=== PATIENT | female | born 1950 | race Caucasian/White ===

== ENCOUNTER 2022-11-02 04:33 | Inpatient (IN) | payer MEDICARE, OTHER, SELFPAY ==
[2022-11-02] VITALS (11 sets, daily range): BP systolic 150–223; BP diastolic 63–85; PULSE 70–85; RESP 16–24; TEMP 36.3–37; O2SAT 90–98; BMI 32.9
--- NOTE | 2022-11-02 | ECG_ITS ---
Test Reason : HYPERTENTION Blood Pressure : / mmHG Vent. Rate : 071 BPM Atrial Rate : 071 BPM P-R Int : 120 ms QRS Dur : 072 ms QT Int : 398 ms P-R-T Axes : 048 042 033 degrees QTc Int : 432 ms Normal sinus rhythm Normal ECG No previous ECGs available Referred By: Generic ED Physician Electronically Signed By:LAESIA LUCIANO MD
--- NOTE | ~2022-11-02 | US_ITS ---
EXAMINATION: US ABDOMEN LIMITED CLINICAL INFORMATION: Gallstone and pancreatitis. COMPARISON: CT abdomen 11/02/2022 TECHNIQUE: Real-time imaging of the right upper quadrant abdominal viscera. FINDINGS: PANCREAS: The pancreatic duct in the region of the head of the pancreas is dilated measuring 6 mm. There is an isoechoic focus in the pancreatic duct in the region of the head of the pancreas measuring 1 x 0.4 x 0.6 cm. No significant posterior acoustic shadowing is seen. This of indeterminate etiology. Differential consideration include mass lesion, neoplasm. Visualized pancreatic parenchymal echogenicity is within normal limits. The distal body and tail is obscured by bowel gas. LIVER: Was not evaluated. GALLBLADDER: Innumerable gallstones, with posterior acoustic shadowing. No gallbladder wall thickening, wall measuring 2 mm. No significant pericholecystic fluid. Chemistry Laboratory Technician reports no tenderness in the area of the gallbladder. . COMMON BILE DUCT: Proximal CBD measures 7 mm. The distal CBD is not visualized. US/US abdomen limited IMPRESSION: Limited study. Only the pancreas and gallbladder is evaluated. 1. Cholelithiasis. No sonographic findings to suggest acute cholecystitis at this stage. Short-term follow-up ultrasound for reassessment as clinically warranted. 2. Proximal CBD is borderline prominent measuring 7 mm. The distal CBD is not visualized. 3. Dilatation of the pancreatic duct in the region of the head of the pancreas measuring 6 mm. There is a isoechoic focus measuring 1 x 0.4 x 0.6 cm in the pancreatic duct, of indeterminate etiology. Differential consideration include mass lesion/neoplasm, intraluminal filling defect/stone. Recommend further evaluation with MRI without and with contrast, MRCP.
--- NOTE | ~2022-11-02 | US_ITS ---
EXAMINATION: US PELVIS CLINICAL INFORMATION: Adnexal mass COMPARISON: CT 11/02/2022 TECHNIQUE: Ultrasound of the pelvis is performed using both transabdominal and transvaginal transducers along with Doppler. Transvaginal imaging is performed due to inadequate visualization transabdominally. FINDINGS: Uterus: Uterus is retroverted and retroflexed. This limits evaluation. No gross lesion identified.. Endometrium is not visualized. Adnexa: There is a right adnexal mass with cystic and solid components. This overall measures 7.2 x 7.4 x 6.3 cm. There is vascular flow seen. This correlates with the finding seen on today's CT scan. The left ovary is not visualized. No significant free fluid. US/US pelvic complete IMPRESSION: As seen on the CT scan from today, there is a mixed cystic and solid masslike focus, with vascularity present, in the right adnexa measuring 7.2 x 7.4 x 6.3 cm. This may reflect a neoplasm. Gynecological consultation and further workup with pre and postcontrast pelvic MRI is recommended. Uterus is retroverted and retroflexed, suboptimally visualized and evaluated. Endometrium is not visualized.
--- NOTE | ~2022-11-02 | CT_ITS ---
EXAMINATION: CT ABDOMEN AND PELVIS WITH CONTRAST CLINICAL INFORMATION: Upper abdominal pain, question etiology COMPARISON: None available. TECHNIQUE: Multidetector volumetric images were obtained from the superior aspect of the liver through the pubic symphysis following administration 85 mL of Omnipaque 350 intravenous contrast. Sagittal and coronal reformatted images were obtained on the technologist's workstation. Oral contrast: No This CT examination was performed using dose optimization techniques as appropriate, variously including the following: *Automated exposure control *Adjustment of mA and/or kV according to patient size (this includes techniques or standardized protocols for targeted exams where dose is matched to indication/reason for exam; i.e. extremities or head) *Use of iterative reconstruction technique DLP: 1413 mGy-cm FINDINGS: LUNG BASES: The visualized lung bases are unremarkable. LIVER, GALLBLADDER, AND BILIARY TREE: The liver is normal in size, shape, and attenuation. No focal hepatic lesion or biliary ductal dilatation is present. Multiple gallstones are present. No appreciable gallbladder wall thickening or surrounding inflammation. PANCREAS: Homogeneously enhancing. There is subtle peripancreatic stranding. SPLEEN: Unremarkable. ADRENAL GLANDS: Unremarkable. KIDNEYS AND URETERS: Multiple renal sinus cysts noted; no follow-up recommended. Bilateral nephrograms are symmetric. Mildly prominent renal pelvises, without obstructing calculus. BLADDER: Unremarkable. GASTROINTESTINAL TRACT: There is some fluid and stranding adjacent to the proximal lesser curvature of the stomach, for which gastritis is a possibility. No evidence of bowel obstruction. Colonic diverticulosis is noted. No significant colonic wall thickening is seen. The appendix is unremarkable. No free fluid or free air is seen. ABDOMINAL WALL: No significant hernia is appreciated. LYMPH NODES: Normal. VASCULAR: Scattered atherosclerotic calcifications. PELVIC VISCERA: Multicystic appearance of the right adnexa, with largest component measuring approximately 4 cm in diameter, though soft tissue components are also present. Overall this has a mixed cystic/solid masslike appearance which measures up to approximately 7 cm in diameter (AP dimension). OSSEOUS STRUCTURES: Degenerative changes are noted in the spine. CT/CT abdomen pelvis w IV con IMPRESSION: 1. Fluid and stranding adjacent to the proximal lesser curvature of the stomach, for which gastritis is a possibility. 2. Subtle peripancreatic stranding. Correlation with laboratory values is recommended to assess for pancreatitis. Alternatively, this could reflect sequelae of inflammation from the adjacent stomach. 3. Cholelithiasis. If there is clinical concern for cholecystitis, this would be best further assessed with ultrasound. 4. Mixed cystic and solid masslike appearance of the right adnexa, measuring up to 7 cm in diameter; this may represent neoplasm. If not already performed, further workup with pre and postcontrast pelvic MRI is recommended.
--- NOTE | ~2022-11-02 | MR_ITS ---
EXAMINATION: MR ABDOMEN AND PELVIS WITHOUT AND WITH CONTRAST CLINICAL INFORMATION: Abnormal pancreatic and pelvic findings on recent CT scan. COMPARISON: CT scan and ultrasound of the abdomen and pelvis both dated 11/02/2022. TECHNIQUE: MRI of the abdomen and pelvis before and after the IV administration of 6 mL of Gadavist was obtained using routine sequences. MRCP was also performed with 3-D reconstructed images on a separate workstation. FINDINGS: Inferior chest: Unremarkable. Liver: Unremarkable. Biliary: Multiple small gallstones without surrounding abnormality. Pancreas: No focal mass. No pancreatic ductal dilatation. No peripancreatic abnormality. Spleen: Unremarkable. Adrenal glands: Unremarkable. Kidneys/proximal ureters: Multiple T2 hyperintense, nonenhancing cysts bilaterally, majority of which are peripelvic. No hydroureteronephrosis. Urinary bladder: Minimally distended without focal abnormality. Bowel: The stomach, small bowel and appendix are unremarkable. The colon shows mild to moderate diverticulosis, most pronounced in the sigmoid colon without surrounding abnormality. The rectum is unremarkable. Pelvic viscera: Anteverted/anteflexed uterus. Asymmetrically enlarged right ovary with multiple T2 hyperintense, nonenhancing cysts. One of the largest measures up to 2.8 cm (image 13, series 3). A left ovary is unremarkable. Mild free fluid in the cul-de-sac. Vascular: Unremarkable. Lymph Nodes: No lymphadenopathy. Musculoskeletal: Mild to severe multilevel degenerative disc disease most pronounced at L2-3, L4-5 and L5-S1. Probable small vertebral body hemangioma in T12. Soft tissues: Very small fat-containing umbilical hernia without associated abnormality. MR/MR abdomen wo/w con IMPRESSION: 1. Cholelithiasis without evidence for acute cholecystitis. 2. No significant pancreatic abnormality. No evidence for acute pancreatitis. 3. Asymmetrically enlarged right ovary with multiple cysts is nonspecific, but demonstrate overall benign features correlating with previous CT and ultrasound findings. Mild free fluid in the cul-de-sac is nonspecific as well. Given the patient's age, short-term follow-up contrast-enhanced pelvic MRI is recommended in 3-6 months to assess for change. 4. Multiple bilateral renal cysts demonstrate benign features. 5. Mild to moderate colonic diverticulosis without evidence for acute diverticulitis.
--- NOTE | 2022-11-02 04:59 | ED_ITS ---
HPI - General Adult General Chief complaint: General Medical Stated complaint: hypertension Time Seen by Provider: 11/02/22 04:59 Source: patient Mode of arrival: EMS Limitations: no limitations History of Present Illness HPI narrative: Patient with no significant past medical history no abdominal surgery in the p ast comes here for upper abdominal pain since afternoon today after she had lunch pain went away during daytime again patient woke up from her sleep around 03:30 to go to bathroom and felt same kind of pain radiating to the back, felt dizzy no diaphoresis patient was elevated to 179/94 patient never had history of high blood pressure no chest pain or palpitation. No urinary symptoms Related Data Allergies Allergy/AdvReac Type Severity Reaction Status Date / Time No Known Allergies Allergy Verified 11/02/22 05:11 Review of Systems Review of Systems: Yes all other systems are reviewed and are negative [facility] Social History Social History Alcohol intake: former Smoked in Last 30 Days: No Use of substances other than those prescribed or required for medical reasons: No Advance Directives: No Advance Directives Information Provided: Yes Physical Exam ED Vital Signs: Vital Signs - 24 hr 11/02/22 04:40 11/02/22 06:14 Temperature 98.4 F 97.9 F Pulse Rate 74 80 Respiratory Rate 20 20 Blood Pressure 223/75 H 203/83 H Pulse Oximetry 98 94 Oxygen Delivery Method Room Air Room Air BMI result Body Mass Index 32.9 Medications Administered Discontinued Medications Generic Name Dose Route Start Last Admin Trade Name Freq PRN Reason Stop Dose Admin Sodium Chloride 1,000 mls @ 999 mls/hr 11/02/22 05:08 11/02/22 06:26 Ns IV 11/02/22 06:08 Infused .Q1H1M ONE Infusion Iohexol 85 ml 11/02/22 06:10 11/02/22 06:10 Iohexol 350 Mg/Ml 100 Ml Infus..Btl IV 11/02/22 06:11 85 ml ONCE ONE Administration Labetalol HCl 20 mg 11/02/22 06:26 11/02/22 06:40 Labetalol Hcl 100 Mg/20 Ml Vial IVPUSH 11/02/22 06:27 20 mg ONCE ONE Administration Morphine Sulfate 4 mg 11/02/22 05:08 11/02/22 05:26 Morphine Sulfate 4 Mg/Ml Cartridge IVPUSH 11/02/22 05:09 4 mg ONCE ONE Administration Protocol Ondansetron HCl 4 mg 11/02/22 05:08 11/02/22 05:25 Ondansetron Hcl 4 Mg/2 Ml Vial IVPUSH 11/02/22 05:09 4 mg ONCE ONE Administration Medical Decision Making Medical Decision Making [facility] Narrative: Patient has acute pancreatitis etiology not clear possible gallstone passed admission to hospitalist will get ultrasound gallbladder GI consult also noticed to have right adnexal mass etiology not very clear possible malignancy Differential Diagnosis Acute cholecystitis/pancreatitis/peptic ulcer disease Consult Healthcare Provider Management of the patient was discussed with: Hospitalist Lab Data [facility] Lab Attestation statement: I reviewed the patient's lab results. 11/02/22 05:11 11/02/22 05:11 Labs: Lab Results 11/02/22 11/02/22 11/02/22 Range/Units 05:11 05:11 05:11 WBC 8.4 (4.8-10.8) X10*3/uL RBC 5.04 (4.20-5.50) X10*6/uL Hgb 14.6 (12.0-16.0) g/dl Hct 43.9 (37.0-47.0) % MCV 87.1 (80.0-98.0) fL MCH 29.0 (27.0-33.0) pg MCHC 33.3 (31.0-35.0) g/dl RDW 12.9 (11.0-16.0) % Plt Count 253 (160-400) X10*3/uL MPV 10.6 (9.4-12.3) fL Immature Gran % (Auto) 0.1 (0.0-0.4) % Neut % (Auto) 63.4 (45-73) % Lymph % (Auto) 27.1 (20-40) % [place] % (Auto) 5.8 (2-11) % Eos % (Auto) 2.5 (0-4) % Baso % (Auto) 1.1 (0-2) % Lymph # (Auto) 2.3 (1.2-4.9) X10*3/uL [place] # (Auto) 0.5 (0.1-1.2) X10*3/uL Eos # (Auto) 0.2 (0.0-0.4) X10*3/uL Baso # (Auto) 0.1 (0.0-0.2) X10*3/uL Abs Immat Gran (auto) 0.01 (0.00-0.03) X10*3/uL Absolute Neuts (auto) 5.3 (2.0-8.3) x10*3/uL Absolute Nucleated RBC 0.000 (0.0-0.012) X10*3/uL Nucleated RBC % (auto) 0.0 (0.0-0.2) /100WBC Sodium 143 (135-145) mmol/L Potassium 4.2 (3.3-5.1) mmol/L Chloride 112 H (96-108) mmol/L Carbon Dioxide 25 (22-29) mmol/L Anion Gap 10 L (12-20) BUN 18 H (9-16) mg/dL Creatinine 0.81 (0.5-1.4) mg/dL Estim Creat Clear Calc 61.2 Estimated GFR > 60 Random Glucose 106 (60-115) mg/dL Calcium 9.4 (8.4-10.2) mg/dL Total Bilirubin 1.4 H (0.0-1.0) mg/dL Direct Bilirubin 0.3 (0.0-0.5) mg/dL AST 167 H (5-31) U/L ALT 303 H (0-31) U/L Alkaline Phosphatase 130 H (39-117) U/L Troponin I High Sens 3.1 (<3.5-17.0) ng/L Total Protein 6.2 L (6.5-8.0) g/dL Albumin 4.1 (3.5-5.0) g/dL Lipase 886 H (8-78) U/L Urine Color Urine Appearance Urine pH (5.0-9.0) Ur Specific [place] (1.005-1.025) Urine Protein (Neg-Trace) mg/dL Urine Glucose (UA) (Negative) mg/dL Urine Ketones (Negative) mg/dL Urine Blood (Negative) Urine Nitrite (Negative) Ur Leukocyte Esterase (Negative) Urine RBC (0-2) /HPF Urine WBC (0-5) /HPF Ur Squamous Epith Cells (0-2) /HPF Urine Bacteria (None Seen) Hyaline Casts (0-2) /LPF 11/02/22 Range/Units 05:32 WBC (4.8-10.8) X10*3/uL RBC (4.20-5.50) X10*6/uL Hgb (12.0-16.0) g/dl Hct (37.0-47.0) % MCV (80.0-98.0) fL MCH (27.0-33.0) pg MCHC (31.0-35.0) g/dl RDW (11.0-16.0) % Plt Count (160-400) X10*3/uL MPV (9.4-12.3) fL Immature Gran % (Auto) (0.0-0.4) % Neut % (Auto) (45-73) % Lymph % (Auto) (20-40) % [place] % (Auto) (2-11) % Eos % (Auto) (0-4) % Baso % (Auto) (0-2) % Lymph # (Auto) (1.2-4.9) X10*3/uL [place] # (Auto) (0.1-1.2) X10*3/uL Eos # (Auto) (0.0-0.4) X10*3/uL Baso # (Auto) (0.0-0.2) X10*3/uL Abs Immat Gran (auto) (0.00-0.03) X10*3/uL Absolute Neuts (auto) (2.0-8.3) x10*3/uL Absolute Nucleated RBC (0.0-0.012) X10*3/uL Nucleated RBC % (auto) (0.0-0.2) /100WBC Sodium (135-145) mmol/L Potassium (3.3-5.1) mmol/L Chloride (96-108) mmol/L Carbon Dioxide (22-29) mmol/L Anion Gap (12-20) BUN (9-16) mg/dL Creatinine (0.5-1.4) mg/dL Estim Creat Clear Calc Estimated GFR Random Glucose (60-115) mg/dL Calcium (8.4-10.2) mg/dL Total Bilirubin (0.0-1.0) mg/dL Direct Bilirubin (0.0-0.5) mg/dL AST (5-31) U/L ALT (0-31) U/L Alkaline Phosphatase (39-117) U/L Troponin I High Sens (<3.5-17.0) ng/L Total Protein (6.5-8.0) g/dL Albumin (3.5-5.0) g/dL Lipase (8-78) U/L Urine Color Yellow Urine Appearance Clear Urine pH 7.5 (5.0-9.0) Ur Specific [place] 1.010 (1.005-1.025) Urine Protein Negative (Neg-Trace) mg/dL Urine Glucose (UA) Negative (Negative) mg/dL Urine Ketones Trace (Negative) mg/dL Urine Blood Negative (Negative) Urine Nitrite Negative (Negative) Ur Leukocyte Esterase Trace H (Negative) Urine RBC 0-2 (0-2) /HPF Urine WBC 0-5 (0-5) /HPF Ur Squamous Epith Cells 0-2 (0-2) /HPF Urine Bacteria None Seen (None Seen) Hyaline Casts 0-2 (0-2) /LPF Independent Interpretation I performed an independent interpretation of an: EKG Interpretation: Normal sinus rhythm heart rate 71 beats per minute normal interval normal axis no acute ST change and no acute ischemia Radiology Impression Discussion of test interpretation with radiology: I have reviewed the radiologist's reading. Radiologist Impression: RDER #: [id number] CT/CT abdomen pelvis w IV con IMPRESSION: 1.? Fluid and stranding adjacent to the proximal lesser curvature of the stomach, for which gastritis is a possibility. 2.? Subtle peripancreatic stranding. Correlation with laboratory values is recommended to assess for pancreatitis. Alternatively, this could reflect sequelae of inflammation from the adjacent stomach. 3.? Cholelithiasis. If there is clinical concern for cholecystitis, this would be best further assessed with ultrasound. 4.? Mixed cystic and solid masslike appearance of the right adnexa, measuring up to 7 cm in diameter; this may represent neoplasm. If not already performed, further workup with pre and postcontrast pelvic MRI is recommended. Discharge Plan Discharge Clinical Impression: Acute biliary pancreatitis Patient Disposition: Admitted As Inpatient
[2022-11-02 05:15] LABS: Basophils Absolute Auto 0.1 X10*3/uL (0.0-0.2); Basophils Percent Auto 1.1 % (0-2); Eosinophils Absolute Auto 0.2 X10*3/uL (0.0-0.4); Eosinophils Percent Auto 2.5 % (0-4); Hematocrit 43.9 % (37.0-47.0); Hemoglobin 14.6 g/dl (12.0-16.0); Imm Gran Abs Auto 0.01 X10*3/uL (0.00-0.03); Imm Gran Pct Auto 0.1 % (0.0-0.4); Lymphocytes Absolute Auto 2.3 X10*3/uL (1.2-4.9); Lymphocytes Percent Auto 27.1 % (20-40); MANUAL DIFF FLAG NO; Mean Corpuscular HGB Conc 33.3 g/dl (31.0-35.0); Mean Corpuscular Volume 87.1 fL (80.0-98.0); Mean Platelet Volume 10.6 fL (9.4-12.3); Monocytes Absolute Auto 0.5 X10*3/uL (0.1-1.2); Monocytes Percent Auto 5.8 % (2-11); Neutrophils Absolute Auto 5.3 x10*3/uL (2.0-8.3); Neutrophils Percent Auto 63.4 % (45-73); Platelet Count 253 X10*3/uL (160-400); Red Blood Count 5.04 X10*6/uL (4.20-5.50); Red Cell Distribution Width 12.9 % (11.0-16.0); White Blood Count 8.4 X10*3/uL (4.8-10.8)
[2022-11-02] MEDS: ondansetron HCL 4 MG/2 ML VIAL IVPUSH (05:25)
[2022-11-02] MEDS: 0.9 % Sodium Chloride 1,000 ML 999 ML IV (05:25)
[2022-11-02] MEDS: Morphine Sulfate 4 MG/ML CARTRIDGE IVPUSH (05:26)
[2022-11-02 05:35] LABS: Anion Gap 10 (12-20); Bilirubin Direct 0.3 mg/dL (0.0-0.5); Bilirubin Total 1.4 mg/dL (0.0-1.0); Blood Urea Nitrogen 18 mg/dL (9-16); Carbon Dioxide 25 mmol/L (22-29); Chloride 112 mmol/L (96-108); Glucose Random 106 mg/dL (60-115); Potassium 4.2 mmol/L (3.3-5.1); Sodium 143 mmol/L (135-145)
[2022-11-02 05:36] LABS: Alanine Aminotransferase 303 U/L (0-31); Albumin Level 4.1 g/dL (3.5-5.0); Alkaline Phosphatase 130 U/L (39-117); Aspartate Amino Transferase 167 U/L (5-31); Calcium 9.4 mg/dL (8.4-10.2); Creatinine Clr Calc Pharmacy 61.2; Estimated Glomerular Filt Rate > 60; Total Protein 6.2 g/dL (6.5-8.0)
[2022-11-02 05:37] LABS: Troponin-I High Sensitivity 3.1 ng/L (<3.5-17.0)
[2022-11-02 05:38] LABS: Appearance Urine Clear; Color Urine Yellow; Glucose Urine UA Negative (Negative); Leukocyte Esterase Urine Trace (Negative); Nitrite Urine Negative (Negative); PH 7.5 (5.0-9.0); UMIC TRIGGER UACC YES; Urine Blood Negative (Negative); Urine Ketones Trace mg/dL (Negative); Urine Protein Negative (Neg-Trace)
[2022-11-02 05:43] LABS: Bacteria Urine None Seen (None Seen); Hyaline Casts Urine 0-2 /LPF (0-2); RBC Urine 0-2 /HPF (0-2); Squamous Epithelial Cell Urine 0-2 /HPF (0-2); WBC Urine 0-5 /HPF (0-5)
[2022-11-02 05:43] LABS: Lipase 886 U/L (8-78)
[2022-11-02] MEDS: iohexoL 350 MG/ML 100 ML INFUS..BTL 85 ML IV (06:10)
[2022-11-02] MEDS: Labetalol HCL 100 MG/20 ML VIAL 20 MG IVPUSH (06:40)
[2022-11-02 08:23] LABS: Triglycerides 95 mg/dL
--- NOTE | 2022-11-02 09:55 | PC.NURSE ---
alert and oreinted.. positive bowel sounds x 4, no complaints of abdominal pain
--- NOTE | 2022-11-02 11:15 | P.HPHOSP_ITS ---
History of Present Illness Date of Service: 11/02/22 Attending physician on admission: Hailey Jasmine Chief Complaint: Abdominal Pain Pt is a 72-year-old female with no significant past medical or surgery history who presents to the ED with?severe abdominal pain and difficulty breathing. Pt states she has been experiencing intermittent heartburn the past 3-4 months. Pain would begin in her lower abdomen then migrate to the pigastric region and sometimes radiate to her back and up to her throat. Pain is described as a burning, gnawing, and sometimes crampy, and typically would last 15-20 minutes. Is usually postprandial but not associated with any specific kinds of food. Yesterday evening pt began experiencing the abdominal pain but it lasted longer than normal. Pt went to bed still feeling off and awoke at 3am with severe pain that would not diminish. Pt also was experiencing nausea and difficulty breathing, which prompted her trip to the ED for further evaluation. Patient denies fever, chills, vomiting, diarrhea. No chest pain/pressure, palpitations. Patient denies recent unexpected weight loss, night sweats, anorexia. No hematochezia, melena, pelvic pain, or abnormal uterine bleeding. In the ED patient was found to be afebrile but tachypneic up to 21 and hypertensive up to 223/75. Labs were significant for hyperbilirubinemia 1.4, AST 167, ALT 303, alk-phos 130, lipase 86. Stable H&H, no leukocytosis. Renal function normal. UA negative for UTI. CT?of abdomen and pelvis the showed fluid and stranding adjacent to lesser curvature of stomach and peripancreatic s tranding, cholelithiasis, and a mixed cystic and solid masslike appearance of the right adnexa measuring 7 cm concerning for neoplasm. Abdominal ultrasound found cholelithiasis without suggestion for acute cholecystitis, dilation of the pancreatic duct in the region of the head of the pancreas measuring 6 mm, and an isoechoic focus measuring 1 x 0.4 x 0.6 cm the pancreatic duct concerning for mass/lesion/neoplasmor intraluminal filling defect/stone. Pelvic ultrasound found a mixed cystic and solid masslike focus with vascularity in the right adnexa measuring 7.2 x 7.4 x 6.3 cm concerning for neoplasm. EKG demonstrated normal sinus rhythm without evidence of ST elevations or depressions. Pt was treated with IVF, ondansetron, morphine, labetalol. Pt will be admitted to the hospital for treatment of acute pancreatitis and further workup of adnexal mass. Review of Systems Review of Systems: Postprandial epigastric abdominal pain occasionally radiating to back and throat Nausea Difficulty breathing Denies fever, chills, vomiting, diarrhea No chest pain/pressure, palpitations Denies recent unexpected weight loss, night sweats, anorexia No hematochezia, melena, pelvic pain, or abnormal uterine bleeding Yes all other systems are reviewed and are negative PMFSH Social History Alcohol intake: former Smoked in Last 30 Days: No Use of substances other than those prescribed or required for medical reasons: No Advance Directives: No Advance Directives Information Provided: Yes Meds Allergies Allergy/AdvReac Type Severity Reaction Status Date / Time No Known Allergies Allergy Verified 11/02/22 05:11 Home Medications Medication Instructions Recorded Confirmed Last Taken Type No Known Home Meds 11/02/22 11/02/22 Unknown History Physical Exam Vital Signs and Narrative: Vital Signs: Last Vital Signs Temp 98.1 F 11/02/22 10:03 Pulse 72 11/02/22 10:19 Resp 21 H 11/02/22 10:19 BP 175/64 H 11/02/22 10:19 Pulse Ox 90 L 11/02/22 10:19 O2 Del Method Nasal Cannula 11/02/22 10:19 O2 Flow Rate 2 11/02/22 10:19 BMI result Body Mass Index 32.9 Constitutional: Alert, in no acute distress. Mental Status: Oriented to person, place and time. Eyes: Pupils are equal, round, and reactive to light. Ear, Nose, and Throat: Oropharynx clear, mucous membranes moist. Ears and nose without deformities. Trachea midline. Respiratory: Clear to auscultation bilaterally. No wheezing, rales, or rhonchi. Cardiovascular: S1, S2 regular. No murmurs, rubs, or gallops. Gastrointestinal: Abdomen soft, non-tender, non-distended. Normal bowel sounds. Neurologic: Cranial nerves II-XII are grossly intact bilaterally. No focal neurological deficits. Moves all extremities spontaneously. Skin: No rashes or lesions noted. Musculoskeletal: No cyanosis or clubbing. No CVA or back tenderness. Extremities: No edema. Psychiatric: Normal mood and affect. Results Labs 11/02/22 05:11 11/02/22 05:11 Labs: Laboratory Results - last 24 hr 11/02/22 11/02/22 11/02/22 05:11 05:11 05:11 MCV 87.1 MCH 29.0 MCHC 33.3 RDW 12.9 Plt Count 253 MPV 10.6 Immature Gran % (Auto) 0.1 Neut % (Auto) 63.4 Lymph % (Auto) 27.1 [place] % (Auto) 5.8 Eos % (Auto) 2.5 Baso % (Auto) 1.1 Lymph # (Auto) 2.3 [place] # (Auto) 0.5 Eos # (Auto) 0.2 Baso # (Auto) 0.1 Abs Immat Gran (auto) 0.01 Absolute Neuts (auto) 5.3 Absolute Nucleated RBC 0.000 Nucleated RBC % (auto) 0.0 Anion Gap 10 L Estim Creat Clear Calc 61.2 Estimated GFR > 60 Random Glucose 106 Calcium 9.4 Total Bilirubin 1.4 H Direct Bilirubin 0.3 AST 167 H ALT 303 H Alkaline Phosphatase 130 H Troponin I High Sens 3.1 Total Protein 6.2 L Albumin 4.1 Triglycerides 95 Lipase 886 H Urine Color Urine Appearance Urine pH Ur Specific [place] Urine Protein Urine Glucose (UA) Urine Ketones Urine Blood Urine Nitrite Ur Leukocyte Esterase Urine RBC Urine WBC Ur Squamous Epith Cells Urine Bacteria Hyaline Casts 11/02/22 05:32 MCV MCH MCHC RDW Plt Count MPV Immature Gran % (Auto) Neut % (Auto) Lymph % (Auto) [place] % (Auto) Eos % (Auto) Baso % (Auto) Lymph # (Auto) [place] # (Auto) Eos # (Auto) Baso # (Auto) Abs Immat Gran (auto) Absolute Neuts (auto) Absolute Nucleated RBC Nucleated RBC % (auto) Anion Gap Estim Creat Clear Calc Estimated GFR Random Glucose Calcium Total Bilirubin Direct Bilirubin AST ALT Alkaline Phosphatase Troponin I High Sens Total Protein Albumin Triglycerides Lipase Urine Color Yellow Urine Appearance Clear Urine pH 7.5 Ur Specific [place] 1.010 Urine Protein Negative Urine Glucose (UA) Negative Urine Ketones Trace Urine Blood Negative Urine Nitrite Negative Ur Leukocyte Esterase Trace H Urine RBC 0-2 Urine WBC 0-5 Ur Squamous Epith Cells 0-2 Urine Bacteria None Seen Hyaline Casts 0-2 Imaging Radiologist's Impressions: Impressions Abdomen/Pelvis CT 11/02/22 06:20 IMPRESSION: 1. Fluid and stranding adjacent to the proximal lesser curvature of the stomach, for which gastritis is a possibility. 2. Subtle peripancreatic stranding. Correlation with laboratory values is recommended to assess for pancreatitis. Alternatively, this could reflect sequelae of inflammation from the adjacent stomach. 3. Cholelithiasis. If there is clinical concern for cholecystitis, this would be best further assessed with ultrasound. 4. Mixed cystic and solid masslike appearance of the right adnexa, measuring up to 7 cm in diameter; this may represent neoplasm. If not already performed, further workup with pre and postcontrast pelvic MRI is recommended. Abdomen Ultrasound 11/02/22 07:30 IMPRESSION: Limited study. Only the pancreas and gallbladder is evaluated. 1. Cholelithiasis. No sonographic findings to suggest acute cholecystitis at this stage. Short-term follow-up ultrasound for reassessment as clinically warranted. 2. Proximal CBD is borderline prominent measuring 7 mm. The distal CBD is not visualized. 3. Dilatation of the pancreatic duct in the region of the head of the pancreas measuring 6 mm. There is a isoechoic focus measuring 1 x 0.4 x 0.6 cm in the pancreatic duct, of indeterminate etiology. Differential consideration include mass lesion/neoplasm, intraluminal filling defect/stone. Recommend further evaluation with MRI without and with contrast, MRCP. Pelvis Ultrasound 11/02/22 07:38 IMPRESSION: As seen on the CT scan from today, there is a mixed cystic and solid masslike focus, with vascularity present, in the right adnexa measuring 7.2 x 7.4 x 6.3 cm. This may reflect a neoplasm. Gynecological consultation and further workup with pre and postcontrast pelvic MRI is recommended. Uterus is retroverted and retroflexed, suboptimally visualized and evaluated. Endometrium is not visualized. Assessment and Plan (1) Adnexal mass: Status: Acute (2) Acute biliary pancreatitis: Status: Acute Plan Pt is a 72-year-old female with no significant past medical or surgery history who presents to the ED with?severe abdominal pain and difficulty breathing. Pt will be admitted to the hospital for treatment of acute pancreatitis and further workup of adnexal mass. Acute pancreatitis Patient with postprandial epigastric pain radiating to her back, elevated lipase, elevated LFTs CT found peripancreatic stranding suggestive of pancreatitis, U/S found isoechoic focus measuring 1 x 0.4 x 0.6 cm the pancreatic duct concerning for mass/lesion/neoplasmor intraluminal filling defect/stone Etiology unclear: Patient does not and has not consumed alcohol, no obstructing stone found; possible pancreatic mass vs passed stone Patient will be NPO for now, advance diet as tolerated Morphine p.r.n. for pain management IVF: Lactated Ringer's Will get MRI of abdomen w/wo contrast GI consult Right adnexal pelvic mass Pelvic ultrasound found a mixed cystic and solid mass-like focus with vascularity in the right adnexa measuring 7.2 x 7.4 x 6.3 cm concerning for neoplasm Patient asymptomatic: No abnormal uterine bleeding, no pelvic pain, no unexpected weight loss, no noticeable fatigue Will get MRI of pelvis w/wo contrast [employer] consult HTN Patient has been hypertensive since presentation with a BP up to 223/75 Patient without history of hypertension, not on home meds Patient received labetalol 20 mg IV push in ED Start patient on amlodipine 5 mg at bedtime Full Code Attending:?Dr. Jasmine DVT Prophylaxis: Lovenox Pt will require a hospitalization of at least two nights for treatment of?acute pancreatitis with bowel rest and IVF, and further evaluation of possible pancreatic and a solid masses concerning for neoplasm with specialist consults. Time Spent With Patient Time: Total time managing care of this patient today ____ minutes. Quality Stroke Does the patient have a stroke diagnosis?: No VTE Prior VTE?: No VTE Risk Level:: Medical - moderate - high VTE Device Contraindication: Treatment Not Indicated VTE Drug Contraindication: N/A - Med Ordered
--- NOTE | 2022-11-02 13:30 | P.CONOB_ITS ---
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 Patient gives a history of early satiety over the last few months with mild abdominal pain, no other additional symptoms. The patient was evaluated in the ED with tachycardia and hypertension. CT?of abdomen and pelvis the showed fluid and stranding adjacent to lesser curvature of stomach and peripancreatic stranding, cholelithiasis, and a mixed cystic and solid masslike appearance of the right adnexa measuring 7 cm concerning for neoplasm.? Abdominal ultrasound found cholelithiasis without suggestion for acute cholecystitis, dilation of the pancreatic duct in the region of the head of the pancreas measuring 6 mm, and an isoechoic focus measuring 1 x 0.4 x 0.6 cm the pancreatic duct concerning for mass/lesion/neoplasmor intraluminal filling defect/stone.? Pelvic ultrasound found a mixed cystic and solid masslike focus with vascularity in the right adnexa measuring 7.2 x 7.4 x 6.3 cm concerning for neoplasm. The patient received IVF, ondansetron, morphine and labetalol. She is admitted to the hospital service. cc:: CC: SURESH Garcia [facility] Social History Social History Alcohol intake: former Smoked in Last 30 Days: No Use of substances other than those prescribed or required for medical reasons: No Advance Directives: No Advance Directives Information Provided: Yes Meds Allergies Allergy/AdvReac Type Severity Reaction Status Date / Time No Known Allergies Allergy Verified 11/02/22 05:11 Active Medications: Current Medications Acetaminophen (Acetaminophen 325 Mg Tablet) 650 mg PO Q6H PRN PRN Reason: Pain, Mild (Pain Scale 1-3) Amlodipine Besylate (Amlodipine Besylate 5 Mg Tablet) 5 mg PO BEDTIME ALMITA; Protocol Docusate Sodium (Docusate Sodium 100 Mg Capsule) 100 mg PO DAILY PRN PRN Reason: Constipation Enoxaparin Sodium (Enoxaparin Sodium 40 Mg/0.4 Ml Syringe) 40 mg SUBCUT Q24H S [place] Lactated Ringer's (Lr) 1,000 mls @ 100 mls/hr IVCONT .Q10H [facility] Morphine Sulfate (Morphine Sulfate 4 Mg/Ml Cartridge) 4 mg IM Q6H PRN; Protocol PRN Reason: Pain, Severe (Pain Scale 8-10) Ondansetron HCl (Ondansetron Hcl 4 Mg/2 Ml Vial) 4 mg IVPUSH Q8H PRN PRN Reason: Nausea and Vomiting Sodium Chloride (0.9 % Sodium Chloride Flush 3 Ml Syringe) 3 ml IVFLUSH QSHIFT [facility] Home Medications Medication Instructions Recorded Confirmed Last Taken Type No Known Home Meds 11/02/22 11/02/22 Unknown History 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 Exam Vitals Vital signs: Temp Pulse Resp BP Pulse Ox O2 Del Method O2 Flow Rate 98.1 F 74 24 H 197/80 H 97 Room Air 2 11/02/22 10:03 11/02/22 12:01 11/02/22 12:01 11/02/22 12:01 11/02/22 12:01 11/02/22 12:01 11/02/22 10:19 BMI result Body Mass Index 32.9 Abdomen Auscultation/Inspection/Palpation: Normal bowel sounds, Soft and Non-distended Female Genitalia (Pelvic) Bladder/Urethra: Normal meatus Vulva: No lesions Vagina: Nontender Cervix: Grossly normal Uterus: Normal size Adnexa/Parametria: Adnexal Tenderness: None and Adnexal Mass: Left (Enlarged 8 c m mass) 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 - Results Labs 11/02/22 05:11 11/02/22 05:11 Labs: Short CBC 11/02/22 Range/Units 05:11 WBC 8.4 (4.8-10.8) X10*3/uL Hgb 14.6 (12.0-16.0) g/dl Hct 43.9 (37.0-47.0) % Plt Count 253 (160-400) X10*3/uL BMP 11/02/22 05:11 Sodium 143 Potassium 4.2 Chloride 112 H Carbon Dioxide 25 BUN 18 H Creatinine 0.81 Calcium 9.4 Liver Function 11/02/22 Range/Units 05:11 Total Bilirubin 1.4 H (0.0-1.0) mg/dL Direct Bilirubin 0.3 (0.0-0.5) mg/dL AST 167 H (5-31) U/L ALT 303 H (0-31) U/L Alkaline Phosphatase 130 H (39-117) U/L Albumin 4.1 (3.5-5.0) g/dL Urine 11/02/22 Range/Units 05:32 Urine Color Yellow Urine Appearance Clear Urine pH 7.5 (5.0-9.0) Ur Specific [place] 1.010 (1.005-1.025) Urine Protein Negative (Neg-Trace) mg/dL Urine Glucose (UA) Negative (Negative) mg/dL Imaging US - abdomen: Radiologist's impression: ITS Impressions Abdomen/Pelvis CT 11/02/22 06:20 IMPRESSION: 1. Fluid and stranding adjacent to the proximal lesser curvature of the stomach, for which gastritis is a possibility. 2. Subtle peripancreatic stranding. Correlation with laboratory values is recommended to assess for pancreatitis. Alternatively, this could reflect sequelae of inflammation from the adjacent stomach. 3. Cholelithiasis. If there is clinical concern for cholecystitis, this would be best further assessed with ultrasound. 4. Mixed cystic and solid masslike appearance of the right adnexa, measuring up to 7 cm in diameter; this may represent neoplasm. If not already performed, further workup with pre and postcontrast pelvic MRI is recommended. Abdomen Ultrasound 11/02/22 07:30 IMPRESSION: Limited study. Only the pancreas and gallbladder is evaluated. 1. Cholelithiasis. No sonographic findings to suggest acute cholecystitis at this stage. Short-term follow-up ultrasound for reassessment as clinically warranted. 2. Proximal CBD is borderline prominent measuring 7 mm. The distal CBD is not visualized. 3. Dilatation of the pancreatic duct in the region of the head of the pancreas measuring 6 mm. There is a isoechoic focus measuring 1 x 0.4 x 0.6 cm in the pancreatic duct, of indeterminate etiology. Differential consideration include mass lesion/neoplasm, intraluminal filling defect/stone. Recommend further evaluation with MRI without and with contrast, MRCP. Pelvis Ultrasound 11/02/22 07:38 IMPRESSION: As seen on the CT scan from today, there is a mixed cystic and solid masslike focus, with vascularity present, in the right adnexa measuring 7.2 x 7.4 x 6.3 cm. This may reflect a neoplasm. Gynecological consultation and further workup with pre and postcontrast pelvic MRI is recommended. Uterus is retroverted and retroflexed, suboptimally visualized and evaluated. Endometrium is not visualized. Assessment and Plan (1) Adnexal mass: Status: Acute Discussed with the patient the findings on CT scan and ultrasound concerning for ovarian neoplasm. Recommend CA 125, CEA and CA 19-9, will refer to roadside mechanic Oncology at [facility] for further management. All questions answered, the patient verbalized understanding Time Spent With Patient Time: Total time managing care of this patient today ____ minutes.
--- NOTE | 2022-11-02 13:39 | PM.GICN ---
History of Present Illness Data of Consult Service Date: 11/02/22 Requesting physician: Hailey Jasmine Primary Care Provider: None Physician HPI Reason for consult: abdominal pain 72-year-old female with no significant past medical or surgery history who I am seeing for abdominal pain Patient has noted gnawing and crampy pain in her lower abdomen with radiation to the epigastric area and back and throat for 3-4 months. Attacks last 15-20 mins and usu occur after eating food. Yesterday the pain was much worse than normal and assoc with nausea, and difficulty breathing with pain being 10/10 in severity wthoiut relieivng factors. Not noted any pale stools or dark urine. Fh of CRC in mother and she is overdue on her colonoscopy. Patient denies fever, chills, vomiting, diarrhea.? No chest pain/pressure, palpitations.? Patient denies recent unexpected weight loss, night sweats, anorexia.? No hematochezia, melena, pelvic pain, or abnormal uterine bleeding. Labs: Bili 1.4, AST 167, ALT 303, alk-phos 130, lipase 886. Stable H&H, no leukocytosis.? Renal function normal.? UA negative for UTI Imaging: CT?of abdomen and pelvis: fluid and stranding adjacent to lesser curvature of stomach and peripancreatic stranding, cholelithiasis, and a mixed cystic and solid masslike appearance of the right adnexa measuring 7 cm concerning for neoplasm.? Abdominal ultrasound: cholelithiasis without suggestion for acute cholecystitis, dilation of the pancreatic duct in the region of the head of the pancreas measuring 6 mm, and an isoechoic focus measuring 1 x 0.4 x 0.6 cm the pancreatic duct concerning for mass/lesion/neoplasmor intraluminal filling defect/stone.? Pelvic ultrasound: a mixed cystic and solid masslike focus with vascularity in the right adnexa measuring 7.2 x 7.4 x 6.3 cm concerning for neoplasm. Review of Systems Review of Systems: Constitutional : No Weight loss, +weight gain, No Fever, No Chills ENT/Mouth : No sore throat, No Rhinorrhea Eyes: No Swelling, No Redness Cardiovascular : , No Edema Respiratory : No Cough, No Sputum, No Wheezing Gastrointestinal : see HPI Genitourinary : NO Dysuria, No Urinary Frequency, No Hematuria, No Urgency Musculoskeletal : No joint pain, No Myalgias, No Joint Swelling Skin : No Skin Lesions, No rash Neuro : No Weakness, No Numbness, No Dizziness, No Headache Psych : No Anxiety/Panic, No Depression Heme/Lymph: No Bruising, No Lymphadenopathy Endocrine : No Polyuria, No Polydipsia All other systems reviewed and are negative. [facility] Family History Pertinent family history: mother with colon cancer Social History Social History Alcohol intake: former Smoked in Last 30 Days: No Use of substances other than those prescribed or required for medical reasons: No Advance Directives: No Advance Directives Information Provided: Yes Meds Allergies Allergy/AdvReac Type Severity Reaction Status Date / Time No Known Allergies Allergy Verified 11/02/22 05:11 Active Medications: Current Medications Acetaminophen (Acetaminophen 325 Mg Tablet) 650 mg PO Q6H PRN PRN Reason: Pain, Mild (Pain Scale 1-3) Amlodipine Besylate (Amlodipine Besylate 5 Mg Tablet) 5 mg PO BEDTIME ALMITA; Protocol Docusate Sodium (Docusate Sodium 100 Mg Capsule) 100 mg PO DAILY PRN PRN Reason: Constipation Enoxaparin Sodium (Enoxaparin Sodium 40 Mg/0.4 Ml Syringe) 40 mg SUBCUT Q24H [facility] Lactated Ringer's (Lr) 1,000 mls @ 100 mls/hr IVCONT .Q10H [facility] Morphine Sulfate (Morphine Sulfate 4 Mg/Ml Cartridge) 4 mg IM Q6H PRN; Protocol PRN Reason: Pain, Severe (Pain Scale 8-10) Ondansetron HCl (Ondansetron Hcl 4 Mg/2 Ml Vial) 4 mg IVPUSH Q8H PRN PRN Reason: Nausea and Vomiting Sodium Chloride (0.9 % Sodium Chloride Flush 3 Ml Syringe) 3 ml IVFLUSH QSHIFT COUNTS INCLUDE 234 BEDS AT THE [facility] Home Medications Medication Instructions Recorded Confirmed Last Taken Type No Known Home Meds 11/02/22 11/02/22 Unknown History Physical Exam Vital Signs: Vital Signs: Last Vital Signs Temp 98.1 F 11/02/22 10:03 Pulse 74 11/02/22 12:01 Resp 24 H 11/02/22 12:01 BP 197/80 H 11/02/22 12:01 Pulse Ox 97 11/02/22 12:01 O2 Del Method Room Air 11/02/22 12:01 O2 Flow Rate 2 11/02/22 10:19 BMI result Body Mass Index 32.9 EXAM: GENERAL: The patient is well developed and nontoxic. VITAL SIGNS:see workflow HEENT: Nonicteric sclerae, PERRLA, EOMI. Oropharynx clear. Moist mucous membranes. Conjunctivae appear well perfused. No thyroid mass. CHEST: Chest wall is nontender. HEART: Regular rate and rhythm without murmurs. LUNGS: Clear to auscultation bilaterally. ABDOMEN: Soft, positive bowel sounds, nontender, no organomegaly.no flank tenderness SKIN: No rash, no excessive bruising, petechiae, or purpura. NEUROLOGIC: Cranial nerves II-XII intact without motor/sensory deficit. psych: nml Results Labs 11/02/22 05:11 11/02/22 05:11 Labs: Short CBC 11/02/22 Range/Units 05:11 WBC 8.4 (4.8-10.8) X10*3/uL Hgb 14.6 (12.0-16.0) g/dl Hct 43.9 (37.0-47.0) % Plt Count 253 (160-400) X10*3/uL BMP 11/02/22 05:11 Sodium 143 Potassium 4.2 Chloride 112 H Carbon Dioxide 25 BUN 18 H Creatinine 0.81 Calcium 9.4 Liver Function 11/02/22 Range/Units 05:11 Total Bilirubin 1.4 H (0.0-1.0) mg/dL Direct Bilirubin 0.3 (0.0-0.5) mg/dL AST 167 H (5-31) U/L ALT 303 H (0-31) U/L Alkaline Phosphatase 130 H (39-117) U/L Albumin 4.1 (3.5-5.0) g/dL Urine 11/02/22 Range/Units 05:32 Urine Color Yellow Urine Appearance Clear Urine pH 7.5 (5.0-9.0) Ur Specific [place] 1.010 (1.005-1.025) Urine Protein Negative (Neg-Trace) mg/dL Urine Glucose (UA) Negative (Negative) mg/dL Imaging CT scan - abdomen: Attestation: I personally reviewed and interpreted this imaging study as follows: (dilated cbd and PD, sludge and stones in GB, adnexal mass lesion) Assessment and Plan (1) Adnexal mass: Status: Acute (2) Acute biliary pancreatitis: Status: Acute (3) Mass of ovary: Status: Acute Plan 1/ Episodic pain with abn imaging with gallstones, sludge and dilated ducts, may have had pancreatiits from gallstones, incidental note of adnexal lesion, may have neoplasia incl Krukenberg tumour ddx; IPMN,cholangio, pancreas ca PLAN; 1/ MRI panc is pending will await 2/ depending on this might need ERCP vs Gb removal or referral for EUS or combination of these 3/ she is seeing hotel or motel receptionist for w/u for the adnexal lesion Time Spent With Patient Time: Total time managing care of this patient today ____ minutes. Procedures Date of Service Date of Service: 11/02/22
[2022-11-02] MEDS: Lactated Ringers 1,000 ML 100 ML IVCONT (13:51)
[2022-11-02] MEDS: Enoxaparin Sodium 40 MG/0.4 ML SYRINGE SUBCUT (13:56)
--- NOTE | 2022-11-02 14:12 | PC.NURSE ---
Bp 190/69 PA aware with new orders for hydralazine 5mg.
--- NOTE | 2022-11-02 14:36 | PM.EVENT ---
Event Note Date of Service: 11/02/22 Event Note: Addendum to history and physical by the advanced practice provider, SURESH Sutton I interviewed and examined the patient. I discussed their presentation and management with the DESIREE. I reviewed the history and physical and agree with the documentation, with the following additions and corrections: 72yo F with no chronic medication conditions presenting with several months of early satiety and mild abdominal discomfort. Pain worsened last night and was associated with nausea and dyspnea. In ED found to have hypertension and tachycardia. CT A/P showed fluid + stranding adjacent to lesser curvature of stomach and peripancreatic stranding, along with mixed cystic/solid vascular R adnexal mass, 7 cm, concerning for neoplasm. US with cholelithiasis, pancreatic duct dilation in the pancreatic head, possible isoechoic focus in the pancreatic duct Plan admit to M/S. NPO, IV fluids, GI consultation. MRI abd/pelvis +/-contrast. [employer] ARCHITECT consultation though will likely require Test Administrator-Onc consultation as outpt at [facility]. Time Spent With Patient Time: Total time managing care of this patient today ____ minutes.
[2022-11-02] MEDS: amLODIPine Besylate 5 MG TABLET PO (14:39)
--- NOTE | 2022-11-02 19:50 | PC.NURSE ---
RN took assignment over at 1900. Pt does not have SOB, or chest pain, no signs of distress. Will attempt to call report. Will continue to monitor.
--- NOTE | 2022-11-02 20:03 | PC.NURSE ---
report given to SHERRELL Webber, pt ready to transferred to Room
--- NOTE | 2022-11-02 20:10 | PC.NURSE ---
4L CPAP. Resp in to assess pt. Changed to 4L nc from oxy mask. Pt requesting to eat, dinner warmed up and will be fed. Michaelle care completed and complete bed change. Will continue to monitor.
[2022-11-03 02:50] VITALS: BP 149/71; PULSE 77; RESP 16; TEMP 36.6; O2SAT 96
[2022-11-03] MEDS: Lactated Ringers 1,000 ML 100 ML IVCONT ×2 (05:20→14:19)
[2022-11-03 07:42] VITALS: BP 180/90; PULSE 88; RESP 16; TEMP 37.2; O2SAT 96
[2022-11-03 07:59] LABS: Alanine Aminotransferase 176 U/L (0-31); Albumin Level 3.7 g/dL (3.5-5.0); Alkaline Phosphatase 106 U/L (39-117); Anion Gap 15 (12-20); Aspartate Amino Transferase 59 U/L (5-31); Bilirubin Total 1.1 mg/dL (0.0-1.0); Blood Urea Nitrogen 12 mg/dL (9-16); Carbon Dioxide 22 mmol/L (22-29); Chloride 109 mmol/L (96-108); Creatinine Clr Calc Pharmacy 65.2; Estimated Glomerular Filt Rate > 60; Glucose Random 99 mg/dL (60-115); Sodium 142 mmol/L (135-145); Total Protein 5.7 g/dL (6.5-8.0)
[2022-11-03 08:06] LABS: Lactate Dehydrogenase 214 U/L (122-220)
[2022-11-03] MEDS: amLODIPine Besylate 10 MG TABLET PO (08:45)
--- NOTE | 2022-11-03 10:51 | MHC.CM.PN ---
pt lives with has nompcp is covid vax does not anticipate needing servceis when dcd
--- NOTE | 2022-11-03 11:09 | HO.PM.IMPN ---
Subjective Subjective Date of Service: 11/03/22 Interval History: no abd pain or discomfort to MRI later today BP high Review of Systems Review of Systems: Yes all other systems are reviewed and are negative Physical Exam Vital Signs: Vital Signs: Last Vital Signs Temp 98.9 F 11/03/22 07:42 Pulse 88 11/03/22 07:42 Resp 16 11/03/22 07:42 BP 180/90 H 11/03/22 07:42 Pulse Ox 96 11/03/22 07:42 O2 Del Method Room Air 11/03/22 07:42 O2 Flow Rate 2 11/02/22 10:19 BMI result Body Mass Index 32.9 Gen: in no acute distress HEENT: sclera anicteric, moist mucus membranes Neck: supple Lungs: clear to auscultation bilaterally Heart: regular rate and rhythm, no murmurs Abd: soft, non-tender, non-distended Ext: no edema Skin: warm/well-perfused Neuro: alert and oriented x3, no focal findings Psych: appropriate affect Objective Data Active Medications Acetaminophen (Acetaminophen 325 Mg Tablet) 650 mg PO Q6H PRN PRN Reason: Pain, Mild (Pain Scale 1-3) Amlodipine Besylate (Amlodipine Besylate 10 Mg Tablet) 10 mg PO DAILY ON LICENSE OF [facility]; Protocol Last Admin: 11/03/22 08:45 Dose: 10 mg Documented By: PATRICIA Docusate Sodium (Docusate Sodium 100 Mg Capsule) 100 mg PO DAILY PRN PRN Reason: Constipation Enoxaparin Sodium (Enoxaparin Sodium 40 Mg/0.4 Ml Syringe) 40 mg SUBCUT Q24H ON LICENSE OF [facility] Last Admin: 11/02/22 13:56 Dose: 40 mg Documented By: MICKEY Lactated Ringer's (Lr) 1,000 mls @ 100 mls/hr IVCONT .Q10H ON LICENSE OF [facility] Last Admin: 11/03/22 10:20 Dose: Not Given Documented By: PATRICIA Non-Admin Reason: IV Running Morphine Sulfate (Morphine Sulfate 4 Mg/Ml Cartridge) 4 mg IM Q6H PRN; Protocol PRN Reason: Pain, Severe (Pain Scale 8-10) Ondansetron HCl (Ondansetron Hcl 4 Mg/2 Ml Vial) 4 mg IVPUSH Q8H PRN PRN Reason: Nausea and Vomiting Sodium Chloride (0.9 % Sodium Chloride Flush 3 Ml Syringe) 3 ml IVFLUSH QSHIFT ALMITA Last Admin: 11/03/22 09:05 Dose: Not Given Documented By: PATRICIA Non-Admin Reason: IV Running Labs 11/02/22 05:11 11/03/22 05:38 Labs: Laboratory Results - last 24 hr 11/02/22 11/03/22 14:37 05:38 Anion Gap 15 Estim Creat Clear Calc 65.2 Estimated GFR > 60 Random Glucose 99 Calcium 9.0 Total Bilirubin 1.1 H AST 59 H ALT 176 H Alkaline Phosphatase 106 Lactate Dehydrogenase 214 Total Protein 5.7 L Albumin 3.7 Carcinoembryonic Ag 2.30 Assessment and Plan (1) Adnexal mass: Status: Acute (2) Acute biliary pancreatitis: Status: Acute Plan 72yo F with no chronic medication conditions presenting with several months of early satiety and mild abdominal discomfort, worse x1d with nausea + dyspnea. Presented with hypertension + tachycardia. CT A/P showed fluid + stranding adjacent to lesser curvature of stomach and peripancreatic stranding, along with mixed cystic/solid vascular R adnexal mass, 7 cm, concerning for neoplasm.? US with cholelithiasis, pancreatic duct dilation in the pancreatic head, possible isoechoic focus in the pancreatic duct # pancreatitis - NPO, IV fluids, prn morphine, MRI/MRCP, GI consulted # adnexal mass - [facility] consulted, pelvic MRI, will need outpt [facility]-Onc consultation # HTN - amlodipine # VTE ppx: LMWH # dispo: anticipate home when taking POs Time Spent With Patient Time: Total time managing care of this patient today _35___ minutes. Quality Stroke Does the patient have a stroke diagnosis?: No VTE Prior VTE?: No VTE Risk Level:: Medical - moderate - high VTE Device Contraindication: Treatment Not Indicated VTE Drug Contraindication: N/A - Med Ordered
[2022-11-03] MEDS: LORazepam 2 MG/ML VIAL 0.5 MG IVPUSH (11:38)
[2022-11-03] MEDS: Enoxaparin Sodium 40 MG/0.4 ML SYRINGE SUBCUT (14:17)
[2022-11-03] MEDS: 0.9 % Sodium Chloride Flush 3 ML SYRINGE IVFLUSH (15:31)
[2022-11-03 19:45] VITALS: BP 145/70; PULSE 78; RESP 17; TEMP 36.7; O2SAT 95
[2022-11-04] MEDS: traZODone HCL 50 MG TABLET PO (00:55)
[2022-11-04] MEDS: 0.9 % Sodium Chloride Flush 3 ML SYRINGE IVFLUSH (00:55)
[2022-11-04 03:23] VITALS: BP 144/65; PULSE 84; RESP 18; TEMP 36.2; O2SAT 95
[2022-11-04] MEDS: Lactated Ringers 1,000 ML 100 ML IVCONT (04:18)
[2022-11-04 06:03] LABS: Hematocrit 39.9 % (37.0-47.0); Hemoglobin 13.2 g/dl (12.0-16.0); Mean Corpuscular HGB Conc 33.1 g/dl (31.0-35.0); Mean Corpuscular Hemoglobin 28.9 pg (27.0-33.0); Mean Corpuscular Volume 87.3 fL (80.0-98.0); Mean Platelet Volume 10.7 fL (9.4-12.3); Platelet Count 249 X10*3/uL (160-400); Red Blood Count 4.57 X10*6/uL (4.20-5.50); White Blood Count 8.5 X10*3/uL (4.8-10.8)
[2022-11-04 06:22] LABS: Alanine Aminotransferase 112 U/L (0-31); Albumin Level 3.6 g/dL (3.5-5.0); Alkaline Phosphatase 90 U/L (39-117); Anion Gap 12 (12-20); Aspartate Amino Transferase 34 U/L (5-31); Blood Urea Nitrogen 10 mg/dL (9-16); Calcium 9.2 mg/dL (8.4-10.2); Carbon Dioxide 25 mmol/L (22-29); Chloride 110 mmol/L (96-108); Estimated Glomerular Filt Rate > 60; Glucose Random 114 mg/dL (60-115); Potassium 3.8 mmol/L (3.3-5.1); Sodium 143 mmol/L (135-145); Total Protein 5.5 g/dL (6.5-8.0)
[2022-11-04] MEDS: amLODIPine Besylate 10 MG TABLET PO (07:52)
[2022-11-04 08:00] VITALS: BP 148/80; PULSE 87; RESP 18; TEMP 36.6; O2SAT 96
[2022-11-04 09:02] LABS: Carbohydrate Antigen 19-9 23 U/mL (<34)
--- NOTE | 2022-11-04 13:47 | P.DS_ITS ---
DS: Providers Provider Date of Service: 11/04/22 Date of admission: 11/02/22 13:01 Date of discharge: 11/04/22 Primary care physician: None Physician Consults: 11/02/22 13:06 Consult to Gastroenterology Routine Consulting Provider: Yasmin Feliciano Reason for consultation: Acute pancreatitis 11/02/22 13:07 Consult to Obstetrics / Gynecology Routine Consulting Provider: Louie Garvey Reason for consultation: Right adnexal mass on CT ?neoplasm DS: Diagnosis Discharge Diagnosis (1) Adnexal mass: Status: Acute (2) Acute biliary pancreatitis: Status: Acute (3) Cholelithiasis: Status: Acute (4) Hypertension: Status: Acute DS: Summary Hospital Course Hospital Course: from admission H+P by hospitalist SURESH Sutton, 11/02/22: Pt is a 72-year-old female with no significant past medical or surgery history who presents to the ED with?severe abdominal pain and difficulty breathing. Pt states she has been experiencing intermittent heartburn the past 3-4 months. Pain would begin in her lower abdomen then migrate to the pigastric region and sometimes radiate to her back and up to her throat. Pain is described as a burning, gnawing, and sometimes crampy, and typically would last 15-20 minutes. Is usually postprandial but not associated with any specific kinds of food. Yesterday evening pt began experiencing the abdominal pain but it lasted longer than normal. Pt went to bed still feeling off and awoke at 3am with severe pain that would not diminish. Pt also was experiencing nausea and difficulty breathing, which prompted her trip to the ED for further evaluation.? Patient denies fever, chills, vomiting, diarrhea.? No chest pain/pressure, palpitations.? Patient denies recent unexpected weight loss, night sweats, anorexia.? No hematochezia, melena, pelvic pain, or abnormal uterine bleeding. In the ED patient was found to be afebrile but tachypneic up to 21 and hypertensive up to 223/75. Labs were significant for hyperbilirubinemia 1.4, AST 167, ALT 303, alk-phos 130, lipase 86. Stable H&H, no leukocytosis.? Renal function normal.? UA negative for UTI. CT?of abdomen and pelvis the showed fluid and stranding adjacent to lesser curvature of stomach and peripancreatic stranding, cholelithiasis, and a mixed cystic and solid masslike appearance of the right adnexa measuring 7 cm concerning for neoplasm.? Abdominal ultrasound found cholelithiasis without suggestion for acute cholecystitis, dilation of the pancreatic duct in the region of the head of the pancreas measuring 6 mm, and an isoechoic focus measuring 1 x 0.4 x 0.6 cm the pancreatic duct concerning for mass/lesion/neoplasmor intraluminal filling defect/stone.? Pelvic ultrasound found a mixed cystic and solid masslike focus with vascularity in the right adnexa measuring 7.2 x 7.4 x 6.3 cm concerning for neoplasm. EKG demonstrated normal sinus rhythm without evidence of ST elevations or depressions. Pt was treated with IVF, ondansetron, morphine, labetalol. Pt will be admitted to the hospital for treatment of acute pancreatitis and further workup of adnexal mass. And from my addendum to the H+P: 72yo F with no chronic medication conditions presenting with several months of early satiety and mild abdominal discomfort.? Pain worsened last night and was associated with nausea and dyspnea. ? In ED found to have hypertension and tachycardia.? CT A/P showed fluid + stranding adjacent to lesser curvature of stomach and peripancreatic stranding, along with mixed cystic/solid vascular R adnexal mass, 7 cm, concerning for neoplasm.? US with cholelithiasis, pancreatic duct dilation in the pancreatic head, possible isoechoic focus in the pancreatic duct We admitted Ms Hutton the medical-surgical floor and placed her on bowel rest/NPO with IV fluid resuscitation and prn morphine. We consulted Gynecology and Gastroenterology and performed a pelvic MRI. Her symptoms resolved and the liver enzymes improved. We advanced her diet. Pelvic MRI showed cholelithiasis without acute cholecystitis. Pancreas was normal. The right ovary was asymeetrically enlarged with multiple non-specific cysts. We arranged follow-up with [facility] Gynecologic Oncology. She also needs General Surgery follow-up for elective cholecystectomy. We discharged her on low-fat diet. Time Spent with Patient Time attestation: Total time managing care of this patient today _40___ minutes. Discharge coordination time: Greater than 30 minutes Quality: Safe Use of Opioids Does Pt have an Active Cancer Diagnosis on the Problem List?: No Quality: Stroke Does the patient have a stroke diagnosis?: No Physical Exam Vital Signs: Vital Signs: Last Vital Signs Temp 97.8 F 11/04/22 08:00 Pulse 87 11/04/22 08:00 Resp 18 11/04/22 08:00 BP 148/80 H 11/04/22 08:00 Pulse Ox 96 11/04/22 08:00 O2 Del Method Room Air 11/04/22 08:00 O2 Flow Rate 2 11/02/22 10:19 BMI result Body Mass Index 32.9 Gen: in no acute distress HEENT: sclera anicteric, moist mucus membranes Neck: supple Lungs: clear to auscultation bilaterally Heart: regular rate and rhythm, no murmurs Abd: soft, non-tender, non-distended Ext: no edema Skin: warm/well-perfused Neuro: alert and oriented x3, no focal findings Psych: appropriate affect DS: Data Data Completed and Pending Completed studies during hospitalization [Text1]: ITS Impressions Abdomen/Pelvis CT 11/02/22 06:20 IMPRESSION: 1. Fluid and stranding adjacent to the proximal lesser curvature of the stomach, for which gastritis is a possibility. 2. Subtle peripancreatic stranding. Correlation with laboratory values is recommended to assess for pancreatitis. Alternatively, this could reflect sequelae of inflammation from the adjacent stomach. 3. Cholelithiasis. If there is clinical concern for cholecystitis, this would be best further assessed with ultrasound. 4. Mixed cystic and solid masslike appearance of the right adnexa, measuring up to 7 cm in diameter; this may represent neoplasm. If not already performed, further workup with pre and postcontrast pelvic MRI is recommended. Abdomen Ultrasound 11/02/22 07:30 IMPRESSION: Limited study. Only the pancreas and gallbladder is evaluated. 1. Cholelithiasis. No sonographic findings to suggest acute cholecystitis at this stage. Short-term follow-up ultrasound for reassessment as clinically warranted. 2. Proximal CBD is borderline prominent measuring 7 mm. The distal CBD is not visualized. 3. Dilatation of the pancreatic duct in the region of the head of the pancreas measuring 6 mm. There is a isoechoic focus measuring 1 x 0.4 x 0.6 cm in the pancreatic duct, of indeterminate etiology. Differential consideration include mass lesion/neoplasm, intraluminal filling defect/stone. Recommend further evaluation with MRI without and with contrast, MRCP. Pelvis Ultrasound 11/02/22 07:38 IMPRESSION: As seen on the CT scan from today, there is a mixed cystic and solid masslike focus, with vascularity present, in the right adnexa measuring 7.2 x 7.4 x 6.3 cm. This may reflect a neoplasm. Gynecological consultation and further workup with pre and postcontrast pelvic MRI is recommended. Uterus is retroverted and retroflexed, suboptimally visualized and evaluated. Endometrium is not visualized. Abdomen MRI 11/03/22 13:30 IMPRESSION: 1. Cholelithiasis without evidence for acute cholecystitis. 2. No significant pancreatic abnormality. No evidence for acute pancreatitis. 3. Asymmetrically enlarged right ovary with multiple cysts is nonspecific, but demonstrate overall benign features correlating with previous CT and ultrasound findings. Mild free fluid in the cul-de-sac is nonspecific as well. Given the patient's age, short-term follow-up contrast-enhanced pelvic MRI is recommended in 3-6 months to assess for change. 4. Multiple bilateral renal cysts demonstrate benign features. 5. Mild to moderate colonic diverticulosis without evidence for acute diverticulitis. Pelvis MRI 11/03/22 13:30 IMPRESSION: 1. Cholelithiasis without evidence for acute cholecystitis. 2. No significant pancreatic abnormality. No evidence for acute pancreatitis. 3. Asymmetrically enlarged right ovary with multiple cysts is nonspecific, but demonstrate overall benign features correlating with previous CT and ultrasound findings. Mild free fluid in the cul-de-sac is nonspecific as well. Given the patient's age, short-term follow-up contrast-enhanced pelvic MRI is recommended in 3-6 months to assess for change. 4. Multiple bilateral renal cysts demonstrate benign features. 5. Mild to moderate colonic diverticulosis without evidence for acute diverticulitis. Laboratory Tests 11/02/22 11/02/22 11/02/22 05:11 05:11 05:11 WBC 8.4 RBC 5.04 Hgb 14.6 Hct 43.9 MCV 87.1 MCH 29.0 MCHC 33.3 RDW 12.9 Plt Count 253 MPV 10.6 Immature Gran % (Auto) 0.1 Neut % (Auto) 63.4 Lymph % (Auto) 27.1 [place] % (Auto) 5.8 Eos % (Auto) 2.5 Baso % (Auto) 1.1 Lymph # (Auto) 2.3 [place] # (Auto) 0.5 Eos # (Auto) 0.2 Baso # (Auto) 0.1 Abs Immat Gran (auto) 0.01 Absolute Neuts (auto) 5.3 Absolute Nucleated RBC 0.000 Nucleated RBC % (auto) 0.0 Sodium 143 Potassium 4.2 Chloride 112 H Carbon Dioxide 25 Anion Gap 10 L BUN 18 H Creatinine 0.81 Estim Creat Clear Calc 61.2 Estimated GFR > 60 Random Glucose 106 Calcium 9.4 Total Bilirubin 1.4 H Direct Bilirubin 0.3 AST 167 H ALT 303 H Alkaline Phosphatase 130 H Lactate Dehydrogenase Troponin I High Sens 3.1 Total Protein 6.2 L Albumin 4.1 Triglycerides 95 Lipase 886 H Carcinoembryonic Ag CA 19-9 Antigen Urine Color Urine Appearance Urine pH Ur Specific [place] Urine Protein Urine Glucose (UA) Urine Ketones Urine Blood Urine Nitrite Ur Leukocyte Esterase Urine RBC Urine WBC Ur Squamous Epith Cells Urine Bacteria Hyaline Casts 11/02/22 11/02/22 11/02/22 05:32 14:37 14:37 WBC RBC Hgb Hct MCV MCH MCHC RDW Plt Count MPV Immature Gran % (Auto) Neut % (Auto) Lymph % (Auto) [place] % (Auto) Eos % (Auto) Baso % (Auto) Lymph # (Auto) [place] # (Auto) Eos # (Auto) Baso # (Auto) Abs Immat Gran (auto) Absolute Neuts (auto) Absolute Nucleated RBC Nucleated RBC % (auto) Sodium Potassium Chloride Carbon Dioxide Anion Gap BUN Creatinine Estim Creat Clear Calc Estimated GFR Random Glucose Calcium Total Bilirubin Direct Bilirubin AST ALT Alkaline Phosphatase Lactate Dehydrogenase Troponin I High Sens Total Protein Albumin Triglycerides Lipase Carcinoembryonic Ag 2.30 CA 19-9 Antigen 23 Urine Color Yellow Urine Appearance Clear Urine pH 7.5 Ur Specific [place] 1.010 Urine Protein Negative Urine Glucose (UA) Negative Urine Ketones Trace Urine Blood Negative Urine Nitrite Negative Ur Leukocyte Esterase Trace H Urine RBC 0-2 Urine WBC 0-5 Ur Squamous Epith Cells 0-2 Urine Bacteria None Seen Hyaline Casts 0-2 11/03/22 11/04/22 11/04/22 05:38 05:42 05:42 WBC 8.5 RBC 4.57 Hgb 13.2 Hct 39.9 MCV 87.3 MCH 28.9 MCHC 33.1 RDW 13.0 Plt Count 249 MPV 10.7 Immature Gran % (Auto) Neut % (Auto) Lymph % (Auto) [place] % (Auto) Eos % (Auto) Baso % (Auto) Lymph # (Auto) [place] # (Auto) Eos # (Auto) Baso # (Auto) Abs Immat Gran (auto) Absolute Neuts (auto) Absolute Nucleated RBC 0.000 Nucleated RBC % (auto) 0.0 Sodium 142 143 Potassium 4.0 3.8 Chloride 109 H 110 H Carbon Dioxide 22 25 Anion Gap 15 12 BUN 12 10 Creatinine 0.76 0.80 Estim Creat Clear Calc 65.2 62.0 Estimated GFR > 60 > 60 Random Glucose 99 114 Calcium 9.0 9.2 Total Bilirubin 1.1 H 1.0 Direct Bilirubin AST 59 H 34 H ALT 176 H 112 H Alkaline Phosphatase 106 90 Lactate Dehydrogenase 214 Troponin I High Sens Total Protein 5.7 L 5.5 L Albumin 3.7 3.6 Triglycerides Lipase Carcinoembryonic Ag CA 19-9 Antigen Urine Color Urine Appearance Urine pH Ur Specific [place] Urine Protein Urine Glucose (UA) Urine Ketones Urine Blood Urine Nitrite Ur Leukocyte Esterase Urine RBC Urine WBC Ur Squamous Epith Cells Urine Bacteria Hyaline Casts Pending studies at discharge: Pending from 11/02/22: CA-125 level Discharge Plan Discharge Anticipated Discharge Date/Time: 11/04/22 13:39 Patient Disposition: Home, Self-Care Discharge Diagnosis: Acute pancreatitis Cholielithiasis Adnexal/ovarian mass Hypertension Referrals: [facility] General Surgery [Provider Group] - 1 Month Bo Arizmendi MD [Physician] - 1 Week Physician,None [Primary Care Provider] - 1 Week Discharge Medications: New amlodipine 10 mg Tablet 10 mg PO DAILY Qty: 30 0RF Protocol: Hold for SBP< HOLD for SBP < : 90 Discharge Orders: Discharge Order (Routine); Ordered 11/04/22 Ordered By: Hailey Jasmine Diet: Low fat, low cholesterol Activity on Discharge: As tolerated Stand Alone Forms: Patient Portal Discharge page Care Plan Goals: Diagnosis of ovarian mass Health Concerns: Acute pancreatitis Cholielithiasis Adnexal/ovarian mass Hypertension Plan of Treatment: Probably passed gallstone. Follow low-fat diet. Follow up with Gynecologic Oncology at [facility] to review plan for ovarian mass: [facility] Gynecologic Oncology [facility], [address], [address] [place],?[place]?[address] Establish primary care as soon as possible. General surgery referral for eventual gallbladder removal. Mediterranean diet. Sodium restriction, maximum 2000 mg/d. Amlodipine 10 mg/d. Assessment: See Discharge Summary.
--- NOTE | 2022-11-04 14:11 | MHC.CM.PN ---
IMM 11/03/22 Female DX Acute Pancreatitis Patient is discharged to home self care. She has arranged for transportation home.
[2022-11-05 12:24] LABS: CA-125 16 U/mL (<35)
== END 2022-11-04 14:38 | disposition home or self-care (01) | DRG 754 ==
LOC: HO.ED 07:29 → HO.EDOVER 13:09 → HO.S3 18:01
PROVIDERS: Obstetrics & Gynecology; Admitting Provider Student in an Organized Health Care Education/Training Program; Emergency Provider Internal Medicine; Visit Provider Family Medicine
DX: C57.4 Malignant neoplasm of uterine adnexa, unspecified (principal); K85.10 Biliary acute pancreatitis without necrosis or infection; K80.20 Calculus of gallbladder without cholecystitis without obstruction; I10 Essential (primary) hypertension; Z79.899 Other long term (current) drug therapy
CPT/HCPCS: 36415; 72197; 74177; 74183; 76705; 76856; 80048; 80053; 80076; 81001; 82378; 83615; 83690; 84478; 84484; 85025; 85027; 86301; 86304; 93005; 99285; A9585; J1650; J2060; J2270; J2405; Q9967

== ENCOUNTER 2023-07-18 07:46 | Outpatient (AMB) | payer MEDICARE, OTHER, SELFPAY ==
--- NOTE | 2023-07-18 08:01 | A.OFFPC_ITS ---
Vital Signs 07/18/23 08:02 Height 5 ft 2 in Weight 181 lb BMI 33.1 BP 160/98 H Blood Pressure Location Lt brachial Position Sitting Pulse 89 Pulse Source Pulse Oximeter Pulse Oximetry (%) 98 Oxygen Delivery Method Room Air Intake Visit Reasons: NPV/medical issues Allergies No Known Allergies Allergy (Verified 07/18/23 08:02) Tobacco use date assessed: 07/18/23 Fall risk assessment: No Falls in past year Last assessed Fall Risk: 07/18/23 Dental Screening Dental Screen Date: 07/18/23 Did you have a dental visit in the last 12 months?: No Did you have a dental problem in the last 6 months where you did not have access to dental care?: No Was dental information given to patient?: Patient has dentist HPI NPV/medical issues HPI Details 73-year-old female [facility] her care. She has not had a primary care provider since 2013. Patient was seen in [facility] in November 2022 for abdominal pain. She was admitted with a diagnosis of cholecystitis. Patient was found to have gallstones and hypertension. She was discharged on amlodipine. Patient has long since discontinued the amlodipine. She has been checking her blood pressures at home and they have been stable. An ultrasound done during the hospitalization showed large cysts in the ovary. After discharge patient has had an oophorectomy done in [facility]. Patient used to live in [place] in the last few months and has now returned to the area. [facility] Medical History (Updated 07/18/23 @ 08:47 by Prince Esposito MD) Hypertension Cholelithiasis Surgical History (Updated 07/18/23 @ 08:48 by Prince Esposito MD) S/P bilateral oophorectomy Family History Mother Lung cancer Father Stroke Sister Breast cancer Social History Household Members: Spouse Housing: House Do you presently have visiting nurse or other home services: No Alcohol intake: former Patient Tobacco Use Status: Never used Tobacco e-Cigarette/Vaping Use: Never Used Second Hand Smoke Exposure: No service: No Current occupational status: retired Cognitive needs: No Hearing needs: No Vision needs: Yes Questionnaire PHQ-9 Over the last 2 weeks, how often have you been bothered by any of the following problems? 1. Little interest or pleasure in doing things: several days 2. Feeling down, depressed, or hopeless: several days 3. Trouble falling or staying asleep, or sleeping too much: not at all 4. Feeling tired or having little energy: not at all 5. Poor appetite or overeating: not at all 6. Feeling bad about yourself - or that you are a failure or have let yourself or your family down: not at all 7. Trouble concentrating on things, such as reading the newspaper or watching television: not at all 8. Moving or speaking so slowly that other people could have noticed. Or the opposite - being so fidgety or restless that you have been moving around a lot more than usual: not at all 9. Thoughts that you would be better off or of hurting yourself in some way: not at all Total score: 2 Depression Screening Interpretation: Negative Depression Screening Done: Yes Source: Developed by Drs. Yohannes Guevara, Pam Villaseñor, Chriss Ring and colleagues, with an educational marvin from [employer]. Thrive Questionnaire Date Thrive assessed: 07/18/23 I am a: Patient What is your living situation today?: I have a steady place to live Within the past 12 months, did the food you bought not last and you didn't have the money to get more?: Never true Within the past 12 months, did you worry whether your food would run out before you got money to buy more?: Never true Do you have trouble paying for medicines?: No Do you have trouble getting transportation to medical appointments?: No Do you have trouble paying your heating and electricity bill?: No Do you have trouble taking care of your child, family member or friend?: No Do you have trouble with day-to-day activities such as bathing, preparing meals, shopping, managing finances, etc.?: No Are you currently unemployed and looking for a job?: No Are you interested in more education?: No Currently or been in a relationship where the following occur: no concerns reported AUDIT C Alcohol Use Questionnaire (AUDIT-C) 1. How often do you have a drink containing alcohol?: Monthly or less 2. How many drinks containing alcohol do you have on a typical day when you are drinking?: 1 or 2 3. How often do you have six or more drinks on one occasion?: Never Total Score: 1 GEOVANI-7 AMB Questionnaire GEOVANI-7 Date GEOVANI - 7 assessed: 07/18/23 Feeling nervous, anxious, or on edge: 1 = Several days Not being able to stop or control worryin = Several days Worrying too much about different things: 1 = Several days Trouble relaxin = Not at all Being so restless that it is hard to sit still: 0 = Not at all Becoming easily annoyed or irritable: 0 = Not at all Feeling afraid as if something awful might happen: 0 = Not at all Total GEOVANI-7 score (0-4 normal; 5-9 mild; 10-14 moderate; 15-21 severe): 3 Source: Developed by Drs. Yohannes Guevara, Pam Villaseñor, Chriss Ring and colleagues, with an educational marvin from [employer]. Physical exam (Primary Care) Vital Signs: Last Vital Signs Pulse 89 07/18/23 08:02 BP 160/98 H 07/18/23 08:02 Pulse Ox 98 07/18/23 08:02 Oxygen Delivery Method Room Air 07/18/23 08:02 Care Plan Goal for BP management: Blood pressure medications have been restarted. BMI result Body Mass Index 33.1 BMI Assessment/Plan discussion: High (1 lb per week weight loss suggested.) BMI High, discussed plan: lifestyle, weight reduction and dietary Tobacco/Smoking Status: Tobacco use Status Tobacco use date assessed 07/18/23 07/18/23 08:04 Patient Tobacco Use Status Never used Tobacco 07/18/23 08:04 e-Cigarette/Vaping Use Never Used 07/18/23 08:04 PHQ-9: PHQ-9 Score PHQ-9: Total score 2 07/18/23 08:13 Depression Screening Interpretation: Negative Thrive Assessment: Date of Thrive Assessment Date Thrive assessed 07/18/23 07/18/23 08:13 Currently or been in a relationship where the following occur: no concerns reported Advance Care Planning discussion: Exists, not on file Date of discussion: 07/18/23 Who was present: Patient and Forms completed: Health Care Proxy Time spent: 1-15 minutes, not on file Actual minutes spent: 5 Const General: cooperative and healthy appearing Nutritional Appearance: well nourished Orientation/consciousness: patient oriented x3 Limitations: no limitations HENMT Head: Yes normal to inspection Eyes General: appearance normal, both eyes and all related structures Neck Neck: Yes normal visual inspection Chest Chest palpation & inspection: normal palpation of entire chest wall Resp Effort & Inspection: normal respiratory effort Neuro General: patient oriented x3 Assessment and Plan Assessment & Plan (1) Hypertension: Code(s): I10 - Essential (primary) hypertension Plan: Patient was encouraged to restart her medications. 20 minutes was spent in counseling the patient about the dangers of uncontrolled hypertension. Amlodipine was discontinued and lisinopril ordered. Blood work to check kidney functions has been scheduled. (2) Cholelithiasis: Code(s): K80.20 - Calculus of gallbladder without cholecystitis without obstruction Plan: Ultrasound of the abdomen was reviewed. Patient has cholelithiasis. Patient will decide if she would like to get an elective cholecystectomy. Mammogram has been scheduled. Screening colonoscopy has been scheduled. Orders: Orders Influenza [id number] Immunization Today Z23 - Encounter for immunization MM screening mammo BI Today Z12.31 - Encounter for screening mammogram for malignant neoplasm of breast Lipid Panel Today I10 - Essential (primary) hypertension, K80.20 - Calculus of gallbladder without cholecystitis without obstruction UA and rflx microscopic Today I10 - Essential (primary) hypertension, K80.20 - Calculus of gallbladder without cholecystitis without obstruction Basic Metabolic Panel Today I10 - Essential (primary) hypertension, K80.20 - Calculus of gallbladder without cholecystitis without obstruction Complete Blood Count no Diff Today I10 - Essential (primary) hypertension, K80.20 - Calculus of gallbladder without cholecystitis without obstruction Liver Panel Today I10 - Essential (primary) hypertension, K80.20 - Calculus of gallbladder without cholecystitis without obstruction Thyroid Stimulating Hormone Today I10 - Essential (primary) hypertension, K80.20 - Calculus of gallbladder without cholecystitis without obstruction Medications: New lisinopril 10 mg PO DAILY 90 tabs 1RF flu vacc [id number] 6mos up(PF) 0.5 mL IM ONCE 0.5 mL 0RF Z23 - Encounter for immunization Coding Level of Care Code New Pt Level 4 (42995) Diagnoses Hypertension I10 Cholelithiasis K80.20 Additional Codes Vital Signs *Quality* - Advance Care Planning discussion: Exists, not on file ([id number]) Vital Signs *Quality* - Time spent: 1-15 minutes, not on file ([id number])
[2023-07-18 08:02] VITALS: BP 160/98; PULSE 89; O2SAT 98; BMI 33.1
== END 2023-07-18 08:59 | disposition home or self-care (01) ==
PROVIDERS: PCP Internal Medicine; Visit Provider Internal Medicine
DX: I10 Essential (primary) hypertension (principal); K80.20 Calculus of gallbladder without cholecystitis without obstruction; Z23 Encounter for immunization; Z00.00 Encounter for general adult medical examination without abnormal findings
CPT/HCPCS: 1124F; 90471; 90686; 99204

== ENCOUNTER 2023-07-18 09:05 | Outpatient (REF) | payer MEDICARE, OTHER, SELFPAY ==
[2023-07-18 09:56] LABS: Hematocrit 46.5 % (37.0-47.0); Hemoglobin 15.3 g/dl (12.0-16.0); Mean Corpuscular HGB Conc 32.9 g/dl (31.0-35.0); Mean Corpuscular Hemoglobin 29.2 pg (27.0-33.0); Mean Corpuscular Volume 88.7 fL (80.0-98.0); Platelet Count 285 X10*3/uL (160-400); Red Blood Count 5.24 X10*6/uL (4.20-5.50); Red Cell Distribution Width 12.7 % (11.0-16.0); White Blood Count 7.6 X10*3/uL (4.8-10.8)
[2023-07-18 10:51] LABS: Alanine Aminotransferase 16 U/L (0-31); Albumin Level 4.5 g/dL (3.5-5.0); Alkaline Phosphatase 55 U/L (39-117); Anion Gap 11 (12-20); Aspartate Amino Transferase 18 U/L (5-31); Bilirubin Direct 0.2 mg/dL (0.0-0.5); Bilirubin Total 0.7 mg/dL (0.0-1.0); Blood Urea Nitrogen 17 mg/dL (9-16); Calcium 9.9 mg/dL (8.4-10.2); Carbon Dioxide 28 mmol/L (22-29); Chloride 108 mmol/L (96-108); Cholesterol 304 mg/dL (<200); Estimated Glomerular Filt Rate > 60; Glucose Random 111 mg/dL (60-115); HDL Cholesterol 54 mg/dL (>40); LDL Cholesterol Calculated 209 mg/dL (<100); Sodium 143 mmol/L (135-145); Total Protein 7.4 g/dL (6.5-8.0); Triglycerides 208 mg/dL (<150)
[2023-07-18 11:08] LABS: Thyroid Stimulating Hormone 1.44 uIU/mL (0.32-4.0)
[2023-07-18 11:36] LABS: Appearance Urine Clear; Color Urine Yellow; Glucose Urine UA Negative (Negative); Leukocyte Esterase Urine Trace (Negative); Nitrite Urine Negative (Negative); UMIC TRIGGER UA YES; Urine Blood Negative (Negative); Urine Ketones Negative (Negative); Urine Protein Negative (Neg-Trace)
[2023-07-18 11:39] LABS: Bacteria Urine None Seen (None Seen); Hyaline Casts Urine 0-2 /LPF (0-2); RBC Urine 0-2 /HPF (0-2); Squamous Epithelial Cell Urine 0-2 /HPF (0-2); WBC Urine 0-5 /HPF (0-5)
== END 2023-07-18 09:06 | disposition home or self-care (01) ==
LOC: HO.LAB 09:05
PROVIDERS: PCP Internal Medicine; Visit Provider Internal Medicine
DX: I10 Essential (primary) hypertension (principal); K80.20 Calculus of gallbladder without cholecystitis without obstruction
CPT/HCPCS: 36415; 80048; 80061; 80076; 81001; 84443; 85027

== ENCOUNTER 2023-08-19 09:39 | Outpatient (REF) | payer MEDICARE, OTHER, SELFPAY ==
--- NOTE | ~2023-08-19 | MM_ITS ---
EXAMINATION: MM SCREENING DIGITAL BREAST TOMOSYNTHESIS, BILATERAL CLINICAL INFORMATION: Screening. Asymptomatic. COMPARISON: Mammography: There are no prior mammograms available for comparison in over 10 years. The prior mammograms at an outside institution, which took place in 2013 and earlier, have been purged and are unavailable. This study will function as a new baseline examination. TECHNIQUE: Digital breast tomosynthesis is performed in both the craniocaudal and mediolateral oblique views along with computer-aided detection (CAD). Synthesized 2D images are generated from the tomosynthesis. FINDINGS: There are scattered areas of fibroglandular density (ACR BI-RADS breast composition Category b). There are no significant masses, abnormal calcifications, or other abnormalities. There is a tissue marker in each breast from prior benign percutaneous biopsies. In the left breast, the tissue marker is in the lateral location and in the right breast the tissue marker is in the medial location. MM/MM tomosynthesis screening BI IMPRESSION: No mammographic evidence of malignancy. ASSESSMENT: BI-RADS BI-RADS 2 - Benign Findings RECOMMENDATION: Routine annual mammography screening. 1 year F/U This examination should not preclude the clinical evaluation of a suspicious palpable abnormality. This patient's information was entered into a reminder system with a target due date for their next mammogram.
== END 2023-08-19 09:40 | disposition home or self-care (01) ==
LOC: HO.MAMMO 09:39
PROVIDERS: PCP Internal Medicine; Visit Provider Internal Medicine
DX: Z12.31 Encounter for screening mammogram for malignant neoplasm of breast (principal)
CPT/HCPCS: 77063; 77067

== ENCOUNTER → 2023-08-19 10:00 | Outpatient (BNV) | payer MEDICARE, OTHER, SELFPAY | PROVIDERS: PCP Internal Medicine; Visit Provider Radiology Diagnostic Radiology | DX: Z12.31 Encounter for screening mammogram for malignant neoplasm of breast (principal) | CPT/HCPCS: 77063; 77067 ==

== ENCOUNTER → 2023-08-29 11:42 | Outpatient (BNVA) | payer MEDICARE, OTHER, SELFPAY | PROVIDERS: PCP Internal Medicine; Visit Provider Nurse Practitioner Family ==

== ENCOUNTER 2023-10-02 16:26 | Emergency (ER) | payer MEDICARE, OTHER, SELFPAY ==
--- NOTE | 2023-10-02 16:35 | ED.GENADULT ---
HPI - General Adult General Chief complaint: Ear Problems Stated complaint: ear bud cap stuck in ear Time Seen by Provider: 10/02/23 17:39 Source: patient Mode of arrival: ambulatory Limitations: no limitations History of Present Illness HPI narrative: 73 yold female with pmh of HTN presents to the ED thinking there is a white air pod bud was stuck in her right ear and wanted it extracted. patient states no other complaints. Related Data Previous Rx's Medication Instructions Recorded lisinopril 10 mg tablet 10 mg PO DAILY #90 tabs 07/18/23 atorvastatin 10 mg tablet 10 mg PO BEDTIME #90 tabs 07/22/23 bisacodyl 5 mg tablet,delayed 20 mg (4 x 5 mg) PO ONCE 1 day #4 08/29/23 release (Dulcolax (bisacodyl)) tabs polyethylene glycol 3350 17 238 g PO ONCE #238 grams 08/29/23 gram/dose oral powder (Miralax) propranolol 10 mg tablet 10 mg PO ONCE PRN anxiety #5 tabs 08/29/23 carbamide peroxide 6.5 % ear drops 5 drp otic (ear) right Q12H 4 days 10/02/23 (Debrox) #15 mL Allergies Allergy/AdvReac Type Severity Reaction Status Date / Time No Known Allergies Allergy Verified 10/02/23 16:35 Review of Systems Review of Systems: right ear air pod bud stuck in ear. Yes all other systems are reviewed and are negative [facility] Past Medical History Medical History (Updated 10/03/23 @ 00:01 by Nanda Alonso) Anxiety Hypertension Cholelithiasis Surgical History H/O colonoscopy S/P bilateral oophorectomy Family History Family History Mother Lung cancer Father Stroke Sister Breast cancer Social History Social History Household Members: Spouse Housing: House Do you presently have visiting nurse or other home services: No Alcohol intake: former Patient Tobacco Use Status: Never used Tobacco e-Cigarette/Vaping Use: Never Used Second Hand Smoke Exposure: No Advance Directives: No Advance Directives Information Provided: No service: No Current occupational status: retired Cognitive needs: No Hearing needs: No Vision needs: Yes Physical Exam ED Vital Signs: Vital Signs - 24 hr 10/02/23 16:36 10/02/23 18:46 10/02/23 19:59 Temperature 98.2 F 98.0 F Pulse Rate 93 93 Respiratory Rate 16 20 Blood Pressure 227/95 H 264/98 H 190/100 H Pulse Oximetry 97 100 Oxygen Delivery Method Room Air Room Air BMI result Body Mass Index 33.9 Const Other: right ear cerumen impaction General: cooperative, healthy appearing, comfortable, no acute distress, well developed, alert and awake Orientation/consciousness: oriented to person, oriented to place, oriented to time and patient oriented x3 HENMT Head: Yes normal to inspection, Yes No palpable skull fracture present, Yes normocephalic and Yes atraumatic Ears: hearing grossly normal bilaterally, external ears normal, TM normal on the right, TM normal on the left, EAC's normal, mastoids normal, no periauricular adenopathy, external ear abnormal and unable to visualize TM (cerumen impaction) Eyes General: appearance normal, both eyes and all related structures Neck Neck: Yes normal visual inspection, Yes full ROM, Yes no lymphadenopathy, Yes no meningeal signs, Yes trachea midline, Yes supple, No anterior neck swelling and No tender Chest Chest palpation & inspection: normal inspection of the chest and normal palpation of entire chest wall Resp Effort & Inspection: normal respiratory effort and able to speak in complete sentences Auscultation: clear to auscultation bilaterally Cardio Jugular venous distension: no JVD Heart sounds: S1 normal heart sound present and S2 normal heart sound present GI Inspection: Yes normal to inspection and No abdominal wall ecchymosis Palpation (GI): Soft to palpation, not firm, nontender, no guarding and not rigid General: No CVA tenderness and Yes no CVA tenderness Back/Spine/Pelvis Back: no CVA tenderness, No CVA tenderness and No back tenderness Skin General skin exam: no rashes or lesions noted, elasticity normal and turgor normal Neuro General: oriented to person, oriented to place, oriented to time, patient oriented x3, gait normal, tone normal, moves all extremities, Normal light touch and pain sensation, no meningeal signs, no focal motor deficits and CN's II-XI intact bilaterally Extrem General: Yes normal to inspection, Yes full ROM and Yes capillary refill normal Psych Appearance: grossly normal, well kempt and not disheveled Course Course Course Narrative: This is an RME: Additional HPI, ROS, PE not included below will be deferred to primary provider. 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 On exam has near complete impaction with cerumen, though there is a very small area that potentially an ear bud tip could have passed through Medical Decision Making Medical Decision Making MDM Narrative: 73-year-old female with possible foreign body in the ear and having cerumen impaction. Right ear cleaned with hydroxygen peroxide with normal saline and currette to excrete cerumen. Negative for any foreign body in right ear. Blood pressure elevated throughout ED visit and patient does not want medical evaluation including labs head CT or EKG and blood pressure meds. Patient explained worrisome signs including stroke, [place], and kidney failure and informed to return to the ED if she has them. Patient states she will follow up with PCP tomorrow. Differential Diagnosis Differential Diagnoses: The differential diagnosis associated with the presentation includes (foreign body, otitis media/externa, cerumen impaction) Admission/Observation Consideration of admission/observation: Escalation of care including admission/observation considered Independent Historian Clinical information obtained from an independent historian. History obtained from or confirmed by: Spouse and Other (patient) External Record Review External record reviewed: Other (Prior visits) Prescription Management I considered prescription management with: Other (Debrox) Chronic Conditions Patient?s care impacted by: Hypertension Discharge Plan Discharge Clinical Impression: Hypertension, Cerumen impaction Patient Disposition: Left Against Medical Advice Instructions: Carbamide Peroxide (Into the ear), Hypertension (ED) Additional Instructions: return to the ED immediately for any facial droop, slurred speech, paralysis of extremities, headache, loss of vision, nausea, vomiting, severe ear pain, ear drainage, fever, chills, bleeding from the ears, dizziness, or any other concerning symptoms. Prescriptions: New Debrox 6.5 % drops 5 drp otic (ear) right Q12H 4 Days Qty: 15 0RF No Action atorvastatin 10 mg tablet 10 mg PO BEDTIME Qty: 90 1RF lisinopril 10 mg tablet 10 mg PO DAILY Qty: 90 1RF bisacodyl [Dulcolax (bisacodyl)] 5 mg tablet,delayed release (DR/EC) 20 mg PO ONCE 1 Days Qty: 4 0RF Rx Instructions: take 4 tabs at noon the day before your colonoscopy polyethylene glycol 3350 [Miralax] 17 gram/dose powder 238 g PO ONCE Qty: 238 0RF Rx Instructions: As directed by gastroenterology department at [facility] propranolol 10 mg tablet 10 mg PO ONCE PRN (Reason: anxiety) Qty: 5 0RF Stand Alone Forms: Against Medical Advice, Work/School Release Interventions: ED Discharge Assessment Last Done: 10/02/23 20:26 Discharge Date/Time: 10/02/23 20:27 Print Language: Lithuanian
[2023-10-02 16:36] VITALS: BP 227/95; PULSE 93; RESP 16; TEMP 36.8; O2SAT 97; BMI 33.9
[2023-10-02 18:46] VITALS: BP 264/98; PULSE 93; RESP 20; TEMP 36.7; O2SAT 100
[2023-10-02 19:59] VITALS: BP 190/100
[2023-10-02 20:26] VITALS: BP 190/100; PULSE 93; RESP 20; TEMP 36.7; O2SAT 100
== END 2023-10-02 20:27 | disposition left against medical advice (07) ==
PROVIDERS: Emergency Provider Emergency Medicine Emergency Medical Services; PCP Internal Medicine
DX: H61.21 Impacted cerumen, right ear (principal); I10 Essential (primary) hypertension
CPT/HCPCS: 69210; 99282; 99283

== ENCOUNTER 2023-11-03 09:52 | Outpatient (AMB) | payer MEDICARE, OTHER, SELFPAY ==
--- NOTE | 2023-11-03 10:05 | MHC.PC.OV ---
Vital Signs 11/03/23 10:06 11/03/23 10:17 11/03/23 13:22 Height 5 ft 2 in Weight 180 lb 4 oz BMI 33.0 BP 180/100 H 160/80 H 111/69 Blood Pressure Location Lt brachial Lt brachial Lt radial Position Sitting Sitting Pulse 85 Pulse Source Pulse Oximeter Pulse Oximetry (%) 97 Oxygen Delivery Method Room Air Intake Visit Reasons: 3mth f/u Intake Note: Patient is here to follow up on HTN, Anxiety, Cholelithiasis. Vacation Planner Required: No Hands Hanger: Present Accompanied by: Spouse Allergies No Known Allergies Allergy (Verified 11/03/23 10:06) Tobacco use date assessed: 11/03/23 Fall risk assessment: No Falls in past year Last assessed Fall Risk: 11/03/23 Dental Screening Dental Screen Date: 07/18/23 HPI 3mth f/u HPI Details 73-year-old female presents to the office to discuss her chronic medical conditions. Since last office visit patient has been compliant with her lisinopril. She had an insurance physical 2 weeks ago at home. Her blood pressure was recorded at 122/70. Patient reports no symptoms of headache, chest pain or shortness of breath. Able to function and do all activities of daily living. Patient has been compliant with her statins and reporting no side effects. [facility] Medical History Familial hypercholesterolemia Anxiety Hypertension Cholelithiasis Surgical History H/O colonoscopy S/P bilateral oophorectomy Family History Mother Lung cancer Father Stroke Sister Breast cancer Social History Household Members: Spouse Housing: House Do you presently have visiting nurse or other home services: No Alcohol intake: current Alcohol intake frequency: holidays/special occasions only Patient Tobacco Use Status: Never used Tobacco e-Cigarette/Vaping Use: Never Used Second Hand Smoke Exposure: No service: No Current occupational status: retired Cognitive needs: No Hearing needs: No Vision needs: Yes Questionnaire Thrive Questionnaire Date Thrive assessed: 07/18/23 GEOVANI-7 AMB Questionnaire GEOVANI-7 Date GEOVANI - 7 assessed: 07/18/23 Source: Developed by Drs. Yohannes Guevara, Pam Villaseñor, Chriss Ring and colleagues, with an educational marvin from [employer]. Physical exam (Primary Care) Vital Signs: Last Vital Signs Pulse 85 11/03/23 10:06 BP 160/80 H 11/03/23 10:17 Pulse Ox 97 11/03/23 10:06 Oxygen Delivery Method Room Air 11/03/23 10:06 Care Plan Goal for BP management: Repeat blood pressure was 111/69. No medication change. BMI result Body Mass Index 33.0 BMI Assessment/Plan discussion: High (1 lb per week weight loss suggested.) BMI High, discussed plan: lifestyle, weight reduction, dietary and physical activity Tobacco/Smoking Status: Tobacco use Status Tobacco use date assessed 11/03/23 11/03/23 10:10 Patient Tobacco Use Status Never used Tobacco 11/03/23 10:13 e-Cigarette/Vaping Use Never Used 11/03/23 10:13 Thrive Assessment: Date of Thrive Assessment Date Thrive assessed 07/18/23 11/03/23 10:10 Const General: cooperative and healthy appearing Nutritional Appearance: well nourished Orientation/consciousness: patient oriented x3 Limitations: no limitations HENMT Head: Yes normal to inspection Eyes General: appearance normal, both eyes and all related structures Neck Neck: Yes normal visual inspection Chest Chest palpation & inspection: normal palpation of entire chest wall Resp Effort & Inspection: normal respiratory effort Neuro General: patient oriented x3 Assessment and Plan Assessment & Plan (1) Familial hypercholesterolemia: Code(s): E78.01 - Familial hypercholesterolemia Plan: Patient on atorvastatin. Repeat lipid panel has been ordered. Will call with results. (2) Hypertension: Code(s): I10 - Essential (primary) hypertension Plan: Blood pressure is in range. Continue medications at same dosage. (3) Cholelithiasis: Code(s): K80.20 - Calculus of gallbladder without cholecystitis without obstruction Qualifiers: Cholelithiasis location: gallbladder Cholecystitis presence: without cholecystitis Biliary obstruction: without biliary obstruction Qualified Code(s): K80.20 - Calculus of gallbladder without cholecystitis without obstruction Plan: . Orders: Orders Lipid Panel Today E78.01 - Familial hypercholesterolemia Coding Level of Care Code Est Pt Level 4 (49479) Diagnoses Familial hypercholesterolemia E78.01 Hypertension I10 Calculus of gallbladder without cholecystitis without obstruction K80.20 Cholelithiasis location: gallbladder Cholecystitis presence: without cholecystitis Biliary obstruction: without biliary obstruction
[2023-11-03 10:06] VITALS: BP 180/100; PULSE 85; O2SAT 97; BMI 33.0
[2023-11-03 10:17] VITALS: BP 160/80
[2023-11-03 13:22] VITALS: BP 111/69
== END 2023-11-03 10:59 | disposition home or self-care (01) ==
PROVIDERS: PCP Internal Medicine; Visit Provider Internal Medicine
DX: E78.01 Familial hypercholesterolemia (principal); I10 Essential (primary) hypertension; K80.20 Calculus of gallbladder without cholecystitis without obstruction
CPT/HCPCS: 99214

== ENCOUNTER 2023-11-04 08:02 | Outpatient (REF) | payer MEDICARE, OTHER, SELFPAY ==
[2023-11-04 11:05] LABS: Cholesterol 177 mg/dL (<200); HDL Cholesterol 50 mg/dL (>40); LDL Cholesterol Calculated 107 mg/dL (<100); Triglycerides 103 mg/dL (<150)
== END 2023-11-04 08:03 | disposition home or self-care (01) ==
LOC: HO.HMGCLDS 08:02
PROVIDERS: PCP Internal Medicine; Visit Provider Internal Medicine
DX: E78.01 Familial hypercholesterolemia (principal)
CPT/HCPCS: 36415; 80061

== ENCOUNTER 2024-03-29 06:27 | Day surgery (SDC) | payer MEDICARE, OTHER, SELFPAY ==
[2024-03-27 12:48] VITALS: BMI 33.0
--- NOTE | 2024-03-28 10:21 | HO.ANESPROP2 ---
Documented by User: Vibha Torres NP 03/28/24 10:21 HPI - Anesthesia Eval Consult details Narrative: 74yo F for Colonoscopy PMFSH Active Problems Active Problems: All Active Problems Familial hypercholesterolemia (Acute) Anxiety (Acute) S/P bilateral oophorectomy (Acute) Cholelithiasis (Acute) Hypertension (Acute) Past Medical History Medical History Familial hypercholesterolemia Anxiety Hypertension Cholelithiasis Family History Family History Mother Lung cancer Father Stroke Sister Breast cancer Surgical History Surgical History H/O colonoscopy S/P bilateral oophorectomy Social History Social History Household Members: Spouse Housing: House Do you presently have visiting nurse or other home services: No Alcohol intake: current Alcohol intake frequency: does not drink Patient Tobacco Use Status: Never used Tobacco e-Cigarette/Vaping Use: Never Used Second Hand Smoke Exposure: No Have you been hit, kicked, punched, or otherwise hurt by someone within the past year? If so, by whom?: No Advance Directives: No Advance Directives Information Provided: Yes Recently lost weight without trying: No Nutrition Risks: No Nutritional Risk service: No Current occupational status: retired Cognitive needs: No Hearing needs: No Vision needs: Yes Meds Allergies Allergy/AdvReac Type Severity Reaction Status Date / Time No Known Allergies Allergy Verified 11/03/23 10:06 Exam Height,Weight and Vital Signs: Height 5 ft 2 in Weight 81.76 kg Assessment and Plan Assessment Anesthesia Assessment: Chart Reviewed Documented by User: Magnolia Carroll MD 03/29/24 07:44 PMFSH Past Medical History Medical History Familial hypercholesterolemia Anxiety Hypertension Cholelithiasis Family History Family History Mother Lung cancer Father Stroke Sister Breast cancer Family history of problems with anesthesia: No Surgical History Surgical History H/O colonoscopy S/P bilateral oophorectomy History of Problems with Anesthesia: No Social History Social History Household Members: Spouse Housing: House Do you presently have visiting nurse or other home services: No Alcohol intake: current Alcohol intake frequency: does not drink Patient Tobacco Use Status: Never used Tobacco e-Cigarette/Vaping Use: Never Used Second Hand Smoke Exposure: No Have you been hit, kicked, punched, or otherwise hurt by someone within the past year? If so, by whom?: No Advance Directives: No Advance Directives Information Provided: Yes Recently lost weight without trying: No Nutrition Risks: No Nutritional Risk service: No Current occupational status: retired Cognitive needs: No Hearing needs: No Vision needs: Yes Meds Allergies Allergy/AdvReac Type Severity Reaction Status Date / Time No Known Allergies Allergy Verified 11/03/23 10:06 Exam Airway Mallampati Class: II TM Dist: >3cm Neck ROM: Full Heart: rrr Lungs: cta Assessment and Plan Assessment Anesthesia Assessment: Anesthesia Plan Discussed Final Anesthetic Review Family History of Problems with Anesthesia: No History of Problems with Anesthesia: No NPO: Yes ASA Class: II (white coat syndrome) Final Preanesthetic Review: No Changes in Pt Med Stat, Meds/Allgs Chart Reviewed, Consent Obtained/Reviewed and Anes Risks/Benef Reviewed Patient Risk: Low Procedure Risk: Low Anesthetic Plan Anesthetic Plan: MAC: Disposition: Standard PACU
--- NOTE | 2024-03-29 06:39 | MHC.SHP ---
Pre-Procedural Eval Section A - 24 Hr Update-Section A only Date of Service: 03/29/24 Section B - Complete if H&P > 30 days Chief Complaint: screening Relevant Family History (Specify if Yes): No Relevant Social History: None Present Medications: see Short Stay Collaborative assessment Medical History: Significant History (Familial hypercholesterolemia Anxiety Hypertension Cholelithiasis) History of Previous Operations: Relevant previous surgery/procedure and date(s) ( H/O colonoscopy S/P bilateral oophorectomy) Allergies: Allergies Allergy/AdvReac Type Severity Reaction Status Date / Time No Known Allergies Allergy Verified 11/03/23 10:06 Review of Systems Sugical H&P ROS: Negative: Constitution, Cardiovascular, Respiratory, Neurological, Psychiatric, Hem-Onc, Allergic/Immunologic, Gastrointestinal, Genitourinary, Musculoskeletal, Integumentary, Endocrine and Eyes/Ears/Nose/Throat Exam Surgical H&P Exam: Normal: HEENT, Normal: Heart, Normal: Lungs, Normal: Extremities, Normal: Abdomen, Normal: Skin and Normal: Neurological Plan Diagnosis/Plan: Unchanged I have reviewed the history and physical and performed a pertinent physical examination on my patient. No changes have occurred unless specified. Time Spent With Patient Time: Total time managing care of this patient today ____ minutes.
[2024-03-29 06:49] VITALS: BP 220/88; PULSE 78; RESP 20; TEMP 36.9; O2SAT 97; BMI 33.2
[2024-03-29 06:50] VITALS: BP 205/85
[2024-03-29 07:01] VITALS: BP 190/84
[2024-03-29] MEDS: Lactated Ringers 1,000 ML 100 ML IVCONT (07:05)
--- NOTE | 2024-03-29 07:40 | HO.OPN-COLON ---
Colonoscopy Operative Note Operative Note Date of Service: 03/29/24 Narrative: Operative Information Procedure Description: Colonoscopy Indication: screening Anesthesia: MAC COLONOSCOPY Instrument: Olympus variable stiffness pediatric scope 190L Colonoscopy Monitoring: Vital signs and clinical assessment, continuous EKG monitoring, Pulse oximetry, Carbon Dioxide monitoring and blood pressure monitoring were done throughout the procedure. Colon withdrawal time was 11 minutes. Procedure: The patient was placed in the left lateral decubitis position and pre-procedure medications were administered. After a digital rectal examination of the ano-rectum, the video colonoscope was inserted into the rectum and advanced through the colon to the cecum/TI. The colonoscope was slowly withdrawn in a retrograde panoramic fashion and the colon mucosa was carefully examined including a retroflexed view of the rectum. Findings and interventions are described below. Procedure Difficulty: moderate Findings: Terminal Ileum-normal Cecum:normal Right sided retroflexion- normal Ascending Colon: scattered diverticula Transverse Colon -normal Descending Colon: tattoo noted in distal descending colon, no polyps seen Sigmoid Colon: severe diverticulosis with luminal narrowing Rectum: Retroflexion with small internal hemorrhoids seen, grade I Anorectum - normal Intervention: none Colon preparation: Manning Bowel Preparation Scale Right colon; 2 Transverse colon: 3 Left colon; 3 (0 = Unprepared colon segment with mucosa not seen due to solid stool that cannot be cleared. 1 = Portion of mucosa of the colon segment seen, but other areas of the colon segment not well seen due to staining, residual stool and/or opaque liquid. 2 = Minor amount of residual staining, small fragments of stool and/or opaque liquid, but mucosa of colon segment seen well. 3 = Entire mucosa of colon segment seen well with no residual staining, small fragments of stool or opaque liquid) Impression and Post Procedure Diagnosis: diverticulosis internal hemorrhoids Plan: High fiber diet leaflet Avoid straining at stool, epsom salts and sitz bath, anusol supps or cream Repeat Colonoscopy in 5 years due to FH of CRC in mother if health allows and patient wishes or earlier if clinically indicated, otherwise this would be her last screening Above findings were reviewed with the patient and relevant handouts were provided if indicated.
[2024-03-29 08:09] VITALS: BP 132/90; PULSE 62; RESP 16; TEMP 36.1; O2SAT 93
[2024-03-29 08:24] VITALS: BP 155/73; PULSE 69; RESP 16; O2SAT 97
== END 2024-03-29 08:55 | disposition home or self-care (01) ==
PROVIDERS: PCP Internal Medicine; Visit Provider Internal Medicine Gastroenterology
PROC: 0DJD8ZZ Inspection of Lower Intestinal Tract, Via Natural or Artificial Opening Endoscopic (ICD-10-PCS; CPT 45378; principal; 2024-03-29 07:30)
DX: Z12.11 Encounter for screening for malignant neoplasm of colon (principal); K57.30 Diverticulosis of large intestine without perforation or abscess without bleeding; K64.0 First degree hemorrhoids; Z80.0 Family history of malignant neoplasm of digestive organs; I10 Essential (primary) hypertension; E78.00 Pure hypercholesterolemia, unspecified; F41.9 Anxiety disorder, unspecified; Z79.02 Long term (current) use of antithrombotics/antiplatelets; Z79.899 Other long term (current) drug therapy
CPT/HCPCS: G0105; J2250; J2704

== ENCOUNTER → 2024-03-29 06:27 | Outpatient (BNV) | payer MEDICARE, OTHER, SELFPAY | PROVIDERS: PCP Internal Medicine; Visit Provider Internal Medicine Gastroenterology | DX: Z12.11 Encounter for screening for malignant neoplasm of colon (principal); K57.90 Diverticulosis of intestine, part unspecified, without perforation or abscess without bleeding; K64.0 First degree hemorrhoids; Z80.0 Family history of malignant neoplasm of digestive organs | CPT/HCPCS: G0105 ==

== ENCOUNTER 2024-06-17 11:53 | Inpatient (IN) | payer MEDICARE, OTHER, SELFPAY ==
--- NOTE | ~2024-06-17 | US_ITS ---
EXAMINATION: US ABDOMEN LIMITED CLINICAL INFORMATION: Evaluate for acute cholecystitis, CBD evaluation. COMPARISON: None available. TECHNIQUE: Real-time imaging of the gallbladder and common bile duct. Limited visualization due to bowel gas and body habitus. FINDINGS: GALLBLADDER: Multiple gallstones. No gallbladder wall thickening. COMMON BILE DUCT: Imaged portion of common bile duct measures 0.4 cm in diameter. US/US abdomen limited IMPRESSION: Cholelithiasis. No gallbladder wall thickening or pericholecystic fluid. Imaged portion of common bile duct measures 0.4 cm in diameter. This study was presented today to June 18, 2024 for interpretation. Stat results provided at this time as requested by referring provider. Electronically signed by: Charissa Anderson MD 06/18/2024 11:25 AM DEE D[facility]
--- NOTE | ~2024-06-17 | FL_ITS ---
EXAMINATION: FLUOROSCOPY GUIDANCE FOR NEEDLE PLACEMENT CLINICAL INFORMATION: ERCP. COMPARISON: CT abdomen and pelvis 06/17/2024. TECHNIQUE: Spot films and fluoroscopy provided to Dr. Feliciano during ERCP. FINDINGS: An endoscope is seen with a wire in the common bile duct and contrast in nondilated biliary tree. Some filling defects seen, I suspect they are likely air bubbles. Please correlate with Dr. Feliciano's report. FLUOROSCOPY TIME: 82.3 seconds. DOSE AREA PRODUCT: 21.75 mGy. FL/FL guidance in OR IMPRESSION: Fluoroscopy and spot films provided during ERCP. Electronically signed by: Akbar Palacios MD 06/25/2024 03:31 PM [facility] [place]
--- NOTE | ~2024-06-17 | CT_ITS ---
EXAMINATION: CT ABDOMEN PELVIS WITH IV CONTRAST CLINICAL INFORMATION: midline AND pain, N/V, urin freq COMPARISON: November 02, 2022 TECHNIQUE: Multidetector volumetric imaging was performed from the superior aspect of the liver through the pubic symphysis 50 mL Omnipaque 350 injected Sagittal and coronal reformatted images were obtained on the technologist's workstation. This CT examination was performed using dose optimization techniques as appropriate, variously including the following: *Automated exposure control *Adjustment of mA and/or kV according to patient size (this includes techniques or standardized protocols for targeted exams where dose is matched to indication/reason for exam; i.e. extremities or head) *Use of iterative reconstruction technique DLP: 817 mGy-cm FINDINGS: LOWER THORAX: Included lung bases are clear. HEPATOBILIARY: No focal hepatic lesions. No biliary ductal dilatation. GALLBLADDER: There are multiple gallstones. SPLEEN: Spleen is normal in size. PANCREAS: There is peripancreatic fluid and fat stranding, this is surrounding the entire pancreas head body and tail, most likely acute pancreatitis. No CT evidence of focal pancreatic necrosis, no thromboses or other complication, adjacent mild wall thickening and low attenuation of the duodenal wall probably sequela of secondary reactive duodenitis. STOMACH AND GASTROINTESTINAL TRACT: Stomach is grossly unremarkable. There is heavy sigmoid diverticulosis without CT evidence of acute diverticulitis. No CT evidence of appendicitis. ADRENALS: No adrenal nodules. KIDNEYS/URETERS: Kidneys maintain normal homogeneous texture, no kidney stone, mild bilateral fullness of renal pelvises without evidence of obstruction. URINARY BLADDER: Partially decompressed. PELVIC VISCERA: Unremarkable PERITONEUM: No free air or fluid. LYMPH NODES: No lymphadenopathy. VASCULAR:Mild aortic calcifications, no aneurysm. BONES, ABDOMINAL WALL AND SOFT TISSUES: Age-appropriate changes of the spine and skeletal system, no destructive osteolytic or osteosclerotic bone lesion found CT/CT abdomen pelvis w IV con IMPRESSION: 1. Peripancreatic fluid and fat stranding surrounding the entire pancreas head body and tail, most likely acute pancreatitis. No CT evidence of focal pancreatic necrosis, no thromboses or other complication, adjacent mild wall thickening and low attenuation of the duodenal wall probably sequela of secondary duodenitis. Please correlate with patient's clinical presentation, laboratory data amylase lipase. 2. Cholelithiasis. 3. Heavy sigmoid diverticulosis without CT evidence of acute diverticulitis. Electronically signed by: Chantelle Luu MD 06/17/2024 03:32 PM DEE DEE RP
[2024-06-17 12:07] VITALS: BP 160/60; PULSE 80; RESP 18; TEMP 36.8; O2SAT 98; BMI 28.3
--- NOTE | 2024-06-17 12:07 | ED.ABDPAIN ---
HPI - Abdominal Pain General Chief Complaint: Abdominal Pain Stated Complaint: ABD PAIN,NAUSEA PER EMS Time Seen by Provider: 06/17/24 12:07 Source: patient and EMS Mode of arrival: EMS Limitations: no limitations History of Present Illness ED Provider: Keysha Garcia NP HPI narrative: patient is a 74-year-old female with past medical history of anxiety, hypertension, cholelithiasis, biliary pancreatitis, bilateral oophorectomy who presents emergency department for evaluation. She reports that she might have overdid it last night reporting that she went to a function where she consumed a few pieces of pizza had a glass of wine. She had some mild epigastric pain last night. However she awoke today with mid epigastric abdominal pain as well as lower mid/suprapubic pain. Reports that after consuming breakfast this morning, and egg sandwich, the epigastric pain be came more constant and intense described as a sharp pain. She has had multi pull episodes of nonbloody bilious emesis. She reports a history of troubles with her gallbladder in the past. There was some discussion about having the gallbladder removed, however after having a visit with Gastroenterology and screening for colonoscopy, she was advised that the gallbladder did not need to be removed if she was not having any symptoms. She had not had any issues with the gallbladder and about 1.5 years. She does also admit to urinary frequency as well as back pain. She denies having hematuria, pelvic pain, abnormal vaginal discharge or bleeding. No associated fevers, chills, chest pain diarrhea, constipation, hematochezia, melena. Related Data Home Medications ?Medication ?Instructions ?Recorded ?Confirmed propranolol 10 mg tablet 10 mg PO DAILY PRN anxiety 06/17/24 06/17/24 Previous Rx's ?Medication ?Instructions ?Recorded atorvastatin 10 mg tablet 10 mg PO BEDTIME #90 tabs 12/21/23 lisinopril 10 mg tablet 10 mg PO DAILY #90 tabs 12/21/23 Allergies Allergy/AdvReac Type Severity Reaction Status Date / Time No Known Allergies Allergy Verified 06/17/24 12:10 Review of Systems Review of Systems Yes all other systems are reviewed and are negative PMFSH Past Medical History Attestation statement: The following information was validated with the patient. Source: old records reviewed Medical History Familial hypercholesterolemia Anxiety Hypertension Cholelithiasis Surgical History H/O colonoscopy S/P bilateral oophorectomy Family History Family History Mother Lung cancer Father Stroke Sister Breast cancer Social History Social History Household Members: Spouse Housing: House Do you presently have visiting nurse or other home services: No Alcohol intake: current Alcohol intake frequency: does not drink Patient Tobacco Use Status: Never used Tobacco Smoked in Last 30 Days: No e-Cigarette/Vaping Use: Never Used Second Hand Smoke Exposure: No Use of substances other than those prescribed or required for medical reasons: No Advance Directives: No Advance Directives Information Provided: Yes Do you have a plan to hurt others: No Plan Nutrition Risks: No Nutritional Risk service: No Current occupational status: retired Cognitive needs: No Hearing needs: No Vision needs: Yes Physical Exam ED Vital Signs: Vital Signs - 24 hr 06/17/24 12:07 06/17/24 12:44 06/17/24 16:17 Temperature 98.2 F 98.2 F 98.1 F Pulse Rate 80 75 84 Respiratory Rate 18 18 16 Blood Pressure 160/60 H 143/62 H 195/74 H Pulse Oximetry 98 95 97 Oxygen Delivery Method Room Air Room Air Room Air BMI result Body Mass Index 28.3 Appearance: Alert.?Oriented to person, place and time. No acute distress.?Normal affect.?? Neck: Normal inspection.? Neck supple.?? CVS: Heart sounds normal. Normal heart rate and rhythm.? Pulses normal.?? Respiratory: No respiratory distress.? Lung sounds clear to auscultation bilaterally?? Abdomen: Soft With epigastric and suprapubic tenderness upon palpation. No rebound tenderness at McBurney's point. Negative psoas sign. Negative Rovsing sign. Negative Gonzalez sign. No CVAT. Normoactive bowel sounds. No pulsatile mass.?? Skin: Skin warm and dry.? Normal skin color.? Extremities: No lower extremity edema.? Neuro: Moves all extremities spontaneously. Sensation intact bilaterally. Ambulates with normal steady gait. Course Reevaluation(s) Reevaluation #1: Serum labs revealing leukocytosis with left shift, notably elevated LFTs with normal T bilirubin, AST 398, ALT 354, lipase >3,000. concern at this time for possible cholecystitis, cholelithiasis, versus pancreatitis covering with ceftriaxone, pending CT of the abdomen and pelvis. Not meeting SIRS criteria at this time, not consistent with sepsis. No lactic acidosis. Time: 14:47 Reevaluation #2: CT abdomen and pelvis reveals peripancreatic fluid and fat stranding consistent with acute pancreatitis, secondary to duodenitis. She does admit to improvement and nausea and vomiting after receiving Zofran. Urinalysis is without evidence of UTI. Viral serologies are negative. Planning for admission to medicine service, will consult hospitalist. Patient and were updated on findings, advised her plan of care, will keep NPO, she may require additional MRCP/ERCP Medical Decision Making Medical Decision Making MDM Narrative: patient is a 74-year-old female with past medical history of anxiety, hypertension, cholelithiasis, biliary pancreatitis, bilateral oophorectomy Who presents for evaluation of epigastricabdominal pain with nausea and vomiting, suprapubic pain and urinary frequency as per HPI. She appears uncomfortable and is actively vomiting at the time my evaluation, she is not Tachycardic, tachypneic, hypoxic nor febrile. She has a history of biliary pancreatitis, previously advised to see a general surgeon about possible cholecystectomy but as per HPI elected not to have this done as she was not having any further issues. Symptoms may be secondary to acute cholecystitis, choledocholithiasis, she is afebrile without jaundice to suggest acute cholangitis. No overt left upper quadrant tenderness to suggest pancreatitis, admits only 1 glass of wine and denies frequent usage that would further support this. No hematemesis to suggest PUD /upper GI bleed. No rebound tenderness at McBurney's point, rigidity, guarding to suggest acute appendicitis. No tenderness of the left lower quadrant nor associated nausea, vomiting, diarrhea, constipation, hematochezia or melena to suggest diverticulitis or GI bleed. No appreciable hernia to suggest strangulation/incarceration. Lower suspicion for bowel obstruction. No distention or rigidity to suggest GI perforation. endorsing urinary frequency, possibly UTI/pyelonephritis, renal colic, hydronephrosis. Differential Diagnosis Differential Diagnoses: The differential diagnosis associated with the presentation includes (See narrative above On below) No associated chest pain shortness of breath or URI symptoms to suggest pneumonia, no clinical evidence of DVT or personal history of VTE/malignancy to suggest pulmonary embolism. No high-risk past medical history to suggest myocardial infarction and is without chest pain, less likely AAA, aortic dissection. Admission/Observation Consideration of admission/observation: Escalation of care including admission/observation considered (See narrative above ) Consult Healthcare Provider Management of the patient was discussed with: Hospitalist Lab Data MDM Lab Attestation statement: I reviewed the patient's lab results. 06/17/24 12:32 06/17/24 13:59 Labs: Lab Results 06/17/24 06/17/24 Range/Units 12:32 13:59 WBC 15.1 H (4.8-10.8) X10*3/uL RBC 5.00 (4.20-5.50) X10*6/uL Hgb 15.3 (12.0-16.0) g/dl Hct 45.2 (37.0-47.0) % MCV 90.4 (80.0-98.0) fL MCH 30.6 (27.0-33.0) pg MCHC 33.8 (31.0-35.0) g/dl RDW 12.3 (11.0-16.0) % Plt Count 290 (160-400) X10*3/uL MPV 10.8 (9.4-12.3) fL Immature Gran % (Auto) 0.2 (0.0-0.4) % Neut % (Auto) 77.1 H (45-73) % Lymph % (Auto) 16.9 L (20-40) % Hardy % (Auto) 4.7 (2-11) % Eos % (Auto) 0.5 (0-4) % Baso % (Auto) 0.6 (0-2) % Lymph # (Auto) 2.5 (1.2-4.9) X10*3/uL Hardy # (Auto) 0.7 (0.1-1.2) X10*3/uL Eos # (Auto) 0.1 (0.0-0.4) X10*3/uL Baso # (Auto) 0.1 (0.0-0.2) X10*3/uL Abs Immat Gran (auto) 0.03 (0.00-0.03) X10*3/uL Absolute Neuts (auto) 11.6 H (2.0-8.3) x10*3/uL Absolute Nucleated RBC 0.000 (0.0-0.012) X10*3/uL Nucleated RBC % (auto) 0.0 (0.0-0.2) /100WBC Sodium 144 (135-145) mmol/L Potassium 3.8 (3.3-5.1) mmol/L Chloride 111 H (96-108) mmol/L Carbon Dioxide 26 (22-29) mmol/L Anion Gap 11 L (12-20) BUN 24 H (9-16) mg/dL Creatinine 1.02 (0.5-1.4) mg/dL Estim Creat Clear Calc 42.0 Estimated GFR 53 Random Glucose 145 H (60-115) mg/dL Lactic Acid 1.6 (0.5-2.0) mmol/L Calcium 8.9 D (8.4-10.2) mg/dL Magnesium 1.9 (1.6-2.6) mg/dL Total Bilirubin 0.9 (0.0-1.0) mg/dL AST 398 H (5-31) U/L ALT 354 H (0-31) U/L Alkaline Phosphatase 89 (39-117) U/L Total Protein 6.3 L (6.5-8.0) g/dL Albumin 3.9 (3.5-5.0) g/dL Triglycerides 96 (<150) mg/dL Lipase > 3000 H (8-78) U/L Urine Color Yellow Urine Appearance Clear Urine pH 5.0 (5.0-9.0) Ur Specific [place] 1.015 (1.005-1.025) Urine Protein Negative (Neg-Trace) mg/dL Urine Glucose (UA) Negative (Negative) mg/dL Urine Ketones Negative (Negative) mg/dL Urine Blood Negative (Negative) Urine Nitrite Negative (Negative) Ur Leukocyte Esterase Trace H (Negative) Urine RBC 0-2 (0-2) /HPF Urine WBC 0-5 (0-5) /HPF Ur Squamous Epith Cells 0-2 (0-2) /HPF Urine Bacteria None Seen (None Seen) Hyaline Casts 0-2 (0-2) /LPF Influenza Type A (PCR) NEGATIVE (Negative) Influenza Type B (PCR) NEGATIVE (Negative) RSV RNA Qual (PCR) NEGATIVE (Negative) SARS-CoV-2 RNA (RT-PCR) NEGATIVE (Negative) Radiology Impression Discussion of test interpretation with radiology: I have reviewed the radiologist's reading. Radiologist Impression: CT/CT abdomen pelvis w IV con IMPRESSION: 1. Peripancreatic fluid and fat stranding surrounding the entire pancreas head body and tail, most likely acute pancreatitis. No CT evidence of focal pancreatic necrosis, no thromboses or other complication, adjacent mild wall thickening and low attenuation of the duodenal wall probably sequela of secondary duodenitis. Please correlate with patient's clinical presentation, laboratory data amylase lipase. 2. Cholelithiasis. 3. Heavy sigmoid diverticulosis without CT evidence of acute diverticulitis. Independent Historian Clinical information obtained from an independent historian. History obtained from or confirmed by: Spouse and EMS External Record Review External record reviewed: Inpatient record and Outpatient record November of 2022 - admission for acute pancreatitis, cholelithiasis, adnexal/ ovarian mass (s/p bilateral oophorectomy) Prescription Management I considered prescription management with: Pain Medication Medications Administered Generic Name Dose Route Start Last Admin Trade Name Freq PRN Reason Stop Dose Admin Enoxaparin Sodium 40 mg 06/17/24 18:00 06/17/24 17:50 Enoxaparin Sodium 40 Mg/0.4 Ml Syringe SUBCUT 40 mg Q24H ALMITA Administration Lactated Ringer's 1,000 mls @ 100 mls/hr 06/17/24 17:15 06/17/24 18:20 Lr IVCONT 100 mls/hr .Q10H ALMITA Administration Discontinued Medications Generic Name Dose Route Start Last Admin Trade Name Freq PRN Reason Stop Dose Admin Ceftriaxone Sodium 1 gm 06/17/24 14:44 06/17/24 15:51 Ceftriaxone Sodium 1 Gm Vial IVPUSH 06/17/24 14:45 1 gm ONCE ONE Administration Sodium Chloride 1,000 mls @ 999 mls/hr 06/17/24 12:30 06/17/24 16:07 Ns IV 06/17/24 13:30 Infused .Q1H1M ALMITA Infusion Iohexol 100 ml 06/17/24 14:48 06/17/24 14:49 Iohexol 350 Mg/Ml 100 Ml Infus..Btl IV 06/17/24 14:49 85 ml ONCE ONE Administration Labetalol HCl 5 mg 06/17/24 17:29 06/17/24 17:50 Labetalol Hcl 100 Mg/20 Ml Vial IVPUSH 06/17/24 17:30 5 mg ONCE ONE Administration Ondansetron HCl 4 mg 06/17/24 12:24 06/17/24 12:33 Ondansetron Hcl 4 Mg/2 Ml Vial IVPUSH 06/17/24 12:25 4 mg ONCE ONE Administration Pantoprazole Sodium 40 mg 06/17/24 12:24 06/17/24 12:33 Pantoprazole Sodium 40 Mg/10 Ml Vial IVPUSH 06/17/24 12:25 40 mg ONCE ONE Administration Discharge Plan Discharge Clinical Impression: Acute pancreatitis Patient Disposition: Admitted As Inpatient
[2024-06-17] MEDS: Pantoprazole Sodium 40 MG/10 ML VIAL IVPUSH (12:33)
[2024-06-17] MEDS: ondansetron HCL 4 MG/2 ML VIAL IVPUSH (12:33)
[2024-06-17] MEDS: 0.9 % Sodium Chloride 1,000 ML 999 ML IV (12:33)
[2024-06-17 12:39] LABS: MANUAL DIFF FLAG NO
[2024-06-17 12:44] VITALS: BP 143/62; PULSE 75; RESP 18; TEMP 36.8; O2SAT 95
[2024-06-17 12:48] LABS: Basophils Absolute Auto 0.1 X10*3/uL (0.0-0.2); Basophils Percent Auto 0.6 % (0-2); Eosinophils Absolute Auto 0.1 X10*3/uL (0.0-0.4); Eosinophils Percent Auto 0.5 % (0-4); Hematocrit 45.2 % (37.0-47.0); Hemoglobin 15.3 g/dl (12.0-16.0); Imm Gran Abs Auto 0.03 X10*3/uL (0.00-0.03); Imm Gran Pct Auto 0.2 % (0.0-0.4); Lymphocytes Absolute Auto 2.5 X10*3/uL (1.2-4.9); Lymphocytes Percent Auto 16.9 % (20-40); Mean Corpuscular HGB Conc 33.8 g/dl (31.0-35.0); Mean Corpuscular Hemoglobin 30.6 pg (27.0-33.0); Mean Corpuscular Volume 90.4 fL (80.0-98.0); Mean Platelet Volume 10.8 fL (9.4-12.3); Monocytes Absolute Auto 0.7 X10*3/uL (0.1-1.2); Monocytes Percent Auto 4.7 % (2-11); Neutrophils Absolute Auto 11.6 x10*3/uL (2.0-8.3); Neutrophils Percent Auto 77.1 % (45-73); Platelet Count 290 X10*3/uL (160-400); Red Cell Distribution Width 12.3 % (11.0-16.0); White Blood Count 15.1 X10*3/uL (4.8-10.8)
[2024-06-17 12:56] LABS: Lactic Acid 1.6 mmol/L (0.5-2.0)
[2024-06-17 13:18] LABS: Influenza A PCR NEGATIVE (Negative); Influenza B PCR NEGATIVE (Negative); Resp Syncy Virus RNA Qual PCR NEGATIVE (Negative); SARS COV2 PCR INHOUSE NEGATIVE (Negative)
[2024-06-17 14:10] LABS: Appearance Urine Clear; Color Urine Yellow; Glucose Urine UA Negative (Negative); Leukocyte Esterase Urine Trace (Negative); Nitrite Urine Negative (Negative); Specific Gravity - Urine 1.015 (1.005-1.025); UMIC TRIGGER UACC YES; Urine Blood Negative (Negative); Urine Ketones Negative (Negative); Urine Protein Negative (Neg-Trace)
[2024-06-17 14:24] LABS: Bacteria Urine None Seen (None Seen); Hyaline Casts Urine 0-2 /LPF (0-2); RBC Urine 0-2 /HPF (0-2); Squamous Epithelial Cell Urine 0-2 /HPF (0-2); WBC Urine 0-5 /HPF (0-5)
[2024-06-17 14:32] LABS: Alanine Aminotransferase 354 U/L (0-31); Albumin Level 3.9 g/dL (3.5-5.0); Alkaline Phosphatase 89 U/L (39-117); Anion Gap 11 (12-20); Aspartate Amino Transferase 398 U/L (5-31); Bilirubin Total 0.9 mg/dL (0.0-1.0); Blood Urea Nitrogen 24 mg/dL (9-16); Calcium 8.9 mg/dL (8.4-10.2); Carbon Dioxide 26 mmol/L (22-29); Chloride 111 mmol/L (96-108); Estimated Glomerular Filt Rate 53; Glucose Random 145 mg/dL (60-115); Lipase > 3000 U/L (8-78); Magnesium 1.9 mg/dL (1.6-2.6); Potassium 3.8 mmol/L (3.3-5.1); Sodium 144 mmol/L (135-145); Total Protein 6.3 g/dL (6.5-8.0)
[2024-06-17] MEDS: iohexoL 350 MG/ML 100 ML INFUS..BTL IV (14:49)
[2024-06-17] MEDS: cefTRIAXone sodium 1 GM VIAL IVPUSH (15:51)
[2024-06-17 16:17] VITALS: BP 195/74; PULSE 84; RESP 16; TEMP 36.7; O2SAT 97
--- NOTE | 2024-06-17 16:36 | P.HPHOSP_ITS ---
History of Present Illness Date of Service: 06/17/24 Attending physician on admission: Eva Sidhu Chief Complaint: Abd pain, N/V Pt is a 74-year-old female with a PMH significant for?HTN, HLD, cholelithiasis, pancreatitis, and bilateral oophorectomy who presents to the ED with?epigastric abdominal pain radiating to back with nausea and vomiting since this morning. Patient reports last night it a ?greasy? meal including pizza and a glass of wine. Had a brief ?gallbladder attack? last night that lasted for less than 15 minutes with sharp and shooting RUQ pain. Symptoms then subsided. This morning after breakfast patient experienced significant increase in symptoms, including intense, constant epigastric pain radiating to back and multiple episodes of nausea and vomiting. No fever, chills. Denies chest pain/pressure, palpitations. No shortness a breath or difficulty breathing. Of note, patient had similar episode in 11/20/2022 when she was admitted to the hospital for acute pancreatitis possibly secondary to a passed gallstone. She followed up with GI and decided against cholecystectomy at this time as her gallbladder was not bothering her. Patient also followed up for incidental findings of adnexal mass and had bilateral oophorectomy where mass was determined to be benign. In the ED pt was hypertensive up to 195/74 vitals otherwise stable and WNL. Labs were significant for leukocytosis of 15.1, AST 398, ALT 354, lipase >3000. No significant electrolyte abnormalities. Stable H&H P. Renal function baseline. UA negative. Negative for flu, RSV, and COVID. CT?abdomen and pelvis found peripancreatic fluid and fat stranding surrounding the entire pancreatitis had, body, and tail consistent with acute pancreatitis and secondary likely duodenitis. Pt was treated with ondansetron, Protonix, IVF, and ceftriaxone. Pt will be admitted to the hospital for treatment and further evaluation of acute pancreatitis likely secondary to gallstone. Review of Systems 2 Review of Systems: Negative except for that which is stated in [facility] Medical History Familial hypercholesterolemia Anxiety Hypertension Cholelithiasis Family History Mother Lung cancer Father Stroke Sister Breast cancer Surgical History H/O colonoscopy S/P bilateral oophorectomy Social History Household Members: Spouse Housing: House Do you presently have visiting nurse or other home services: No Alcohol intake: current Alcohol intake frequency: does not drink Patient Tobacco Use Status: Never used Tobacco e-Cigarette/Vaping Use: Never Used Second Hand Smoke Exposure: No Advance Directives: No Advance Directives Information Provided: Yes Do you have a plan to hurt others: No Plan service: No Current occupational status: retired Cognitive needs: No Hearing needs: No Vision needs: Yes Meds Allergies Allergy/AdvReac Type Severity Reaction Status Date / Time No Known Allergies Allergy Verified 06/17/24 12:10 Home Medications ?Medication ?Instructions ?Recorded ?Confirmed ?Last Taken ?Type propranolol 10 mg tablet 10 mg PO DAILY PRN anxiety 06/17/24 06/17/24 Unknown History Physical Exam 2 Vital Signs and Narrative: Vital Signs: Last Vital Signs Temp 98.1 F 06/17/24 16:17 Pulse 84 06/17/24 16:17 Resp 16 06/17/24 16:17 BP 195/74 H 06/17/24 16:17 Pulse Ox 97 06/17/24 16:17 O2 Del Method Room Air 06/17/24 16:17 BMI result Body Mass Index 28.3 Constitutional: Alert, in no acute distress. Mental Status: Oriented to person, place and time. Eyes: Pupils are equal, round, and reactive to light. Ear, Nose, and Throat: Oropharynx clear, mucous membranes moist. Ears and nose without deformities. Trachea midline. Respiratory: Clear to auscultation bilaterally. No wheezing, rales, or rhonchi. Cardiovascular: S1, S2 regular. No murmurs, rubs, or gallops. Gastrointestinal: Abdomen soft, non-distended, mild epigastric and LUQ tenderness. No RUQ tenderness. Negative Gonzalez's. Normal bowel sounds. Neurologic: Cranial nerves II-XII are grossly intact bilaterally. No focal neurological deficits. Moves all extremities spontaneously. Skin: Warm, dry. Extremities: No edema. Psychiatric: Normal mood and affect. Results Labs 06/17/24 12:32 06/17/24 13:59 Labs: Laboratory Results - last 24 hr 12/15/24 12/15/24 12:32 13:59 MCV 90.4 MCH 30.6 MCHC 33.8 RDW 12.3 Plt Count 290 MPV 10.8 Immature Gran % (Auto) 0.2 Neut % (Auto) 77.1 H Lymph % (Auto) 16.9 L [place] % (Auto) 4.7 Eos % (Auto) 0.5 Baso % (Auto) 0.6 Lymph # (Auto) 2.5 [place] # (Auto) 0.7 Eos # (Auto) 0.1 Baso # (Auto) 0.1 Abs Immat Gran (auto) 0.03 Absolute Neuts (auto) 11.6 H Absolute Nucleated RBC 0.000 Nucleated RBC % (auto) 0.0 Anion Gap 11 L Estim Creat Clear Calc 42.0 Estimated GFR 53 Random Glucose 145 H Lactic Acid 1.6 Calcium 8.9 D Magnesium 1.9 Total Bilirubin 0.9 AST 398 H ALT 354 H Alkaline Phosphatase 89 Total Protein 6.3 L Albumin 3.9 Lipase > 3000 H Urine Color Yellow Urine Appearance Clear Urine pH 5.0 Ur Specific [place] 1.015 Urine Protein Negative Urine Glucose (UA) Negative Urine Ketones Negative Urine Blood Negative Urine Nitrite Negative Ur Leukocyte Esterase Trace H Urine RBC 0-2 Urine WBC 0-5 Ur Squamous Epith Cells 0-2 Urine Bacteria None Seen Hyaline Casts 0-2 Influenza Type A (PCR) NEGATIVE Influenza Type B (PCR) NEGATIVE RSV RNA Qual (PCR) NEGATIVE SARS-CoV-2 RNA (RT-PCR) NEGATIVE Imaging Radiologist's Impressions: Impressions Abdomen/Pelvis CT 06/17/24 14:40 IMPRESSION: 1. Peripancreatic fluid and fat stranding surrounding the entire pancreas head body and tail, most likely acute pancreatitis. No CT evidence of focal pancreatic necrosis, no thromboses or other complication, adjacent mild wall thickening and low attenuation of the duodenal wall probably sequela of secondary duodenitis. Please correlate with patient's clinical presentation, laboratory data amylase lipase. 2. Cholelithiasis. 3. Heavy sigmoid diverticulosis without CT evidence of acute diverticulitis. Electronically signed by: Chantelle Luu MD 06/17/2024 03:32 PM [facility] [place] Assessment and Plan (1) Acute pancreatitis: Status: Acute Plan Pt is a 74-year-old female with a PMH significant for?HTN, HLD, cholelithiasis, pancreatitis, and bilateral oophorectomy who presents to the ED with?epigastric abdominal pain radiating to back with nausea and vomiting since this morning. Pt will be admitted to the hospital for treatment and further evaluation of acute pancreatitis likely secondary to gallstone. Acute pancreatitis Pt with epigastric abdominal pain radiating to back, N/V, lipase >3000, CT w/peripancreatic fluid surrounding entire pancrease Likely secondary to gallstone Will treat with bowel rest, IVF, analgesics, and antiemetics Will get US of RUQ Hold off on MRCP for now General surgery consult Advance diet as tolerated Leukocytosis Likely reactionary, not due to sepsis No indication for acute bacterial infection No indication to continue antibiotic treatment at this time Hypertensive urgency BP as high as 195/74 in the ED Will give labetalol 5 mg IV Continue lisinopril, propranolol Monitor BP closely HLD Continue statin Full Code Attending:?Dr. Sidhu DVT Prophylaxis: Lovenox Pt will require a hospitalization of at least two nights for treatment of?acute pancreatitis with bowel rest, IV analgesics, IVF, IV antiemetics, and specialist consultation with General surgery. Quality Stroke Does the patient have a stroke diagnosis?: No VTE Prior VTE?: No VTE Risk Level:: Medical - moderate - high VTE Device Contraindication: Treatment Not Indicated VTE Drug Contraindication: N/A - Med Ordered
--- NOTE | 2024-06-17 17:34 | PHA.MEDREC ---
Addendum entered by Raz Foreman RP 06/17/24 18:50: MED REC CHECKED BY [facility] Original Note: Pharmacy Consult ? Medication Reconciliation Pharmacy has completed the medication reconciliation. Spoke to pt to confirm meds.
[2024-06-17 17:39] LABS: Triglycerides 96 mg/dL (<150)
[2024-06-17 17:50] VITALS: BP 189/74; PULSE 78
[2024-06-17] MEDS: Enoxaparin Sodium 40 MG/0.4 ML SYRINGE SUBCUT (17:50)
[2024-06-17] MEDS: Labetalol HCL 100 MG/20 ML VIAL IVPUSH (17:50)
[2024-06-17] MEDS: Lactated Ringers 1,000 ML 100 ML IVCONT (18:20)
[2024-06-17 19:06] VITALS: BP 169/71; PULSE 71; RESP 18; TEMP 36.7; O2SAT 98
[2024-06-17] MEDS: oxyCODONE HCl Immed Release 5 MG TABLET PO (19:26)
[2024-06-17] MEDS: Morphine Sulfate 4 MG/ML CARTRIDGE IVPUSH (20:10)
--- NOTE | 2024-06-17 20:13 | PC.NURSE ---
Took over care from SHERRELL Aranda, Medicated per sep for pain management. Call powell at the bedside, pt resting in bed.
[2024-06-17 20:49] VITALS: BP 173/69; PULSE 75; RESP 18; TEMP 36.6; O2SAT 95
--- NOTE | 2024-06-17 21:26 | PC.NURSE ---
pt reports improvement in pain management.
--- NOTE | 2024-06-17 23:49 | MHC.EDTECH ---
Lucy called for staff. Patient was wondering if pain meds were available and if she was getting a room tonight. Spoke to RN
[2024-06-18] VITALS (9 sets, daily range): BP systolic 151–191; BP diastolic 68–83; PULSE 83–104; RESP 16–22; TEMP 36.1–37.2; O2SAT 92–100
[2024-06-18] MEDS: Morphine Sulfate 4 MG/ML CARTRIDGE IVPUSH ×2 (01:08→21:08)
--- NOTE | 2024-06-18 01:11 | PC.NURSE ---
medicated per mar.
[2024-06-18] MEDS: oxyCODONE HCl Immed Release 5 MG TABLET PO ×2 (04:18→11:52)
[2024-06-18] MEDS: Lactated Ringers 1,000 ML 100 ML IVCONT ×2 (04:20→14:21)
[2024-06-18 05:36] LABS: Albumin Level 3.7 g/dL (3.5-5.0); Anion Gap 13 (12-20); Aspartate Amino Transferase 160 U/L (5-31); Bilirubin Total 0.6 mg/dL (0.0-1.0); Blood Urea Nitrogen 28 mg/dL (9-16); Calcium 8.8 mg/dL (8.4-10.2); Carbon Dioxide 23 mmol/L (22-29); Chloride 111 mmol/L (96-108); Creatinine Clr Calc Pharmacy 45.1; Estimated Glomerular Filt Rate 57; Glucose Random 152 mg/dL (60-115); Sodium 143 mmol/L (135-145); Total Protein 5.8 g/dL (6.5-8.0)
[2024-06-18 05:40] LABS: Alanine Aminotransferase 282 U/L (0-31); Alkaline Phosphatase 77 U/L (39-117)
--- NOTE | 2024-06-18 06:12 | PM.IMHP ---
History of Present Illness Date of Service: 06/18/24 Attending physician on admission: Araceli Villalpando Chief Complaint: Shortness on breath Review of Systems Review of Systems: All 12 systems were reviewed and normal except as noted in HPI. COUNTS INCLUDE 234 BEDS AT THE [facility] Medical History Familial hypercholesterolemia Anxiety Hypertension Cholelithiasis Family History Mother Lung cancer Father Stroke Sister Breast cancer Surgical History H/O colonoscopy S/P bilateral oophorectomy Social History Household Members: Spouse Housing: House Do you presently have visiting nurse or other home services: No Alcohol intake: current Alcohol intake frequency: does not drink Patient Tobacco Use Status: Never used Tobacco Smoked in Last 30 Days: No e-Cigarette/Vaping Use: Never Used Second Hand Smoke Exposure: No Use of substances other than those prescribed or required for medical reasons: No Advance Directives: No Advance Directives Information Provided: Yes Do you have a plan to hurt others: No Plan Nutrition Risks: No Nutritional Risk service: No Current occupational status: retired Cognitive needs: No Hearing needs: No Vision needs: Yes Meds Allergies Allergy/AdvReac Type Severity Reaction Status Date / Time No Known Allergies Allergy Verified 06/17/24 12:10 Active Medications: Current Medications Acetaminophen (Acetaminophen 325 Mg Tablet) 650 mg PO Q6H PRN PRN Reason: Pain, Mild (Pain Scale 1-3), fever or headache Calcium Carbonate (Calcium Carbonate 750 Mg Tab.Chew) 750 mg PO Q4H PRN PRN Reason: Heartburn Enoxaparin Sodium (Enoxaparin Sodium 40 Mg/0.4 Ml Syringe) 40 mg SUBCUT Q24H ALMITA Last Admin: 06/17/24 17:50 Dose: 40 mg Lactated Ringer's (Lr) 1,000 mls @ 100 mls/hr IVCONT .Q10H ALMITA Last Admin: 06/18/24 04:20 Dose: 100 mls/hr Magnesium Hydroxide (Milk Of Magnesia 30 Ml Oral.Susp) 30 ml PO DAILY PRN PRN Reason: Constipation Melatonin (Melatonin 3 Mg Tablet) 6 mg PO BEDTIME PRN PRN Reason: Insomnia Morphine Sulfate (Morphine Sulfate 4 Mg/Ml Cartridge) 4 mg IVPUSH Q4H PRN; Protocol PRN Reason: Pain, Severe (Pain Scale 7-10) Last Admin: 06/18/24 01:08 Dose: 4 mg Ondansetron HCl (Ondansetron Hcl 4 Mg/2 Ml Vial) 4 mg IVPUSH Q8H PRN PRN Reason: Nausea and Vomiting Oxycodone HCl (Oxycodone Hcl Immed Release 5 Mg Tablet) 5 mg PO Q6H PRN PRN Reason: Pain, Moderate(Pain Scale 4-6) Last Admin: 06/18/24 04:18 Dose: 5 mg Sodium Chloride (0.9 % Sodium Chloride Flush 3 Ml Syringe) 3 ml IVFLUSH QSMDFT [facility] Last Admin: 06/18/24 04:35 Dose: Not Given Home Medications ?Medication ?Instructions ?Recorded ?Confirmed ?Last Taken ?Type propranolol 10 mg tablet 10 mg PO DAILY PRN anxiety 06/17/24 06/17/24 Unknown History Physical Exam Vital Signs and Narrative: Vital Signs: Last Vital Signs Temp 98.3 F 06/18/24 03:10 Pulse 86 06/18/24 05:52 Resp 22 H 06/18/24 05:52 BP 191/71 H 06/18/24 05:52 Pulse Ox 100 06/18/24 05:52 O2 Del Method Room Air 06/18/24 05:52 BMI result Body Mass Index 28.3 Constitutional - Awake and Alert, No apparent distress. Constantly coughing HEENT - PER, EOMI Heart - S1S2, RRR, No edema Respiratory - Normal lung expansion, Normal respiratory effort, No respiratory distress. Tachypnea. Positive rhonchi. No wheezing. No crackles. Abdomen - NT / ND; +BS; No rebound or guarding Extremities - no calf tenderness bilaterally, no swelling Musculoskeletal - Normal inspection, normal ROM Skin - Warm/Dry Neurological - Alert & oriented x3. No focal weakness grossly noted. Normal speech. Psychological - Appropriate affect Results Labs 06/17/24 12:32 06/18/24 05:08 Labs: Laboratory Results - last 24 hr 06/17/24 06/17/24 06/18/24 12:32 13:59 05:08 MCV 90.4 MCH 30.6 MCHC 33.8 RDW 12.3 Plt Count 290 MPV 10.8 Immature Gran % (Auto) 0.2 Neut % (Auto) 77.1 H Lymph % (Auto) 16.9 L [place] % (Auto) 4.7 Eos % (Auto) 0.5 Baso % (Auto) 0.6 Lymph # (Auto) 2.5 [place] # (Auto) 0.7 Eos # (Auto) 0.1 Baso # (Auto) 0.1 Abs Immat Gran (auto) 0.03 Absolute Neuts (auto) 11.6 H Absolute Nucleated RBC 0.000 Nucleated RBC % (auto) 0.0 Anion Gap 11 L 13 Estim Creat Clear Calc 42.0 45.1 Estimated GFR 53 57 Random Glucose 145 H 152 H Lactic Acid 1.6 Calcium 8.9 D 8.8 Magnesium 1.9 Total Bilirubin 0.9 0.6 AST 398 H 160 H ALT 354 H 282 H Alkaline Phosphatase 89 77 Total Protein 6.3 L 5.8 L Albumin 3.9 3.7 Triglycerides 96 Lipase > 3000 H Urine Color Yellow Urine Appearance Clear Urine pH 5.0 Ur Specific [place] 1.015 Urine Protein Negative Urine Glucose (UA) Negative Urine Ketones Negative Urine Blood Negative Urine Nitrite Negative Ur Leukocyte Esterase Trace H Urine RBC 0-2 Urine WBC 0-5 Ur Squamous Epith Cells 0-2 Urine Bacteria None Seen Hyaline Casts 0-2 Influenza Type A (PCR) NEGATIVE Influenza Type B (PCR) NEGATIVE RSV RNA Qual (PCR) NEGATIVE SARS-CoV-2 RNA (RT-PCR) NEGATIVE Imaging Radiologist's Impressions: Impressions Abdomen/Pelvis CT 06/17/24 14:40 IMPRESSION: 1. Peripancreatic fluid and fat stranding surrounding the entire pancreas head body and tail, most likely acute pancreatitis. No CT evidence of focal pancreatic necrosis, no thromboses or other complication, adjacent mild wall thickening and low attenuation of the duodenal wall probably sequela of secondary duodenitis. Please correlate with patient's clinical presentation, laboratory data amylase lipase. 2. Cholelithiasis. 3. Heavy sigmoid diverticulosis without CT evidence of acute diverticulitis. Electronically signed by: Chantelle Luu MD 06/17/2024 03:32 PM [facility] [place] Quality Stroke Does the patient have a stroke diagnosis?: No VTE Prior VTE?: No VTE Risk Level:: Medical - moderate - high VTE Device Contraindication: Treatment Not Indicated VTE Drug Contraindication: N/A - Med Ordered
[2024-06-18] MEDS: amLODIPine Besylate 2.5 MG TABLET 7.5 MG PO (06:35)
--- NOTE | 2024-06-18 07:20 | PM.CNGS ---
History of Present Illness Consult details Consult date: 06/18/24 Narrative: Pt. is a 74 yo female,who presents with history of prior episode of gallstone pancreatitis and of biliary colic presents here with a similar episode of epigastric upper quadrant pain of increasing severity. Workup including CT scan and laboratory values are consistent with gallstone pancreatitis. Patient states her symptoms are modestly improving. On admission lipase was greater than 3000 yesterday. Today is 790. There was also a moderate leukocytosis. She has noted fatty food intolerance. She has never been jaundiced before. Otherwise tolerating a diet and has regular bowel habits. Chart was reviewed and patient evaluated. 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 This was performed laparoscopically and [place]. [facility] Past Medical History Medical History Familial hypercholesterolemia Anxiety Hypertension Cholelithiasis Family History Family History Mother Lung cancer Father Stroke Sister Breast cancer Surgical History Surgical History H/O colonoscopy S/P bilateral oophorectomy Social History Social History Household Members: Spouse Housing: House Do you presently have visiting nurse or other home services: No Alcohol intake: current Alcohol intake frequency: does not drink Patient Tobacco Use Status: Never used Tobacco Smoked in Last 30 Days: No e-Cigarette/Vaping Use: Never Used Second Hand Smoke Exposure: No Use of substances other than those prescribed or required for medical reasons: No Have you been hit, kicked, punched, or otherwise hurt by someone within the past year? If so, by whom?: No Do you feel safe in your current relationship?: Yes Is there a partner from a previous relationship who is making you feel unsafe now?: No Are you made to feel afraid or neglected: No Advance Directives: No Advance Directives Information Provided: Yes Do you have a plan to hurt others: No Plan Recently lost weight without trying: No Eating poorly because of decreased appetite: No Nutrition Risks: No Nutritional Risk Patient : No : No Poor oral hygiene: No service: No Current occupational status: retired Cognitive needs: No Hearing needs: No Vision needs: Yes Meds Allergies Allergy/AdvReac Type Severity Reaction Status Date / Time No Known Allergies Allergy Verified 06/17/24 12:10 Active Medications: Current Medications Acetaminophen (Acetaminophen 325 Mg Tablet) 650 mg PO Q6H PRN PRN Reason: Pain, Mild (Pain Scale 1-3), fever or headache Amlodipine Besylate (Amlodipine Besylate 2.5 Mg Tablet) 7.5 mg PO DAILY [facility]; Protocol Last Admin: 06/18/24 06:35 Dose: 7.5 mg Calcium Carbonate (Calcium Carbonate 750 Mg Tab.Chew) 750 mg PO Q4H PRN PRN Reason: Heartburn Enoxaparin Sodium (Enoxaparin Sodium 40 Mg/0.4 Ml Syringe) 40 mg SUBCUT Q24H [facility] Last Admin: 06/17/24 17:50 Dose: 40 mg Lactated Ringer's (Lr) 1,000 mls @ 100 mls/hr IVCONT .Q10H [facility] Last Admin: 06/18/24 04:20 Dose: 100 mls/hr Influenza Virus Vaccine (Flu Vacc Po3227-69(6mos Up)/Pf 0.5 Ml Syringe) 0.5 ml IM .ONCE ONE Stop: 06/18/24 09:01 Magnesium Hydroxide (Milk Of Magnesia 30 Ml Oral.Susp) 30 ml PO DAILY PRN PRN Reason: Constipation Melatonin (Melatonin 3 Mg Tablet) 6 mg PO BEDTIME PRN PRN Reason: Insomnia Morphine Sulfate (Morphine Sulfate 4 Mg/Ml Cartridge) 4 mg IVPUSH Q4H PRN; Protocol PRN Reason: Pain, Severe (Pain Scale 7-10) Last Admin: 06/18/24 01:08 Dose: 4 mg Ondansetron HCl (Ondansetron Hcl 4 Mg/2 Ml Vial) 4 mg IVPUSH Q8H PRN PRN Reason: Nausea and Vomiting Oxycodone HCl (Oxycodone Hcl Immed Release 5 Mg Tablet) 5 mg PO Q6H PRN PRN Reason: Pain, Moderate(Pain Scale 4-6) Last Admin: 06/18/24 04:18 Dose: 5 mg Sodium Chloride (0.9 % Sodium Chloride Flush 3 Ml Syringe) 3 ml IVFLUSH QSHIFT [facility] Last Admin: 06/18/24 04:35 Dose: Not Given Home Medications ?Medication ?Instructions ?Recorded ?Confirmed ?Last Taken ?Type propranolol 10 mg tablet 10 mg PO DAILY PRN anxiety 06/17/24 06/17/24 Unknown History Physical Exam Vital Signs: Vital Signs: Last Vital Signs Temp 98.3 F 06/18/24 03:10 Pulse 88 06/18/24 06:22 Resp 18 06/18/24 06:22 BP 177/75 H 06/18/24 06:35 Pulse Ox 95 06/18/24 06:22 O2 Del Method Room Air 06/18/24 06:22 BMI result Body Mass Index 28.3 Eyes: Other: Anicteric Chest: Other: Chest sounds bilaterally, HS 1 in 2 GI: Other: Abdomen moderately corpulent. Mild to moderate upper abdominal tenderness but without any evidence of guarding, rebound, or rigidity Results Labs 06/17/24 12:32 06/18/24 05:08 Labs: Abnormal lab results 06/17/24 06/17/24 06/18/24 Range/Units 12:32 13:59 05:08 WBC 15.1 H (4.8-10.8) X10*3/uL Neut % (Auto) 77.1 H (45-73) % Lymph % (Auto) 16.9 L (20-40) % Absolute Neuts (auto) 11.6 H (2.0-8.3) x10*3/uL Chloride 111 H 111 H (96-108) mmol/L Anion Gap 11 L (12-20) BUN 24 H 28 H (9-16) mg/dL Random Glucose 145 H 152 H (60-115) mg/dL AST 398 H 160 H (5-31) U/L ALT 354 H 282 H (0-31) U/L Total Protein 6.3 L 5.8 L (6.5-8.0) g/dL Lipase > 3000 H (8-78) U/L Ur Leukocyte Esterase Trace H (Negative) Short CBC 06/17/24 Range/Units 12:32 WBC 15.1 H (4.8-10.8) X10*3/uL Hgb 15.3 (12.0-16.0) g/dl Hct 45.2 (37.0-47.0) % Plt Count 290 (160-400) X10*3/uL BMP 06/17/24 06/18/24 13:59 05:08 Sodium 144 143 Potassium 3.8 4.0 Chloride 111 H 111 H Carbon Dioxide 26 23 BUN 24 H 28 H Creatinine 1.02 0.95 Calcium 8.9 D 8.8 Liver Function 06/17/24 06/18/24 Range/Units 13:59 05:08 Total Bilirubin 0.9 0.6 (0.0-1.0) mg/dL AST 398 H 160 H (5-31) U/L ALT 354 H 282 H (0-31) U/L Alkaline Phosphatase 89 77 (39-117) U/L Albumin 3.9 3.7 (3.5-5.0) g/dL Urine 06/17/24 Range/Units 13:59 Urine Color Yellow Urine Appearance Clear Urine pH 5.0 (5.0-9.0) Ur Specific Sayre 1.015 (1.005-1.025) Urine Protein Negative (Neg-Trace) mg/dL Urine Glucose (UA) Negative (Negative) mg/dL All other labs normal. Assessment and Plan (1) Acute gallstone pancreatitis: Status: Acute (2) Cholelithiasis: Qualifiers: Cholelithiasis location: gallbladder Cholecystitis presence: without cholecystitis Biliary obstruction: without biliary obstruction Qualified Code(s): K80.20 - Calculus of gallbladder without cholecystitis without obstruction Status: Acute Plan Presumed diagnosis of gallstone pancreatitis. Clinically and labs improving. Patient will tentatively be scheduled for laparoscopic cholecystectomy and cholangiogram perhaps tomorrow of the next day based on her clinical picture and labs. Risks, benefits, alternatives of laparoscopic possible open cholecystectomy and possible cholangiogram reviewed with the patient and included but not limited to bleeding, infection, numbness, pain, scarring, bowel or bile duct injury or leak and the patient wishes to proceed. All questions answered. Consent signed. Procedures Date of Service Date of Service: 06/18/24
[2024-06-18 07:43] LABS: Lipase 792 U/L (8-78)
--- NOTE | 2024-06-18 08:09 | PC.NURSE ---
Pt axox3. has been evaled by dr Garcia. Is aware of plan for NPO and watching lipase levels. Up to BR w/ minimal assist. Skin PWD. Taking sips of water w/o diff. Awaits room assignment on floor.
[2024-06-18] MEDS: lisinopriL 20 MG TABLET PO (09:07)
[2024-06-18] MEDS: ondansetron HCL 4 MG/2 ML VIAL IVPUSH ×2 (10:19→21:09)
--- NOTE | 2024-06-18 11:56 | MHC.CM.PN ---
PT LIVES WITH[facility] PREVIOUS SERVIES HAS OWN RIDE HOME DC PLAN HOME NO SERVIES
--- NOTE | 2024-06-18 14:33 | P.PNIM_ITS ---
Subjective Subjective Date of Service: 06/18/24 Interval History: seen and evaluated feels better lipase trending down started PO diet Review of Systems Review of Systems: Yes all other systems are reviewed and are negative Physical Exam 2 Vital Signs: Vital Signs: Last Vital Signs Temp 97.9 F 06/18/24 10:18 Pulse 86 06/18/24 08:38 Resp 16 06/18/24 10:18 BP 159/74 H 06/18/24 10:18 Pulse Ox 93 06/18/24 10:18 O2 Del Method Room Air 06/18/24 10:18 BMI result Body Mass Index 28.3 Const: Other: Constitutional : Awake, interactive, not in distress Neck : Normal inspection, Supple Cardiovascular : RRR, no JVP, no lower extremity edema Respiratory : good bilateral air entry, no crackles, wheezes or rhonchi Gastrointestinal: soft, lax, Normal bowel sounds, mild epigastric tenderness Skin : Warm, Dry Neurological : Alert & oriented x3, No focal deficit Objective Data Active Medications Acetaminophen (Acetaminophen 325 Mg Tablet) 650 mg PO Q6H PRN PRN Reason: Pain, Mild (Pain Scale 1-3), fever or headache Amlodipine Besylate (Amlodipine Besylate 2.5 Mg Tablet) 7.5 mg PO DAILY [facility]; Protocol Last Admin: 06/18/24 06:35 Dose: 7.5 mg Documented By: MACO Atorvastatin Calcium (Atorvastatin Calcium 10 Mg Tablet) 10 mg PO BEDTIME [facility] Calcium Carbonate (Calcium Carbonate 750 Mg Tab.Chew) 750 mg PO Q4H PRN PRN Reason: Heartburn Enoxaparin Sodium (Enoxaparin Sodium 40 Mg/0.4 Ml Syringe) 40 mg SUBCUT Q24H [facility] Last Admin: 06/17/24 17:50 Dose: 40 mg Documented By: ELOY Lactated Ringer's (Lr) 1,000 mls @ 100 mls/hr IVCONT .Q10H [facility] Last Admin: 06/18/24 14:21 Dose: 100 mls/hr Documented By: SHASTA Lisinopril (Lisinopril 20 Mg Tablet) 20 mg PO DAILY [facility]; Protocol Last Admin: 06/18/24 09:07 Dose: 20 mg Documented By: LEANDRO Magnesium Hydroxide (Milk Of Magnesia 30 Ml Oral.Susp) 30 ml PO DAILY PRN PRN Reason: Constipation Melatonin (Melatonin 3 Mg Tablet) 6 mg PO BEDTIME PRN PRN Reason: Insomnia Morphine Sulfate (Morphine Sulfate 4 Mg/Ml Cartridge) 4 mg IVPUSH Q4H PRN; Protocol PRN Reason: Pain, Severe (Pain Scale 7-10) Last Admin: 06/18/24 01:08 Dose: 4 mg Documented By: MACO Ondansetron HCl (Ondansetron Hcl 4 Mg/2 Ml Vial) 4 mg IVPUSH Q8H PRN PRN Reason: Nausea and Vomiting Last Admin: 06/18/24 10:19 Dose: 4 mg Documented By: SHASTA Oxycodone HCl (Oxycodone Hcl Immed Release 5 Mg Tablet) 5 mg PO Q6H PRN PRN Reason: Pain, Moderate(Pain Scale 4-6) Last Admin: 06/18/24 11:52 Dose: 5 mg Documented By: JUVENTINO Propranolol HCl (Propranolol Hcl 10 Mg Tablet) 10 mg PO DAILY PRN; Protocol PRN Reason: anxiety Sodium Chloride (0.9 % Sodium Chloride Flush 3 Ml Syringe) [facility] Last Admin: 06/18/24 08:10 Dose: Not Given Documented By: LEANDRO Non-Admin Reason: Med Not Available Labs 06/17/24 12:32 06/18/24 05:08 Labs: Laboratory Results - last 24 hr 06/17/24 06/18/24 13:59 05:08 Anion Gap 11 L 13 Estim Creat Clear Calc 42.0 45.1 Estimated GFR 53 57 Random Glucose 145 H 152 H Calcium 8.9 D 8.8 Magnesium 1.9 Total Bilirubin 0.9 0.6 AST 398 H 160 H ALT 354 H 282 H Alkaline Phosphatase 89 77 Total Protein 6.3 L 5.8 L Albumin 3.9 3.7 Triglycerides 96 Lipase > 3000 H 792 H Assessment and Plan (1) Acute gallstone pancreatitis: Status: Acute (2) Acute pancreatitis: Status: Acute Plan Pt is a 74-year-old female with a PMH significant for?HTN, HLD, cholelithiasis, pancreatitis, and bilateral oophorectomy who presents to the ED with?epigastric abdominal pain radiating to back with nausea and vomiting since this morning. Pt will be admitted to the hospital for treatment and further evaluation of acute pancreatitis likely secondary to gallstone. Acute pancreatitis Improving CT w/peripancreatic fluid surrounding entire pancrease Likely secondary to passing gallstone IVF, analgesics, and antiemetics start clears NPO post midnight US of RUQ common bile duct measures 0.4 cm in diameter, . No gallbladder wall thickening or pericholecystic fluid. Surgery to do CCY tomorrow if possible Advance diet as tolerated Leukocytosis Likely reactionary, not due to sepsis No indication to continue antibiotic treatment at this time Hypertensive urgency BP as high as 195/74 in the ED Will give labetalol 5 mg IV Continue lisinopril, propranolol Monitor BP closely HLD Continue statin Full Code Attending:?Dr. Sidhu DVT Prophylaxis: Lovenox Pt will require a hospitalization overnight for treatment of?acute pancreatitis with bowel rest, IV analgesics, IVF, IV antiemetics, and specialist consultation with General surgery. Quality Stroke Does the patient have a stroke diagnosis?: No VTE Prior VTE?: No VTE Risk Level:: Medical - moderate - high VTE Device Contraindication: Treatment Not Indicated VTE Drug Contraindication: N/A - Med Ordered
[2024-06-18] MEDS: Enoxaparin Sodium 40 MG/0.4 ML SYRINGE SUBCUT (18:15)
[2024-06-18] MEDS: Atorvastatin Calcium 10 MG TABLET PO (20:35)
[2024-06-18] MEDS: 0.9 % Sodium Chloride Flush 3 ML SYRINGE IVFLUSH (21:09)
[2024-06-19] VITALS (12 sets, daily range): BP systolic 128–189; BP diastolic 57–91; PULSE 88–100; RESP 16–20; TEMP 36.1–38.1; O2SAT 90–95
[2024-06-19] MEDS: Morphine Sulfate 4 MG/ML CARTRIDGE IVPUSH (01:34)
[2024-06-19] MEDS: Lactated Ringers 1,000 ML 100 ML IVCONT ×2 (02:38→16:44)
[2024-06-19 06:18] LABS: Lipase 373 U/L (8-78)
[2024-06-19] MEDS: lisinopriL 20 MG TABLET PO (07:42)
[2024-06-19] MEDS: amLODIPine Besylate 2.5 MG TABLET 7.5 MG PO (07:42)
--- NOTE | 2024-06-19 10:27 | PM.PNGS ---
Subjective Subjective Date of Service: 06/19/24 Interval history: Abdominal symptoms moderately improved. Lipase dramatically improved. Physical Exam Vital Signs: Vital Signs: Last Vital Signs Temp 97.8 F 06/19/24 07:31 Pulse 99 06/19/24 07:31 Resp 18 06/19/24 07:31 BP 172/77 H 06/19/24 07:42 Pulse Ox 90 L 06/19/24 07:31 O2 Del Method Room Air 06/19/24 07:31 BMI result Body Mass Index 28.3 GI: Other: Abdomen soft. Mild upper abdominal tenderness. No evidence of any guarding, rebound, rigidity Objective Data Active Medications Acetaminophen (Acetaminophen 325 Mg Tablet) 650 mg PO Q6H PRN PRN Reason: Pain, Mild (Pain Scale 1-3), fever or headache Amlodipine Besylate (Amlodipine Besylate 2.5 Mg Tablet) 7.5 mg PO DAILY [facility]; Protocol Last Admin: 06/19/24 07:42 Dose: 7.5 mg Documented By: LUZ Atorvastatin Calcium (Atorvastatin Calcium 10 Mg Tablet) 10 mg PO BEDTIME [facility] Last Admin: 06/18/24 20:35 Dose: 10 mg Documented By: GEORGE Calcium Carbonate (Calcium Carbonate 750 Mg Tab.Chew) 750 mg PO Q4H PRN PRN Reason: Heartburn Enoxaparin Sodium (Enoxaparin Sodium 40 Mg/0.4 Ml Syringe) 40 mg SUBCUT Q24H [facility] Last Admin: 06/18/24 18:15 Dose: 40 mg Documented By: SHASTA Lactated Ringer's (Lr) 1,000 mls @ 100 mls/hr IVCONT .Q10H [facility] Last Admin: 06/19/24 02:38 Dose: 100 mls/hr Documented By: GEORGE Lisinopril (Lisinopril 20 Mg Tablet) 20 mg PO DAILY [facility]; Protocol Last Admin: 06/19/24 07:42 Dose: 20 mg Documented By: LUZ Magnesium Hydroxide (Milk Of Magnesia 30 Ml Oral.Susp) 30 ml PO DAILY PRN PRN Reason: Constipation Melatonin (Melatonin 3 Mg Tablet) 6 mg PO BEDTIME PRN PRN Reason: Insomnia Morphine Sulfate (Morphine Sulfate 4 Mg/Ml Cartridge) 4 mg IVPUSH Q4H PRN; Protocol PRN Reason: Pain, Severe (Pain Scale 7-10) Last Admin: 06/19/24 01:34 Dose: 4 mg Documented By: GEORGE Ondansetron HCl (Ondansetron Hcl 4 Mg/2 Ml Vial) 4 mg IVPUSH Q8H PRN PRN Reason: Nausea and Vomiting Last Admin: 06/18/24 21:09 Dose: 4 mg Documented By: GEORGE Oxycodone HCl (Oxycodone Hcl Immed Release 5 Mg Tablet) 5 mg PO Q6H PRN PRN Reason: Pain, Moderate(Pain Scale 4-6) Last Admin: 06/18/24 11:52 Dose: 5 mg Documented By: JUVENTINO Propranolol HCl (Propranolol Hcl 10 Mg Tablet) 10 mg PO DAILY PRN; Protocol PRN Reason: anxiety Sodium Chloride (0.9 % Sodium Chloride Flush 3 Ml Syringe) 3 ml IVFLUSH QSHIFT [facility] Last Admin: 06/19/24 07:00 Dose: Not Given Documented By: LUZ Non-Admin Reason: IV Running Labs 06/17/24 12:32 06/18/24 05:08 Labs: Laboratory Results - last 24 hr 06/19/24 05:39 Lipase 373 H Microbiology Microbiology Results: Microbiology 06/17/24 15:37 Blood Culture - Preliminary Blood - Venous No growth after 24 hours. 06/17/24 15:37 Blood Culture - Preliminary Blood - Venous No growth after 24 hours. Procedures Date of Service Date of Service: 06/19/24 Progress Note: A&P Assessment and plan (1) Acute gallstone pancreatitis: Status: Acute Plan For laparoscopic possible open cholecystectomy and possible cholangiogram today. Time Spent With Patient Time: Total time managing care of this patient today ____ minutes. Quality Stroke Does the patient have a stroke diagnosis?: No VTE Prior VTE?: No VTE Risk Level:: Medical - moderate - high VTE Device Contraindication: Treatment Not Indicated VTE Drug Contraindication: N/A - Med Ordered
--- NOTE | 2024-06-19 12:22 | HO.PM.IMPN ---
Subjective Subjective Date of Service: 06/19/24 Interval History: Being followed for gallstone pancreatitis, complaining of abdominal pain, gas, no bowel movement last several days, taking shallow breaths due to pain with deep breathing, denies fever, no chills is NPO for cholecystectomy scheduled for today Review of Systems All other system reviewed and are negative. Physical Exam Vital Signs: Vital Signs: Last Vital Signs Temp 100.6 F H 06/19/24 11:14 Pulse 93 06/19/24 11:14 Resp 16 06/19/24 11:14 BP 158/72 H 06/19/24 11:14 Pulse Ox 92 06/19/24 11:14 O2 Del Method Room Air 06/19/24 11:14 BMI result Body Mass Index 28.3 Const: Other: General resting comfortably in no acute distress. Moist mucous membranes Anicteric sclera Neck no JVD. CVS regular rate rhythm, Respiratory lungs clear to auscultation, no respiratory distress, no rhonchi. Gastrointestinal abdomen soft, mild epigastric discomfort, bowel sounds audible, no guarding , no rigidity. Extremities no edema. Neuro non focal Skin no rash Psych appropriate affect Objective Data Active Medications Acetaminophen (Acetaminophen 325 Mg Tablet) 650 mg PO Q6H PRN PRN Reason: Pain, Mild (Pain Scale 1-3), fever or headache Amlodipine Besylate (Amlodipine Besylate 2.5 Mg Tablet) 7.5 mg PO DAILY [facility]; Protocol Last Admin: 06/19/24 07:42 Dose: 7.5 mg Documented By: LUZ Atorvastatin Calcium (Atorvastatin Calcium 10 Mg Tablet) 10 mg PO BEDTIME [facility] Last Admin: 06/18/24 20:35 Dose: 10 mg Documented By: GEORGE Calcium Carbonate (Calcium Carbonate 750 Mg Tab.Chew) 750 mg PO Q4H PRN PRN Reason: Heartburn Enoxaparin Sodium (Enoxaparin Sodium 40 Mg/0.4 Ml Syringe) 40 mg SUBCUT Q24H [facility] Last Admin: 06/18/24 18:15 Dose: 40 mg Documented By: SHASTA Lactated Ringer's (Lr) 1,000 mls @ 100 mls/hr IVCONT .Q10H [facility] Last Admin: 06/19/24 11:10 Dose: Not Given Documented By: LUZ Non-Admin Reason: Off Unit: Surgery Lisinopril (Lisinopril 20 Mg Tablet) 20 mg PO DAILY [facility]; Protocol Last Admin: 06/19/24 07:42 Dose: 20 mg Documented By: LUZ Magnesium Hydroxide (Milk Of Magnesia 30 Ml Oral.Susp) 30 ml PO DAILY PRN PRN Reason: Constipation Melatonin (Melatonin 3 Mg Tablet) 6 mg PO BEDTIME PRN PRN Reason: Insomnia Morphine Sulfate (Morphine Sulfate 4 Mg/Ml Cartridge) 4 mg IVPUSH Q4H PRN; Protocol PRN Reason: Pain, Severe (Pain Scale 7-10) Last Admin: 06/19/24 01:34 Dose: 4 mg Documented By: GEORGE Ondansetron HCl (Ondansetron Hcl 4 Mg/2 Ml Vial) 4 mg IVPUSH Q8H PRN PRN Reason: Nausea and Vomiting Last Admin: 06/18/24 21:09 Dose: 4 mg Documented By: GEORGE Oxycodone HCl (Oxycodone Hcl Immed Release 5 Mg Tablet) 5 mg PO Q6H PRN PRN Reason: Pain, Moderate(Pain Scale 4-6) Last Admin: 06/18/24 11:52 Dose: 5 mg Documented By: JUVENTINO Propranolol HCl (Propranolol Hcl 10 Mg Tablet) 10 mg PO DAILY PRN; Protocol PRN Reason: anxiety Sodium Chloride (0.9 % Sodium Chloride Flush 3 Ml Syringe) [facility] Last Admin: 06/19/24 07:00 Dose: Not Given Documented By: LUZ Non-Admin Reason: IV Running Labs 06/17/24 12:32 06/18/24 05:08 Labs: Laboratory Results - last 24 hr 06/19/24 05:39 Lipase 373 H Microbiology Microbiology Results: Microbiology 06/17/24 15:37 Blood Culture - Preliminary Blood - Venous No growth after 24 hours. 06/17/24 15:37 Blood Culture - Preliminary Blood - Venous No growth after 24 hours. Assessment and Plan (1) Acute gallstone pancreatitis: Status: Acute Plan 74-year-old female with a PMH significant for?HTN, HLD, cholelithiasis, pancreatitis, and bilateral oophorectomy who presents to the ED with?epigastric abdominal pain radiating to back with nausea and vomiting since this morning. Pt will be admitted to the hospital for treatment and further evaluation of acute pancreatitis likely secondary to gallstone. Acute gallstone pancreatitis Persistent mild abdominal pain US of RUQ common bile duct measures 0.4 cm in diameter, . No gallbladder wall thickening or pericholecystic fluid. CT w/peripancreatic fluid surrounding entire pancrease, Continue IVF, analgesics, and antiemetics NPO scheduled for cholecystectomyt Add stool softeners/IS Out of bed to chair as tolerated Leukocytosis Likely reactionary, not due to sepsis, follow CBC Hypertensive urgency BP as high as 195/74 in the ED Continue lisinopril, and amlodipine On propranolol as needed for anxiety Monitor BP closely HLD Continue statin Full Code DVT Prophylaxis: Lovenox Pt will require a hospitalization overnight for treatment of?acute pancreatitis with bowel rest, IV analgesics, IVF, IV antiemetics, and post cholecystectomy care Quality Stroke Does the patient have a stroke diagnosis?: No VTE Prior VTE?: No VTE Risk Level:: Medical - moderate - high VTE Device Contraindication: Treatment Not Indicated VTE Drug Contraindication: N/A - Med Ordered
--- NOTE | 2024-06-19 15:19 | P.OP_ITS ---
Operative Note Operative Note Date of Service: 06/19/24 Narrative: Preoperative diagnosis: [] Gallstone pancreatitis Postop diagnosis: [] The same Procedure [] laparoscopic cholecystectomy with cholangiogram Surgeon: [] [employer] Engineer: [] Lex Type of Anesthesia: [] General Indication for surgery: [] Gallbladder with multiple small gallstones. Omental adhesions to the gallbladder. Cholangiogram demonstrated at least 2 free- floating stones in the distal common bile duct although contrast did enter the duodenum. Proximal extrahepatic biliary system within normal limits Findings: [] Patient brought to the operating room, placed on operative table supine position, after an adequate level of general anesthesia was induced, the patient's abdomen was prepped and draped in usual sterile fashion. Using Feliciano technique, abdominal cavity was insufflated with 15 mm of CO2. Upper midline and right subcostal ports were placed under direct laparoscopic view, the patient placed in reverse Trendelenburg position, tilted to the left. Findings were as noted above. Omental adhesions were swept off the gallbladder and the gallbladder was grasped using laparoscopic graspers, and retracted superiorly and laterally. Cystic artery and cystic duct were each identified, circumferentially skeletonized, traced directly into the gallbladder, and critical view obtained. A small incision was made in the cystic duct/Joel's pouch junction and cholangiocatheter placed and cholangiogram was performed with findings as noted above. Cystic duct was then clipped proximally x3, distally x1 and, and transected. Cystic artery was similarly clipped proximally x2 distally x1 and transected. Gallbladder which was moderately intrahepatic was then cauterized from the gallbladder fossa using Bovie. Specimen was placed in an Endo-Catch bag, a retrieved through the umbilical port. Abdominal cavity was copiously irrigated and secured hemostasis. All ports removed under direct laparoscopic view. Wounds were closed in the following manner; umbilical wound is fascia reapproximated using interrupted 0 Vicryl sutures. Skin wounds were closed using subcuticular 4-0 Vicryl sutures followed by Steri-Strips and sterile dressings. Wounds were infiltrated 0.5% Marcaine at completion. Sponge, needle, and instrument counts reported correct. Patient tolerated the procedure well and emerged from anesthesia stable condition. EBL minimal. GI will be consulted regarding cholangiogram findings.
[2024-06-19] MEDS: Enoxaparin Sodium 40 MG/0.4 ML SYRINGE SUBCUT (18:07)
[2024-06-19] MEDS: Docusate Sodium 100 MG CAPSULE 200 MG PO (19:47)
[2024-06-19] MEDS: Atorvastatin Calcium 10 MG TABLET PO (19:47)
[2024-06-20] VITALS (11 sets, daily range): BP systolic 146–185; BP diastolic 65–96; PULSE 80–105; RESP 16–18; TEMP 36.1–37.6; O2SAT 91–96
--- NOTE | 2024-06-20 | ECG_ITS ---
Test Reason : ? ST Depression Blood Pressure : / mmHG Vent. Rate : 105 BPM Atrial Rate : 105 BPM P-R Int : 114 ms QRS Dur : 076 ms QT Int : 330 ms P-R-T Axes : 043 052 051 degrees QTc Int : 436 ms Sinus tachycardia Nonspecific ST and T wave abnormality Abnormal ECG No previous ECGs available Referred By: Eileen Eller Electronically Signed By:
[2024-06-20 06:48] LABS: Hematocrit 34.5 % (37.0-47.0); Hemoglobin 11.6 g/dl (12.0-16.0); Mean Corpuscular HGB Conc 33.6 g/dl (31.0-35.0); Mean Corpuscular Hemoglobin 30.4 pg (27.0-33.0); Mean Corpuscular Volume 90.6 fL (80.0-98.0); Mean Platelet Volume 11.2 fL (9.4-12.3); Platelet Count 184 X10*3/uL (160-400); Red Blood Count 3.81 X10*6/uL (4.20-5.50); Red Cell Distribution Width 12.6 % (11.0-16.0); White Blood Count 12.7 X10*3/uL (4.8-10.8)
--- NOTE | 2024-06-20 06:50 | P.CNGI_ITS ---
History of Present Illness Data of Consult Service Date: 06/20/24 Primary Care Provider: Prince Esposito MD HPI Reason for consult: choledocholithiasis 74-year-old female with hx of?HTN, HLD, cholelithiasis, pancreatitis, and bilateral oophorectomy who I am seeing for assessment for choledocholithiasis. She initially presented with severe epigastric pain 10/10 radiating into the back with nausea and non bloody emesis. Denies chest pain/pressure, palpitations. No shortness a breath or difficulty breathing LABs on admission: leukocytosis of 15.1, AST 398, ALT 354, lipase >3000. No significant electrolyte abnormalities. Stable H&H P. Renal function baseline. UA negative Imaging: CT: pancreatitis and gallstones She eventually had cholecystectomy,- during which she had IOC whch revealed filling defects concerning for choledocholithiasis. Today she feels well apart from mild post op discomfort, Review of Systems 2 Review of Systems: Constitutional : No Weight loss, No Fever, No Chills ENT/Mouth : No sore throat, No Rhinorrhea Eyes: No Swelling, No Redness Cardiovascular : No Chest Pain, No SOB, No Edema Respiratory : No Cough, No Sputum, No Wheezing Gastrointestinal : see HPI Genitourinary : NO Dysuria, No Urinary Frequency, No Hematuria, No Urgency Musculoskeletal : no joint pain, No Myalgias, No Joint Swelling Skin : No Skin Lesions, No rash Neuro : No Weakness, No Numbness, No Dizziness, No Headache Psych : No Anxiety/Panic, No Depression Heme/Lymph: No Bruising, No Lymphadenopathy Endocrine : No Polyuria, No Polydipsia All other systems reviewed and are negative. [facility] Past Medical History Medical History Familial hypercholesterolemia Anxiety Hypertension Cholelithiasis Family History Family History Mother Lung cancer Father Stroke Sister Breast cancer Surgical History Surgical History H/O colonoscopy S/P bilateral oophorectomy Social History Social History Household Members: Spouse Housing: House Do you presently have visiting nurse or other home services: No Alcohol intake: current Alcohol intake frequency: does not drink Patient Tobacco Use Status: Never used Tobacco e-Cigarette/Vaping Use: Never Used Second Hand Smoke Exposure: No service: No Current occupational status: retired Cognitive needs: No Hearing needs: No Vision needs: Yes Meds Allergies Allergy/AdvReac Type Severity Reaction Status Date / Time No Known Allergies Allergy Verified 06/17/24 12:10 Active Medications: Current Medications Acetaminophen (Acetaminophen 325 Mg Tablet) 650 mg PO Q6H PRN PRN Reason: Pain, Mild (Pain Scale 1-3), fever or headache Amlodipine Besylate (Amlodipine Besylate 2.5 Mg Tablet) 7.5 mg PO DAILY [facility]; Protocol Last Admin: 06/19/24 07:42 Dose: 7.5 mg Atorvastatin Calcium (Atorvastatin Calcium 10 Mg Tablet) 10 mg PO BEDTIME [facility] Last Admin: 06/19/24 19:47 Dose: 10 mg Calcium Carbonate (Calcium Carbonate 750 Mg Tab.Chew) 750 mg PO Q4H PRN PRN Reason: Heartburn Docusate Sodium (Docusate Sodium 100 Mg Capsule) 200 mg PO BEDTIME ALMITA Last Admin: 06/19/24 19:47 Dose: 200 mg Enoxaparin Sodium (Enoxaparin Sodium 40 Mg/0.4 Ml Syringe) 40 mg SUBCUT Q24H [facility] Last Admin: 06/19/24 18:07 Dose: 40 mg Lactulose (Lactulose 20 Gm/30 Ml Solution) 20 gm PO DAILY PRN PRN Reason: Constipation Lisinopril (Lisinopril 20 Mg Tablet) 20 mg PO DAILY [facility]; Protocol Last Admin: 06/19/24 07:42 Dose: 20 mg Magnesium Hydroxide (Milk Of Magnesia 30 Ml Oral.Susp) 30 ml PO DAILY PRN PRN Reason: Constipation Melatonin (Melatonin 3 Mg Tablet) 6 mg PO BEDTIME PRN PRN Reason: Insomnia Morphine Sulfate (Morphine Sulfate 4 Mg/Ml Cartridge) 4 mg IVPUSH Q4H PRN; Protocol PRN Reason: Pain, Severe (Pain Scale 7-10) Last Admin: 06/19/24 01:34 Dose: 4 mg Ondansetron HCl (Ondansetron Hcl 4 Mg/2 Ml Vial) 4 mg IVPUSH Q8H PRN PRN Reason: Nausea and Vomiting Last Admin: 06/18/24 21:09 Dose: 4 mg Oxycodone HCl (Oxycodone Hcl Immed Release 5 Mg Tablet) 5 mg PO Q6H PRN PRN Reason: Pain, Moderate(Pain Scale 4-6) Last Admin: 06/18/24 11:52 Dose: 5 mg Polyethylene Glycol (Polyethylene Glycol 3350 17 Gm Powd.Pack) 17 gm PO DAILY PRN PRN Reason: Constipation Propranolol HCl (Propranolol Hcl 10 Mg Tablet) 10 mg PO DAILY PRN; Protocol PRN Reason: anxiety Sodium Chloride (0.9 % Sodium Chloride Flush 3 Ml Syringe) 3 ml IVFLUSH QSHIFT [facility] Last Admin: 06/19/24 21:39 Dose: Not Given Home Medications ?Medication ?Instructions ?Recorded ?Confirmed ?Last Taken ?Type propranolol 10 mg tablet 10 mg PO DAILY PRN anxiety 06/17/24 06/17/24 Unknown History Physical Exam 2 Vital Signs: Vital Signs: Last Vital Signs Temp 96.9 F 06/20/24 03:21 Pulse 88 06/20/24 03:21 Resp 16 06/20/24 03:21 BP 163/73 H 06/20/24 03:21 Pulse Ox 93 06/20/24 03:21 O2 Del Method Room Air 06/20/24 03:21 O2 Flow Rate 2 06/19/24 19:48 BMI result Body Mass Index 28.3 EXAM: GENERAL: The patient is well developed and nontoxic. VITAL SIGNS:see workflow HEENT: Nonicteric sclerae, PERRLA, EOMI. Oropharynx clear. Moist mucous membranes. Conjunctivae appear well perfused. No thyroid mass. CHEST: Chest wall is nontender. HEART: Regular rate and rhythm without murmurs. LUNGS: Clear to auscultation bilaterally. ABDOMEN: Soft, positive bowel sounds, nontender, no organomegaly.no flank tenderness--scars noted SKIN: No rash, no excessive bruising, petechiae, or purpura. NEUROLOGIC: Cranial nerves II-XII intact without motor/sensory deficit. Psych: normal affect Results Labs 06/20/24 05:10 06/20/24 05:10 Labs: Short CBC 06/20/24 Range/Units 05:10 WBC 12.7 H (4.8-10.8) X10*3/uL Hgb 11.6 L D (12.0-16.0) g/dl Hct 34.5 L D (37.0-47.0) % Plt Count 184 D (160-400) X10*3/uL Microbiology Microbiology Results: Microbiology 06/17/24 15:37 Blood - Venous Blood Culture - Preliminary No growth after 48 hours. 06/17/24 15:37 Blood - Venous Blood Culture - Preliminary No growth after 48 hours. Imaging fluoroscopy: Attestation: I personally reviewed and interpreted this imaging study as follows: (dilated bd with x 2 filling defects) Assessment and Plan (1) S/P laparoscopic cholecystectomy: Status: Acute Plan 1/ Choledocholithiasis on IOC PLAN: /1 ERCP today for assessment --reviewed risks and benefits, re: pancreatitis, infection, perf, if leave stones, pain and cholangitis. 2/ indomethacin KS 100 mg during ERCP, and LR Procedures Date of Service Date of Service: 06/20/24
[2024-06-20 07:09] LABS: Alanine Aminotransferase 120 U/L (0-31); Albumin Level 3.2 g/dL (3.5-5.0); Alkaline Phosphatase 63 U/L (39-117); Anion Gap 12 (12-20); Aspartate Amino Transferase 76 U/L (5-31); Bilirubin Direct 0.4 mg/dL (0.0-0.5); Bilirubin Total 0.8 mg/dL (0.0-1.0); Blood Urea Nitrogen 13 mg/dL (9-16); Calcium 8.3 mg/dL (8.4-10.2); Carbon Dioxide 28 mmol/L (22-29); Chloride 109 mmol/L (96-108); Creatinine Clr Calc Pharmacy 59.5; Estimated Glomerular Filt Rate > 60; Glucose Random 128 mg/dL (60-115); Potassium 3.9 mmol/L (3.3-5.1); Sodium 145 mmol/L (135-145); Total Protein 5.7 g/dL (6.5-8.0)
--- NOTE | 2024-06-20 08:02 | P.PNGS_ITS ---
Subjective Subjective Date of Service: 06/20/24 Interval history: Feels well today, mild incisional soreness. Tolerating liquids without worsening pain. Ambulating to bathroom without difficulty. Physical Exam 2 Vital Signs: Vital Signs: Last Vital Signs Temp 98.1 F 06/20/24 07:39 Pulse 94 06/20/24 07:39 Resp 18 06/20/24 07:39 BP 150/74 H 06/20/24 07:39 Pulse Ox 92 06/20/24 07:39 O2 Del Method Room Air 06/20/24 07:39 O2 Flow Rate 2 06/19/24 19:48 BMI result Body Mass Index 28.3 Const: General: comfortable, no acute distress and alert O rientation/consciousness: patient oriented x3 GI: Inspection: No distended and Yes incision (dressings clean and intact) Palpation (GI): Soft to palpation, Tenderness to palpation present (GI) (mild incisional) and no guarding Skin: General skin exam: no rashes or lesions noted and no jaundice Neuro: General: patient oriented x3 and moves all extremities Objective Data Active Medications Acetaminophen (Acetaminophen 325 Mg Tablet) 650 mg PO Q6H PRN PRN Reason: Pain, Mild (Pain Scale 1-3), fever or headache Amlodipine Besylate (Amlodipine Besylate 2.5 Mg Tablet) 7.5 mg PO DAILY [facility]; Protocol Last Admin: 06/19/24 07:42 Dose: 7.5 mg Documented By: LUZ Atorvastatin Calcium (Atorvastatin Calcium 10 Mg Tablet) 10 mg PO BEDTIME [facility] Last Admin: 06/19/24 19:47 Dose: 10 mg Documented By: GEORGE Calcium Carbonate (Calcium Carbonate 750 Mg Tab.Chew) 750 mg PO Q4H PRN PRN Reason: Heartburn Docusate Sodium (Docusate Sodium 100 Mg Capsule) 200 mg PO BEDTIME [facility] Last Admin: 06/19/24 19:47 Dose: 200 mg Documented By: GEORGE Enoxaparin Sodium (Enoxaparin Sodium 40 Mg/0.4 Ml Syringe) 40 mg SUBCUT Q24H [facility] Last Admin: 06/19/24 18:07 Dose: 40 mg Documented By: LUZ Lactulose (Lactulose 20 Gm/30 Ml Solution) 20 gm PO DAILY PRN PRN Reason: Constipation Lisinopril (Lisinopril 20 Mg Tablet) 20 mg PO DAILY [facility]; Protocol Last Admin: 06/19/24 07:42 Dose: 20 mg Documented By: LUZ Magnesium Hydroxide (Milk Of Magnesia 30 Ml Oral.Susp) 30 ml PO DAILY PRN PRN Reason: Constipation Melatonin (Melatonin 3 Mg Tablet) 6 mg PO BEDTIME PRN PRN Reason: Insomnia Morphine Sulfate (Morphine Sulfate 4 Mg/Ml Cartridge) 4 mg IVPUSH Q4H PRN; Protocol PRN Reason: Pain, Severe (Pain Scale 7-10) Last Admin: 06/19/24 01:34 Dose: 4 mg Documented By: GEORGE Ondansetron HCl (Ondansetron Hcl 4 Mg/2 Ml Vial) 4 mg IVPUSH Q8H PRN PRN Reason: Nausea and Vomiting Last Admin: 06/18/24 21:09 Dose: 4 mg Documented By: GEORGE Oxycodone HCl (Oxycodone Hcl Immed Release 5 Mg Tablet) 5 mg PO Q6H PRN PRN Reason: Pain, Moderate(Pain Scale 4-6) Last Admin: 06/18/24 11:52 Dose: 5 mg Documented By: JUVENTINO Polyethylene Glycol (Polyethylene Glycol 3350 17 Gm Powd.Pack) 17 gm PO DAILY PRN PRN Reason: Constipation Propranolol HCl (Propranolol Hcl 10 Mg Tablet) 10 mg PO DAILY PRN; Protocol PRN Reason: anxiety Sodium Chloride (0.9 % Sodium Chloride Flush 3 Ml Syringe) [facility] Last Admin: 06/19/24 21:39 Dose: Not Given Documented By: GEORGE Non-Admin Reason: IV Running Labs 06/20/24 05:10 06/20/24 05:10 Labs: Laboratory Results - last 24 hr 06/20/24 05:10 MCV 90.6 MCH 30.4 MCHC 33.6 RDW 12.6 Plt Count 184 D MPV 11.2 Absolute Nucleated RBC 0.000 Nucleated RBC % (auto) 0.0 Anion Gap 12 Estim Creat Clear Calc 59.5 Estimated GFR > 60 Random Glucose 128 H Calcium 8.3 L Total Bilirubin 0.8 Direct Bilirubin 0.4 AST 76 H ALT 120 H Alkaline Phosphatase 63 Total Protein 5.7 L Albumin 3.2 L Microbiology Microbiology Results: Microbiology 06/17/24 15:37 Blood Culture - Preliminary Blood - Venous No growth after 48 hours. 06/17/24 15:37 Blood Culture - Preliminary Blood - Venous No growth after 48 hours. Procedures Date of Service Date of Service: 06/20/24 Progress Note: A&P Assessment and plan (1) Acute gallstone pancreatitis: Status: Acute (2) S/P laparoscopic cholecystectomy: Status: Acute Plan POD #1 s/p lap paxton with IOC for gallstone pancreatitis. Cholangiogram showed two possible filling defects. Doing well post op today, abd benign with appropriate post op tenderness, dressings intact. GI consulted. LFTs downtrending. NPO for now in case of possible ERCP. Patient comfortable with plan. Time Spent With Patient Time: Total time managing care of this patient today ____ minutes. Quality Stroke Does the patient have a stroke diagnosis?: No VTE Prior VTE?: No VTE Risk Level:: Medical - moderate - high VTE Device Contraindication: Treatment Not Indicated VTE Drug Contraindication: N/A - Med Ordered
[2024-06-20] MEDS: amLODIPine Besylate 2.5 MG TABLET 7.5 MG PO (09:04)
[2024-06-20] MEDS: lisinopriL 20 MG TABLET PO (09:05)
[2024-06-20] MEDS: 0.9 % Sodium Chloride Flush 3 ML SYRINGE IVFLUSH ×2 (09:05→21:13)
[2024-06-20] MEDS: Lactated Ringers 1,000 ML 100 ML IVCONT ×2 (10:27→15:07)
--- NOTE | 2024-06-20 11:00 | HO.POSTANES ---
Post Anesthesia Evaluation Post Anesthesia Evaluation Date of Service: 06/20/24 Vital Signs: Vital Signs Temp Pulse Resp BP Pulse Ox O2 Del Method 06/20/24 09:05 150/74 H 06/20/24 09:04 150/74 H 06/20/24 07:39 98.1 F 94 18 150/74 H 92 Room Air 06/20/24 03:21 96.9 F 88 16 163/73 H 93 Room Air 06/19/24 23:39 96.9 F 100 16 168/72 H 95 Room Air Anesthesia: General Endotracheal-GETA Mental Status: Awake Pain Control: Satisfactory Nausea/Vomiting: None Hydration: Adequate Anesthesia-Related Issues: No Anes. Related Issues
--- NOTE | 2024-06-20 12:31 | HO.PM.IMPN ---
Subjective Subjective Date of Service: 06/20/24 Interval History: NPO for ERCP since noted to have common bile duct stone during intra operative cholangiogram Patient denies abdominal pain, no nausea, no vomiting, no acute events overnight. Review of Systems All other system reviewed and are negative. Physical Exam Vital Signs: Vital Signs: Last Vital Signs Temp 98.3 F 06/20/24 11:28 Pulse 90 06/20/24 11:28 Resp 18 06/20/24 11:28 BP 176/78 H 06/20/24 11:28 Pulse Ox 91 L 06/20/24 11:28 O2 Del Method Room Air 06/20/24 11:28 O2 Flow Rate 2 06/19/24 19:48 BMI result Body Mass Index 28.3 Const: Other: General resting comfortably in no acute distress. Moist mucous membranes Anicteric sclera Neck no JVD. CVS regular rate rhythm, Respiratory lungs clear to auscultation, no respiratory distress, no rhonchi. Gastrointestinal abdomen soft, mild incisional tenderness to palpation, bowel sounds audible, no guarding , no rigidity. Extremities no edema. Neuro non focal Skin no rash Psych appropriate affect Objective Data Active Medications Acetaminophen (Acetaminophen 325 Mg Tablet) 650 mg PO Q6H PRN PRN Reason: Pain, Mild (Pain Scale 1-3), fever or headache Amlodipine Besylate (Amlodipine Besylate 2.5 Mg Tablet) 7.5 mg PO DAILY [facility]; Protocol Last Admin: 06/20/24 09:04 Dose: 7.5 mg Documented By: LUZ Atorvastatin Calcium (Atorvastatin Calcium 10 Mg Tablet) 10 mg PO BEDTIME [facility] Last Admin: 06/19/24 19:47 Dose: 10 mg Documented By: GEORGE Calcium Carbonate (Calcium Carbonate 750 Mg Tab.Chew) 750 mg PO Q4H PRN PRN Reason: Heartburn Docusate Sodium (Docusate Sodium 100 Mg Capsule) 200 mg PO BEDTIME [facility] Last Admin: 06/19/24 19:47 Dose: 200 mg Documented By: GEORGE Enoxaparin Sodium (Enoxaparin Sodium 40 Mg/0.4 Ml Syringe) 40 mg SUBCUT Q24H [facility] Last Admin: 06/19/24 18:07 Dose: 40 mg Documented By: LUZ Lactated Ringer's (Lr) 1,000 mls @ 100 mls/hr IVCONT .Q10H [facility] Last Admin: 06/20/24 10:27 Dose: 100 mls/hr Documented By: LUZ Lactulose (Lactulose 20 Gm/30 Ml Solution) 20 gm PO DAILY PRN PRN Reason: Constipation Lisinopril (Lisinopril 20 Mg Tablet) 20 mg PO DAILY [facility]; Protocol Last Admin: 06/20/24 09:05 Dose: 20 mg Documented By: LUZ Magnesium Hydroxide (Milk Of Magnesia 30 Ml Oral.Susp) 30 ml PO DAILY PRN PRN Reason: Constipation Melatonin (Melatonin 3 Mg Tablet) 6 mg PO BEDTIME PRN PRN Reason: Insomnia Morphine Sulfate (Morphine Sulfate 4 Mg/Ml Cartridge) 4 mg IVPUSH Q4H PRN; Protocol PRN Reason: Pain, Severe (Pain Scale 7-10) Last Admin: 06/19/24 01:34 Dose: 4 mg Documented By: GEORGE Ondansetron HCl (Ondansetron Hcl 4 Mg/2 Ml Vial) 4 mg IVPUSH Q8H PRN PRN Reason: Nausea and Vomiting Last Admin: 06/18/24 21:09 Dose: 4 mg Documented By: GEORGE Oxycodone HCl (Oxycodone Hcl Immed Release 5 Mg Tablet) 5 mg PO Q6H PRN PRN Reason: Pain, Moderate(Pain Scale 4-6) Last Admin: 06/18/24 11:52 Dose: 5 mg Documented By: JUVENTINO Polyethylene Glycol (Polyethylene Glycol 3350 17 Gm Powd.Pack) 17 gm PO DAILY PRN PRN Reason: Constipation Propranolol HCl (Propranolol Hcl 10 Mg Tablet) 10 mg PO DAILY PRN; Protocol PRN Reason: anxiety Sodium Chloride (0.9 % Sodium Chloride Flush 3 Ml Syringe) 3 ml IVFLUSH QSHIFT [facility] Last Admin: 06/20/24 09:05 Dose: 3 ml Documented By: LUZ Labs 06/20/24 05:10 06/20/24 05:10 Labs: Laboratory Results - last 24 hr 06/20/24 05:10 MCV 90.6 MCH 30.4 MCHC 33.6 RDW 12.6 Plt Count 184 D MPV 11.2 Absolute Nucleated RBC 0.000 Nucleated RBC % (auto) 0.0 Anion Gap 12 Estim Creat Clear Calc 59.5 Estimated GFR > 60 Random Glucose 128 H Calcium 8.3 L Total Bilirubin 0.8 Direct Bilirubin 0.4 AST 76 H ALT 120 H Alkaline Phosphatase 63 Total Protein 5.7 L Albumin 3.2 L Microbiology Microbiology Results: Microbiology 06/17/24 15:37 Blood Culture - Preliminary Blood - Venous No growth after 48 hours. 06/17/24 15:37 Blood Culture - Preliminary Blood - Venous No growth after 48 hours. Assessment and Plan (1) S/P laparoscopic cholecystectomy: Status: Acute (2) Acute gallstone pancreatitis: Status: Acute (3) Familial hypercholesterolemia: Status: Acute (4) Anxiety: Status: Acute (5) Hypertension: Status: Acute Plan 74-year-old female with a PMH significant for?HTN, HLD, cholelithiasis, pancreatitis, and bilateral oophorectomy who presents to the ED with?epigastric abdominal pain radiating to back with nausea and vomiting since this morning. Pt will be admitted to the hospital for treatment and further evaluation of acute pancreatitis likely secondary to gallstone. Acute gallstone pancreatitis POD #1 s/p lap paxton with IOC showed two possible filling defects, therefore NPO for ERCP. Postoperatively good pain control US of RUQ common bile duct measures 0.4 cm in diameter, . No gallbladder wall thickening or pericholecystic fluid. CT w/peripancreatic fluid surrounding entire pancrease, LFTs trending down/lipase improved from 792 to 373 Continue IVF, analgesics, and antiemetics WBC trending down, no sepsis noted Hypertensive urgency BP 195/74 in the ED,now on lisinopril, and amlodipine, BP remains elevated will increase amlodipine to 10 mg On propranolol as needed for anxiety Monitor BP closely HLD Continue statin Full Code DVT Prophylaxis: Lovenox Pt will require continued inpatient hospitalization for postoperative management of cholecystectomy and for ERCP . Quality Stroke Does the patient have a stroke diagnosis?: No VTE Prior VTE?: No VTE Risk Level:: Medical - moderate - high VTE Device Contraindication: Treatment Not Indicated VTE Drug Contraindication: N/A - Med Ordered
--- NOTE | 2024-06-20 13:11 | MHC.CM.PN ---
EMR REVIEWED AND PER MD ROUNDS, PT IS NOT MEDICALLY CLEARED FOR DC. PT WILL HAVE AN ERCP DONE TODAY. CM WILL CONTINUE TO FOLLOW FOR ANY CHANGE TO DC PLAN/NEEDS.
--- NOTE | 2024-06-20 13:31 | MHC.SHP ---
Pre-Procedural Eval Section A - 24 Hr Update-Section A only Date of Service: 06/20/24 The patient is an INPATIENT: Yes The patient has been examined within 24 hours of the surgical procedure. The History & Physical has been completed within 30 days and I have reviewed it.: Yes Section B - Complete if H&P > 30 days Chief Complaint: Acute Pancreatitis Allergies: Allergies Allergy/AdvReac Type Severity Reaction Status Date / Time No Known Allergies Allergy Verified 06/17/24 12:10 Plan Diagnosis/Plan: Unchanged I have reviewed the history and physical and performed a pertinent physical examination on my patient. No changes have occurred unless specified. ERCP for evaluation Time Spent With Patient Time: Total time managing care of this patient today ____ minutes.
--- NOTE | 2024-06-20 13:41 | ECG_ITS ---
Test Reason : preop Blood Pressure : / mmHG Vent. Rate : 124 BPM Atrial Rate : 138 BPM P-R Int : 136 ms QRS Dur : 070 ms QT Int : 242 ms P-R-T Axes : 028 055 262 degrees QTc Int : 347 ms Artifact in tracing Sinus tachycardia ST depression, inferior and anterolateral leads Abnormal ECG When compared to the previous EKG of november 02, 2022, increase in rate; ST depression noted Referred By: Eileen Eller Electronically Signed By:ARPAN ROCKWELL
--- NOTE | 2024-06-20 13:53 | P.CONAN_ITS ---
HPI - Anesthesia Eval Consult details Narrative: 74 yo female patient. S/p Laparoscopic Cholecystectomy yesterday. For ERCP PMFSH Active Problems Active Problems: All Active Problems S/P laparoscopic cholecystectomy (Acute) Acute gallstone pancreatitis (Acute) Acute pancreatitis (Acute) Familial hypercholesterolemia (Acute) Anxiety (Acute) S/P bilateral oophorectomy (Acute) Cholelithiasis (Acute) Hypertension (Acute) Past Medical History Medical History Familial hypercholesterolemia Anxiety Hypertension Cholelithiasis Family History Family History Mother Lung cancer Father Stroke Sister Breast cancer Family history of problems with anesthesia: No Surgical History Surgical History Hx laparoscopic cholecystectomy H/O colonoscopy S/P bilateral oophorectomy History of Problems with Anesthesia: No Social History Social History Household Members: Spouse Housing: House Do you presently have visiting nurse or other home services: No Alcohol intake: current Alcohol intake frequency: does not drink Patient Tobacco Use Status: Never used Tobacco e-Cigarette/Vaping Use: Never Used Second Hand Smoke Exposure: No service: No Current occupational status: retired Cognitive needs: No Hearing needs: No Vision needs: Yes Meds Allergies Allergy/AdvReac Type Severity Reaction Status Date / Time No Known Allergies Allergy Verified 06/20/24 13:45 Active Medications: Current Medications Acetaminophen (Acetaminophen 325 Mg Tablet) 650 mg PO Q6H PRN PRN Reason: Pain, Mild (Pain Scale 1-3), fever or headache Amlodipine Besylate (Amlodipine Besylate 10 Mg Tablet) 10 mg PO DAILY [facility]; Protocol Atorvastatin Calcium (Atorvastatin Calcium 10 Mg Tablet) 10 mg PO BEDTIME [facility] Last Admin: 06/19/24 19:47 Dose: 10 mg Calcium Carbonate (Calcium Carbonate 750 Mg Tab.Chew) 750 mg PO Q4H PRN PRN Reason: Heartburn Docusate Sodium (Docusate Sodium 100 Mg Capsule) 200 mg PO BEDTIME [facility] Last Admin: 06/19/24 19:47 Dose: 200 mg Enoxaparin Sodium (Enoxaparin Sodium 40 Mg/0.4 Ml Syringe) 40 mg SUBCUT Q24H [facility] Last Admin: 06/19/24 18:07 Dose: 40 mg Lactated Ringer's (Lr) 1,000 mls @ 100 mls/hr IVCONT .Q10H [facility] Last Infusion: 06/20/24 13:31 Dose: 0 mls/hr Lactated Ringer's (Lr) 1,000 mls @ 100 mls/hr IVCONT .Q10H [facility] Acetaminophen (Ofirmev) 1,000 mg in 100 mls @ 400 mls/hr IV PREOP ONE Stop: 06/20/24 13:56 Lactulose (Lactulose 20 Gm/30 Ml Solution) 20 gm PO DAILY PRN PRN Reason: Constipation Lisinopril (Lisinopril 20 Mg Tablet) 20 mg PO DAILY [facility]; Protocol Last Admin: 06/20/24 09:05 Dose: 20 mg Magnesium Hydroxide (Milk Of Magnesia 30 Ml Oral.Susp) 30 ml PO DAILY PRN PRN Reason: Constipation Melatonin (Melatonin 3 Mg Tablet) 6 mg PO BEDTIME PRN PRN Reason: Insomnia Morphine Sulfate (Morphine Sulfate 4 Mg/Ml Cartridge) 4 mg IVPUSH Q4H PRN; Protocol PRN Reason: Pain, Severe (Pain Scale 7-10) Last Admin: 06/19/24 01:34 Dose: 4 mg Ondansetron HCl (Ondansetron Hcl 4 Mg/2 Ml Vial) 4 mg IVPUSH Q8H PRN PRN Reason: Nausea and Vomiting Last Admin: 06/18/24 21:09 Dose: 4 mg Oxycodone HCl (Oxycodone Hcl Immed Release 5 Mg Tablet) 5 mg PO Q6H PRN PRN Reason: Pain, Moderate(Pain Scale 4-6) Last Admin: 06/18/24 11:52 Dose: 5 mg Polyethylene Glycol (Polyethylene Glycol 3350 17 Gm Powd.Pack) 17 gm PO DAILY PRN PRN Reason: Constipation Propranolol HCl (Propranolol Hcl 10 Mg Tablet) 10 mg PO DAILY PRN; Protocol PRN Reason: anxiety Sodium Chloride (0.9 % Sodium Chloride Flush 3 Ml Syringe) 3 ml IVFLUSH QSHIFT [facility] Last Admin: 06/20/24 09:05 Dose: 3 ml Home Medications ?Medication ?Instructions ?Recorded ?Confirmed ?Last Taken ?Type propranolol 10 mg tablet 10 mg PO DAILY PRN anxiety 06/17/24 06/17/24 Unknown History Exam Height,Weight and Vital Signs: Height 5 ft 1 in Weight 68.039 kg Last Vital Signs Temp 98.3 F 06/20/24 11:28 Pulse 90 06/20/24 11:28 Resp 18 06/20/24 11:28 BP 176/78 H 06/20/24 11:28 Pulse Ox 91 L 06/20/24 11:28 O2 Del Method Room Air 06/20/24 11:28 O2 Flow Rate 2 06/19/24 19:48 Pertinent Lab Results Pertinent Lab Results: Laboratory Tests 06/17/24 06/17/24 06/18/24 12:32 13:59 05:08 WBC 15.1 H RBC 5.00 Hgb 15.3 Hct 45.2 MCV 90.4 MCH 30.6 MCHC 33.8 RDW 12.3 Plt Count 290 MPV 10.8 Immature Gran % (Auto) 0.2 Neut % (Auto) 77.1 H Lymph % (Auto) 16.9 L [place] % (Auto) 4.7 Eos % (Auto) 0.5 Baso % (Auto) 0.6 Lymph # (Auto) 2.5 [place] # (Auto) 0.7 Eos # (Auto) 0.1 Baso # (Auto) 0.1 Abs Immat Gran (auto) 0.03 Absolute Neuts (auto) 11.6 H Absolute Nucleated RBC 0.000 Nucleated RBC % (auto) 0.0 Sodium 144 143 Potassium 3.8 4.0 Chloride 111 H 111 H Carbon Dioxide 26 23 Anion Gap 11 L 13 BUN 24 H 28 H Creatinine 1.02 0.95 Estim Creat Clear Calc 42.0 45.1 Estimated GFR 53 57 Random Glucose 145 H 152 H Lactic Acid 1.6 Calcium 8.9 D 8.8 Magnesium 1.9 Total Bilirubin 0.9 0.6 Direct Bilirubin AST 398 H 160 H ALT 354 H 282 H Alkaline Phosphatase 89 77 Total Protein 6.3 L 5.8 L Albumin 3.9 3.7 Triglycerides 96 Lipase > 3000 H 792 H Urine Color Yellow Urine Appearance Clear Urine pH 5.0 Ur Specific [place] 1.015 Urine Protein Negative Urine Glucose (UA) Negative Urine Ketones Negative Urine Blood Negative Urine Nitrite Negative Ur Leukocyte Esterase Trace H Urine RBC 0-2 Urine WBC 0-5 Ur Squamous Epith Cells 0-2 Urine Bacteria None Seen Hyaline Casts 0-2 Influenza Type A (PCR) NEGATIVE Influenza Type B (PCR) NEGATIVE RSV RNA Qual (PCR) NEGATIVE SARS-CoV-2 RNA (RT-PCR) NEGATIVE 06/19/24 06/20/24 05:39 05:10 WBC 12.7 H RBC 3.81 L D Hgb 11.6 L D Hct 34.5 L D MCV 90.6 MCH 30.4 MCHC 33.6 RDW 12.6 Plt Count 184 D MPV 11.2 Immature Gran % (Auto) Neut % (Auto) Lymph % (Auto) [place] % (Auto) Eos % (Auto) Baso % (Auto) Lymph # (Auto) [place] # (Auto) Eos # (Auto) Baso # (Auto) Abs Immat Gran (auto) Absolute Neuts (auto) Absolute Nucleated RBC 0.000 Nucleated RBC % (auto) 0.0 Sodium 145 Potassium 3.9 Chloride 109 H Carbon Dioxide 28 Anion Gap 12 BUN 13 Creatinine 0.72 Estim Creat Clear Calc 59.5 Estimated GFR > 60 Random Glucose 128 H Lactic Acid Calcium 8.3 L Magnesium Total Bilirubin 0.8 Direct Bilirubin 0.4 AST 76 H ALT 120 H Alkaline Phosphatase 63 Total Protein 5.7 L Albumin 3.2 L Triglycerides Lipase 373 H Urine Color Urine Appearance Urine pH Ur Specific [place] Urine Protein Urine Glucose (UA) Urine Ketones Urine Blood Urine Nitrite Ur Leukocyte Esterase Urine RBC Urine WBC Ur Squamous Epith Cells Urine Bacteria Hyaline Casts Influenza Type A (PCR) Influenza Type B (PCR) RSV RNA Qual (PCR) SARS-CoV-2 RNA (RT-PCR) Airway Mallampati Class: III (Small mouth) TM Dist: >3cm Neck ROM: Full Loose/Missing/Broken Teeth: No Heart: RRR Lungs: CTAB Assessment and Plan Assessment Anesthesia Assessment: Anesthesia Plan Discussed and Chart Reviewed Final Anesthetic Review Family History of Problems with Anesthesia: No History of Problems with Anesthesia: No NPO: Yes ASA Class: II and Emergency Final Preanesthetic Review: No Changes in Pt Med Stat, Meds/Allgs Chart Reviewed, Consent Obtained/Reviewed and Anes Risks/Benef Reviewed Patient Risk: Intermediate Procedure Risk: Low Assessment/Block/Sedation in SS: Assess/Block/Sedation-SS Anesthetic Plan Anesthetic Plan: GA Disposition: Standard PACU
--- NOTE | 2024-06-20 13:55 | ECG_ITS ---
Test Reason : CP Blood Pressure : / mmHG Vent. Rate : 144 BPM Atrial Rate : 156 BPM P-R Int : 126 ms QRS Dur : 078 ms QT Int : 292 ms P-R-T Axes : 053 060 017 degrees QTc Int : 452 ms First part of the EKG shows sinus and the second part possibly atrial tachycardia vs flutter Nonspecific ST and T wave abnormality Abnormal ECG When compared to the previous EKG of same day, rhythm change Referred By: Shaniqua Grimes Electronically Signed By:ARPAN ROCKWELL
--- NOTE | 2024-06-20 14:21 | PC.NURSE ---
Patient arrived to preop via stretcher from floor. Patient confused regarding scheduled procedure today. Dr. Feliciano at bedside to explain. principal architect showing ST 100's, possible inverted T wave. Dr. Eller at bedside, new order for stat EKG. During EKG, HR up to the 170's. EKG showing ST with S & T abnormalities. Patient states I am very nervous . HR fluctuating from 100's to 160's. Call placed to Dr. Stevens by Dr. Eller. Dr. Stevens to consult patient up on the floor. New IV placed, #20 right hand, tolerated well. Case cancelled per Dr. Eller and Dr. Feliciano. Patient aware of plan, transferred back upstairs. Aurora Stanton floor nurse made aware.
[2024-06-20] MEDS: LORazepam 0.5 MG TABLET PO (15:05)
[2024-06-20] MEDS: Metoprolol Tartrate 50 MG TABLET PO ×2 (15:10→21:09)
[2024-06-20] MEDS: Enoxaparin Sodium 40 MG/0.4 ML SYRINGE SUBCUT (17:31)
[2024-06-20] MEDS: Docusate Sodium 100 MG CAPSULE 200 MG PO (21:09)
[2024-06-20] MEDS: Atorvastatin Calcium 10 MG TABLET PO (21:09)
[2024-06-21] VITALS (13 sets, daily range): BP systolic 130–191; BP diastolic 56–81; PULSE 64–99; RESP 16–20; TEMP 36.1–37.5; O2SAT 93–98
[2024-06-21 06:57] LABS: Anion Gap 11 (12-20); Blood Urea Nitrogen 14 mg/dL (9-16); Calcium 8.5 mg/dL (8.4-10.2); Carbon Dioxide 26 mmol/L (22-29); Chloride 110 mmol/L (96-108); Creatinine Clr Calc Pharmacy 57.9; Estimated Glomerular Filt Rate > 60; Glucose Random 98 mg/dL (60-115); Potassium 3.4 mmol/L (3.3-5.1); Sodium 144 mmol/L (135-145)
--- NOTE | 2024-06-21 07:00 | CA_ITS ---
Transthoracic Echocardiogram Patient (Last, First, Middle): Lauren Hutton, Gender: Female Date of : 1950 Age: 74 Procedure Date: 06/21/2024 Procedure Type: Transthoracic Echocardiogram Location: S3E Height: 154.94 cm Weight: 68.04 kg BSA: 1.67 m2 Heart Rate: bpm BP: 174 / 78 mmHg [employer] Director: LESLY Referring MD: Jaskaran Stevens MD Symptoms: SVT, preop Study Quality: Fair ECG Rhythm: Sinus Conclusions: - The left ventricular systolic function is normal. The visually estimated ejection fraction is between 65-70%. - The inferolateral wall is hypokinetic. - No obvious valvular pathology seen on this study. Findings Left Ventricle Normal left ventricular cavity size. There is mildly increased left ventricular wall thickness. The left ventricular systolic function is normal. The visually estimated ejection fraction is between 65-70%. Diastolic function is normal for age. Wall Motion Rest Echo Findings The inferolateral wall is hypokinetic. Right Ventricle Normal right ventricular cavity size and systolic function. Atria The left atrium is mildly dilated. The right atrium is normal in size. Aortic Valve There is mild calcification of the aortic valve. There is no aortic valve stenosis. There is no aortic valve regurgitation. Mitral Valve There is mild mitral annular calcification. There is no mitral valve regurgitation. There is no mitral valve stenosis. Pulmonic Valve The pulmonic valve is likely normal. Tricuspid Valve Normal tricuspid valve structure. There is trace tricuspid valve regurgitation. There is no evidence of pulmonary hypertension. Great Vessels The sinuses of valsalva and asc aorta are normal in size. Small plaque is seen in the sino tubular ridge. Venous The inferior vena cava is normal in size and collapses less than 50% with inspiration. Pericardium/Pleural There is no evidence of pericardial effusion. Prior Study Comparison No prior study available for comparison. Recommendations, Care & Conclusions No obvious valvular pathology seen on this study. Measurements 2D Linear Measurements IVSd: 1.27 0.6-0.9/0.6-1.0 cm LVIDd: 3.76 3.9-5.3/4.2-5.9 cm LVIDd Index: 2.25 2.4-3.2/2.2-3.1 cm/m2 LVIDs: 2.62 2.0-3.6 cm LVPWd: 1.13 0.7-1.1 cm LA Diam: 4.60 2.7-3.8/3.0-4.0 cm LAIDs Index: 2.75 1.5-2.3 cm/m2 LV Mass: 187.81 67-162/88-224 g LV Mass Index: 112.46 43-95/49-115 g/m2 LVOT Diam: 1.90 3.0+(-)1.3 cm 2D Systolic Function EF 4C: 76.40 >55% EF 2C: 76.40 >55% EF BiP: 76.00 >55% Mitral Valve MV Pk E: 1.37 MV PK A: 0.95 MV Decel Time: 174.00 E/A: 1.40 E'Lateral: 9.14 E'Medial: 6.42 E/E' Med: 21.30 E/E' Lat: 15.00 PHT: 51.00 MVA PHT: 4.31 Decel Lam[place]re: 7.84 Aortic Valve AoV Pk Ady: 1.43 AoV Mn Ady: 0.99 AoV VTI: 0.30 AoV Pk Grad: 8.00 Aov Mn Grad: 5.00 FAN Cont.VTI: 2.20 LVOT LVOT Pk Ady: 1.20 LVOT Mn Ady: 0.76 LVOT VTI: 0.23 LVOT Pk Grad: 6.00 LVOT Mn Grad: 3.00 LVOT Diam: 1.90 LVOT Area: 2.84 Diastolic Function MV Pk E: 1.37 MV Pk A: 0.95 E/A: 1.40 E'Medial: 6.42 E/E' Med: 21.30 E' Laterial: 9.14 E/E' Lat: 15.00 Right Ventricle TAPSE (mm): 17.50 TVS' Ady: 13.30 Tricuspid Valve TR Pk Ady: 2.57 TR Pk Grad: 26.00 RA Press: 8.00 RVSP: 34.00 Great Vessels Aorta Sinus of Valsalva: 3.00 2.0-3.5 cm Ao Asc: 3.10 2.1-3.4 cm Pulmonary Valve PV Pk Ady: 0.83 Peak PV Grad: 3.00 Updated in Other Vendor System with Status of Final Jaskaran Stevens MD electronically signed on 06/21/2024 11:13:03 AM with status of Final
[2024-06-21 07:06] LABS: Hematocrit 35.2 % (37.0-47.0); Hemoglobin 11.9 g/dl (12.0-16.0); Mean Corpuscular HGB Conc 33.8 g/dl (31.0-35.0); Mean Corpuscular Hemoglobin 30.1 pg (27.0-33.0); Mean Corpuscular Volume 88.9 fL (80.0-98.0); Mean Platelet Volume 11.3 fL (9.4-12.3); Platelet Count 218 X10*3/uL (160-400); Red Blood Count 3.96 X10*6/uL (4.20-5.50); Red Cell Distribution Width 12.4 % (11.0-16.0); White Blood Count 11.8 X10*3/uL (4.8-10.8)
[2024-06-21 07:12] LABS: Thyroid Stimulating Hormone 2.71 uIU/mL (0.32-4.0)
[2024-06-21] MEDS: lisinopriL 20 MG TABLET PO (07:39)
[2024-06-21] MEDS: Metoprolol Tartrate 50 MG TABLET PO ×2 (07:39→20:53)
[2024-06-21] MEDS: 0.9 % Sodium Chloride Flush 3 ML SYRINGE IVFLUSH ×3 (07:40→20:54)
--- NOTE | 2024-06-21 08:53 | PM.PNGS ---
Subjective Subjective Date of Service: 06/21/24 Interval history: Was awaiting ERCP yesterday however HR in 170s in pre op and therefore case cancelled. Patient feels well this morning. Has minimal incisional pain. Physical Exam Vital Signs: Vital Signs: Last Vital Signs Temp 97.7 F 06/21/24 07:29 Pulse 84 06/21/24 07:29 Resp 16 06/21/24 07:29 BP 174/79 H 06/21/24 07:29 Pulse Ox 94 06/21/24 07:29 O2 Del Method Room Air 06/21/24 07:29 O2 Flow Rate 2 06/19/24 19:48 BMI result Body Mass Index 28.3 Const: General: comfortable, no acute distress and alert Orientation/consciousness: patient oriented x3 Resp: Effort & Inspection: normal respiratory effort GI: Inspection: No distended and Yes incision (dressings c/d/i) Palpation (GI): Soft to palpation, Tenderness to palpation present (GI) (very mild incisional) and no guarding Skin: General skin exam: no rashes or lesions noted and no jaundice Neuro: General: patient oriented x3 and moves all extremities Objective Data Active Medications Acetaminophen (Acetaminophen 325 Mg Tablet) 650 mg PO Q6H PRN PRN Reason: Pain, Mild (Pain Scale 1-3), fever or headache Amlodipine Besylate (Amlodipine Besylate 5 Mg Tablet) 5 mg PO DAILY [facility]; Protocol Atorvastatin Calcium (Atorvastatin Calcium 10 Mg Tablet) 10 mg PO BEDTIME [facility] Last Admin: 06/20/24 21:09 Dose: 10 mg Documented By: GEORGE Calcium Carbonate (Calcium Carbonate 750 Mg Tab.Chew) 750 mg PO Q4H PRN PRN Reason: Heartburn Docusate Sodium (Docusate Sodium 100 Mg Capsule) 200 mg PO BEDTIME [facility] Last Admin: 06/20/24 21:09 Dose: 200 mg Documented By: GEORGE Enoxaparin Sodium (Enoxaparin Sodium 40 Mg/0.4 Ml Syringe) 40 mg SUBCUT Q24H [facility] Last Admin: 06/20/24 17:31 Dose: 40 mg Documented By: LUZ Lactulose (Lactulose 20 Gm/30 Ml Solution) 20 gm PO DAILY PRN PRN Reason: Constipation Lisinopril (Lisinopril 20 Mg Tablet) 20 mg PO DAILY [facility]; Protocol Last Admin: 06/21/24 07:39 Dose: 20 mg Documented By: CHAO Lorazepam (Lorazepam 0.5 Mg Tablet) 0.5 mg PO Q8H PRN PRN Reason: anxiety Last Admin: 06/20/24 15:05 Dose: 0.5 mg Documented By: CYN Magnesium Hydroxide (Milk Of Magnesia 30 Ml Oral.Susp) 30 ml PO DAILY PRN PRN Reason: Constipation Melatonin (Melatonin 3 Mg Tablet) 6 mg PO BEDTIME PRN PRN Reason: Insomnia Metoprolol Tartrate (Metoprolol Tartrate 50 Mg Tablet) 50 mg PO BID [facility]; Protocol Last Admin: 06/21/24 07:39 Dose: 50 mg Documented By: CHAO Morphine Sulfate (Morphine Sulfate 4 Mg/Ml Cartridge) 4 mg IVPUSH Q4H PRN; Protocol PRN Reason: Pain, Severe (Pain Scale 7-10) Last Admin: 06/19/24 01:34 Dose: 4 mg Documented By: GEORGE Ondansetron HCl (Ondansetron Hcl 4 Mg/2 Ml Vial) 4 mg IVPUSH Q8H PRN PRN Reason: Nausea and Vomiting Last Admin: 06/18/24 21:09 Dose: 4 mg Documented By: GEORGE Oxycodone HCl (Oxycodone Hcl Immed Release 5 Mg Tablet) 5 mg PO Q6H PRN PRN Reason: Pain, Moderate(Pain Scale 4-6) Last Admin: 06/18/24 11:52 Dose: 5 mg Documented By: JUVENTINO Polyethylene Glycol (Polyethylene Glycol 3350 17 Gm Powd.Pack) 17 gm PO DAILY PRN PRN Reason: Constipation Sodium Chloride (0.9 % Sodium Chloride Flush 3 Ml Syringe) [facility] Last Admin: 06/21/24 07:40 Dose: 3 ml Documented By: CHAO Labs 06/21/24 05:17 06/21/24 05:17 Labs: Laboratory Results - last 24 hr 06/20/24 06/21/24 14:57 05:17 MCV 88.9 MCH 30.1 MCHC 33.8 RDW 12.4 Plt Count 218 MPV 11.3 Absolute Nucleated RBC 0.000 Nucleated RBC % (auto) 0.0 Anion Gap 11 L Estim Creat Clear Calc 57.9 Estimated GFR > 60 Random Glucose 98 Calcium 8.5 Troponin I High Sens 9.0 D TSH 2.71 Procedures Date of Service Date of Service: 06/21/24 Progress Note: A&P Assessment and plan (1) Acute gallstone pancreatitis: Status: Acute (2) S/P laparoscopic cholecystectomy: Status: Acute Plan POD #2 s/p lap paxton with IOC for gallstone pancreatitis. Cholangiogram showed two possible filling defects. ERCP cancelled yesterday for tachycardia. HR controlled this morning. Awaiting procedure today pending cardiology eval. Doing well from surgical standpoint, pain minimal and abd benign with clean dressings. Can advance diet following procedure as tolerated. Time Spent With Patient Time: Total time managing care of this patient today ____ minutes. Quality Stroke Does the patient have a stroke diagnosis?: No VTE Prior VTE?: No VTE Risk Level:: Medical - moderate - high VTE Device Contraindication: Treatment Not Indicated VTE Drug Contraindication: N/A - Med Ordered
[2024-06-21] MEDS: amLODIPine Besylate 5 MG TABLET PO (09:06)
--- NOTE | 2024-06-21 09:34 | PM.CNCAR ---
History of Present Illness History of Present Illness Date of Service: 06/21/24 Chief complaint: Acute Pancreatitis Narrative: This is a cardiology consultation regarding tachycardia. Discussed with Anesthesiology as today. Essentially, patient has gallstone pancreatitis. It seems she underwent laparoscopic cholecystectomy. Subsequently, it seems that she was taken for ERCP. In that context, she was apparently very anxious as too much was happening too soon. She was overwhelmed and panicky. Then anesthesia noticed runs of tachycardia on telemetry and the procedure was canceled. They discussed with me at that time and it seems like possible atrial tachycardia but not entirely clear as it was not completely captured, just a part of the EKG. Patient herself denies any previous cardiac history. No history of any coronary disease or myocardial infarction or cardiomyopathy or in fact any other cardiac issues. She also denies any cardiac arrhythmias in the past. She strongly believes that anxiety provoked everything and she does not have a cardiac problem. Currently, she feels fine. Now ERCP has been rescheduled, possibly to today. Review of Systems Review of Systems: Yes all other systems are reviewed and are negative Constitutional: Constitutional: Reports as per HPI and Reports no additional constitutional complaints Eyes: Eyes: Reports as per HPI and Denies no additional eye complaints ENT: Denies system reviewed and no additional complaints, except as documented and Reports as per HPI Cardiovascular: Cardiovascular: Reports as per HPI, Reports no additional cardiovascular complaints, Denies acrocyanosis, Denies cool extremities, Denies chest pain, Denies leg edema, Denies lightheadedness, Denies palpitations and Denies dyspnea Respiratory: Respiratory: Reports as per HPI, Denies no additional respiratory complaints and Denies dyspnea Gastrointestinal: Gastrointestinal: Reports as per HPI and Denies no additional gastrointestinal complaints Genitourinary: Genitourinary: Reports as per HPI Musculoskeletal: Musculoskeletal: Reports no additional musculoskeletal complaints and Reports as per HPI Integumentary/Breasts: Skin/Breast: Reports system reviewed and no additional complaints, except as docu Neurologic: Reports system reviewed and no additional complaints, except as documented and Reports as per HPI Psychiatric: Psychiatric: Reports no additional psychiatric complaints and Reports as per HPI Endocrine: Endocrine: Reports no additional endocrine complaints, Reports as per HPI and Denies palpitations Hematologic/Lymphatic: Hematologic/Lymphatic: Reports no additional hematologic/lymphatic complaints and Reports as per HPI Allergic/Immunologic: Allergic/Immunologic: Reports no additional allergic/immunologic complaints and Reports as per HPI [facility] [place] Past Medical History Medical History Familial hypercholesterolemia Anxiety Hypertension Cholelithiasis Family History Family History Mother Lung cancer Father Stroke Sister Breast cancer Surgical History Surgical History Hx laparoscopic cholecystectomy H/O colonoscopy S/P bilateral oophorectomy Social History Social History Household Members: Spouse Housing: House Do you presently have visiting nurse or other home services: No Alcohol intake: current Alcohol intake frequency: does not drink Patient Tobacco Use Status: Never used Tobacco e-Cigarette/Vaping Use: Never Used Second Hand Smoke Exposure: No service: No Current occupational status: retired Cognitive needs: No Hearing needs: No Vision needs: Yes Meds Allergies Allergy/AdvReac Type Severity Reaction Status Date / Time No Known Allergies Allergy Verified 06/20/24 13:45 Active Medications: Current Medications Acetaminophen (Acetaminophen 325 Mg Tablet) 650 mg PO Q6H PRN PRN Reason: Pain, Mild (Pain Scale 1-3), fever or headache Amlodipine Besylate (Amlodipine Besylate 5 Mg Tablet) 5 mg PO DAILY [facility]; Protocol Last Admin: 06/21/24 09:06 Dose: 5 mg Atorvastatin Calcium (Atorvastatin Calcium 10 Mg Tablet) 10 mg PO BEDTIME [facility] Last Admin: 06/20/24 21:09 Dose: 10 mg Calcium Carbonate (Calcium Carbonate 750 Mg Tab.Chew) 750 mg PO Q4H PRN PRN Reason: Heartburn Docusate Sodium (Docusate Sodium 100 Mg Capsule) 200 mg PO BEDTIME [facility] Last Admin: 06/20/24 21:09 Dose: 200 mg Enoxaparin Sodium (Enoxaparin Sodium 40 Mg/0.4 Ml Syringe) 40 mg SUBCUT Q24H [facility] Last Admin: 06/20/24 17:31 Dose: 40 mg Lactulose (Lactulose 20 Gm/30 Ml Solution) 20 gm PO DAILY PRN PRN Reason: Constipation Lisinopril (Lisinopril 20 Mg Tablet) 20 mg PO DAILY [facility]; Protocol Last Admin: 06/21/24 07:39 Dose: 20 mg Lorazepam (Lorazepam 0.5 Mg Tablet) 0.5 mg PO Q8H PRN PRN Reason: anxiety Last Admin: 06/20/24 15:05 Dose: 0.5 mg Magnesium Hydroxide (Milk Of Magnesia 30 Ml Oral.Susp) 30 ml PO DAILY PRN PRN Reason: Constipation Melatonin (Melatonin 3 Mg Tablet) 6 mg PO BEDTIME PRN PRN Reason: Insomnia Metoprolol Tartrate (Metoprolol Tartrate 50 Mg Tablet) 50 mg PO BID [facility]; Protocol Last Admin: 06/21/24 07:39 Dose: 50 mg Morphine Sulfate (Morphine Sulfate 4 Mg/Ml Cartridge) 4 mg IVPUSH Q4H PRN; Protocol PRN Reason: Pain, Severe (Pain Scale 7-10) Last Admin: 06/19/24 01:34 Dose: 4 mg Ondansetron HCl (Ondansetron Hcl 4 Mg/2 Ml Vial) 4 mg IVPUSH Q8H PRN PRN Reason: Nausea and Vomiting Last Admin: 06/18/24 21:09 Dose: 4 mg Oxycodone HCl (Oxycodone Hcl Immed Release 5 Mg Tablet) 5 mg PO Q6H PRN PRN Reason: Pain, Moderate(Pain Scale 4-6) Last Admin: 06/18/24 11:52 Dose: 5 mg Polyethylene Glycol (Polyethylene Glycol 3350 17 Gm Powd.Pack) 17 gm PO DAILY PRN PRN Reason: Constipation Sodium Chloride (0.9 % Sodium Chloride Flush 3 Ml Syringe) [facility] Last Admin: 06/21/24 07:40 Dose: 3 ml Home Medications ?Medication ?Instructions ?Recorded ?Confirmed ?Last Taken ?Type propranolol 10 mg tablet 10 mg PO DAILY PRN anxiety 06/17/24 06/17/24 Unknown History Physical Exam Vital Signs: Vital Signs: Last Vital Signs Temp 97.7 F 06/21/24 07:29 Pulse 84 06/21/24 07:29 Resp 16 06/21/24 07:29 BP 180/77 H 06/21/24 09:06 Pulse Ox 94 06/21/24 07:29 O2 Del Method Room Air 06/21/24 07:29 O2 Flow Rate 2 06/19/24 19:48 BMI result Body Mass Index 28.3 Const: General: comfortable and no acute distress Orientation/consciousness: patient oriented x3 HEENT: Other: Unremarkable Head: Yes normal to inspection Neck: Neck: Yes normal visual inspection Chest: Chest palpation & inspection: normal inspection of the chest Resp: Auscultation: clear to auscultation bilaterally Cardio: Palpation: normal PMI Heart sounds: S1 normal heart sound present, S2 normal heart sound present, no gallops, no murmurs and no rubs GI: Palpation (GI): Soft to palpation Back/Spine/Pelvis: Other: unremarkable Skin: General skin exam: no rashes or lesions noted Neuro: General: patient oriented x3 Extrem: General: Yes normal to inspection Psych: Mental Status: mental status grossly normal Objective Labs and Meds 06/21/24 05:17 06/21/24 05:17 Lab results: Laboratory Results - last 24 hr 06/20/24 06/21/24 14:57 05:17 WBC 11.8 H RBC 3.96 L Hgb 11.9 L Hct 35.2 L MCV 88.9 MCH 30.1 MCHC 33.8 RDW 12.4 Plt Count 218 MPV 11.3 Absolute Nucleated RBC 0.000 Nucleated RBC % (auto) 0.0 Sodium 144 Potassium 3.4 Chloride 110 H Carbon Dioxide 26 Anion Gap 11 L BUN 14 Creatinine 0.74 Estim Creat Clear Calc 57.9 Estimated GFR > 60 Random Glucose 98 Calcium 8.5 Troponin I High Sens 9.0 D TSH 2.71 ECG Interpretation: EKGs reviewed. EKG from yesterday shows sinus tachycardia with nonspecific ST-T changes with some artifact. In 1 of the EKGs,-not seen and expanse but only a paper copy-, there is a narrow complex tachycardia in the 2nd half of the EKG. Not clear if it is atrial tachycardia or atrial flutter. Assessment and Plan (1) Atrial arrhythmia: Status: Acute (2) Preoperative cardiovascular examination: Status: Acute (3) Hypertension: Status: Acute Plan On review of EKGs, possible atrial tachycardia versus flutter. Others shows sinus tachycardia. Could have been from sympathetic surge from acute medical illness with components of anxiety. Continue beta-blockers. With regard to elevated blood pressure, could be related to acute issues. If it stays like this, may need additional medications. Unremarkable troponin. Hence there is no evidence of ACS. We will try to coordinate an echocardiogram but even otherwise, she will be able to proceed with the ERCP as that seems medically necessary at this time. Procedures Date of Service Date of Service: 06/21/24
--- NOTE | 2024-06-21 12:50 | HO.PM.IMPN ---
Subjective Subjective Date of Service: 06/21/24 Interval History: Being followed for gallstone pancreatitis, status post laparoscopic cholecystectomy NPO for ERCP Denies chest pain, no palpitations, no headache, no dizziness, good pain control at incision site Review of Systems All other system reviewed and are negative Physical Exam Vital Signs: Vital Signs: Last Vital Signs Temp 97.7 F 06/21/24 07:29 Pulse 84 06/21/24 07:29 Resp 16 06/21/24 07:29 BP 180/77 H 06/21/24 09:06 Pulse Ox 94 06/21/24 07:29 O2 Del Method Room Air 06/21/24 07:29 O2 Flow Rate 2 06/19/24 19:48 BMI result Body Mass Index 28.3 Const: Other: General resting comfortably in no acute distress. Moist mucous membranes Anicteric sclera Neck no JVD. CVS regular rate rhythm, Respiratory lungs clear to auscultation, no respiratory distress, no rhonchi. Gastrointestinal abdomen soft, mild incisional tenderness to palpation, bowel sounds audible, no guarding , no rigidity. Extremities no edema. Neuro non focal Skin no rash Psych appropriate affect Objective Data Active Medications Acetaminophen (Acetaminophen 325 Mg Tablet) 650 mg PO Q6H PRN PRN Reason: Pain, Mild (Pain Scale 1-3), fever or headache Amlodipine Besylate (Amlodipine Besylate 5 Mg Tablet) 5 mg PO DAILY [facility]; Protocol Last Admin: 06/21/24 09:06 Dose: 5 mg Documented By: CHAO Atorvastatin Calcium (Atorvastatin Calcium 10 Mg Tablet) 10 mg PO BEDTIME [facility] Last Admin: 06/20/24 21:09 Dose: 10 mg Documented By: GEORGE Calcium Carbonate (Calcium Carbonate 750 Mg Tab.Chew) 750 mg PO Q4H PRN PRN Reason: Heartburn Docusate Sodium (Docusate Sodium 100 Mg Capsule) 200 mg PO BEDTIME [facility] Last Admin: 06/20/24 21:09 Dose: 200 mg Documented By: GEORGE Enoxaparin Sodium (Enoxaparin Sodium 40 Mg/0.4 Ml Syringe) 40 mg SUBCUT Q24H [facility] Last Admin: 06/20/24 17:31 Dose: 40 mg Documented By: LUZ Lactulose (Lactulose 20 Gm/30 Ml Solution) 20 gm PO DAILY PRN PRN Reason: Constipation Lisinopril (Lisinopril 20 Mg Tablet) 20 mg PO DAILY [facility]; Protocol Last Admin: 06/21/24 07:39 Dose: 20 mg Documented By: CHAO Lorazepam (Lorazepam 0.5 Mg Tablet) 0.5 mg PO Q8H PRN PRN Reason: anxiety Last Admin: 06/20/24 15:05 Dose: 0.5 mg Documented By: CYN Magnesium Hydroxide (Milk Of Magnesia 30 Ml Oral.Susp) 30 ml PO DAILY PRN PRN Reason: Constipation Melatonin (Melatonin 3 Mg Tablet) 6 mg PO BEDTIME PRN PRN Reason: Insomnia Metoprolol Tartrate (Metoprolol Tartrate 50 Mg Tablet) 50 mg PO BID [facility]; Protocol Last Admin: 06/21/24 07:39 Dose: 50 mg Documented By: CHAO Morphine Sulfate (Morphine Sulfate 4 Mg/Ml Cartridge) 4 mg IVPUSH Q4H PRN; Protocol PRN Reason: Pain, Severe (Pain Scale 7-10) Last Admin: 06/19/24 01:34 Dose: 4 mg Documented By: GEORGE Ondansetron HCl (Ondansetron Hcl 4 Mg/2 Ml Vial) 4 mg IVPUSH Q8H PRN PRN Reason: Nausea and Vomiting Last Admin: 06/18/24 21:09 Dose: 4 mg Documented By: GEORGE Oxycodone HCl (Oxycodone Hcl Immed Release 5 Mg Tablet) 5 mg PO Q6H PRN PRN Reason: Pain, Moderate(Pain Scale 4-6) Last Admin: 06/18/24 11:52 Dose: 5 mg Documented By: JUVENTINO Polyethylene Glycol (Polyethylene Glycol 3350 17 Gm Powd.Pack) 17 gm PO DAILY PRN PRN Reason: Constipation Sodium Chloride (0.9 % Sodium Chloride Flush 3 Ml Syringe) 3 ml IVFLUSH [facility] Last Admin: 06/21/24 07:40 Dose: 3 ml Documented By: CHAO Labs 06/21/24 05:17 06/21/24 05:17 Labs: Laboratory Results - last 24 hr 06/20/24 06/21/24 14:57 05:17 MCV 88.9 MCH 30.1 MCHC 33.8 RDW 12.4 Plt Count 218 MPV 11.3 Absolute Nucleated RBC 0.000 Nucleated RBC % (auto) 0.0 Anion Gap 11 L Estim Creat Clear Calc 57.9 Estimated GFR > 60 Random Glucose 98 Calcium 8.5 Troponin I High Sens 9.0 D TSH 2.71 Assessment and Plan (1) Atrial arrhythmia: Status: Acute (2) S/P laparoscopic cholecystectomy: Status: Acute (3) Acute gallstone pancreatitis: Status: Acute Plan 74-year-old female with a PMH significant for?HTN, HLD, cholelithiasis, pancreatitis, and bilateral oophorectomy who presents to the ED with?epigastric abdominal pain radiating to back with nausea and vomiting since this morning. Pt will be admitted to the hospital for treatment and further evaluation of acute pancreatitis likely secondary to gallstone. Acute gallstone pancreatitis POD #2 s/p lap paxton with IOC showed two possible filling defects, therefore NPO for ERCP. Postoperatively good pain control LFTs trending down/lipase improved from 792 to 373 Continue analgesics, WBC trending down, no sepsis noted Surgery recommend to advance diet as tolerated Sinus tachycardia/atrial tachycardia Patient went for ERCP yesterday but procedure canceled since noted to tachycardia, sinus versus atrial tachycardia versus atrial flutter Patient felt overwhelmed in OR and felt anxious and strongly feels tachycardia related to that TSH 2.71, normal troponin Echo showed preserved EF, inferolateral hypokinesis , no chest pain Seen by Dr. Stevens he recommend metoprolol 50 b.i.d. for possible atrial tachycardia versus flutter, EKG showed sinus tachycardia, question sympathetic surge from acute medical illness with component of anxiety Hypertensive urgency Lisinopril dose increased to 20 mg, added amlodipine and metoprolol 50 b.i.d. Discontinued propranolol as needed for anxiety Monitor BP closely and uptitrate dose of amlodipine as needed HLD Continue statin Full Code DVT Prophylaxis: Lovenox Pt will require continued inpatient hospitalization for postoperative management of cholecystectomy and for ERCP . Quality Stroke Does the patient have a stroke diagnosis?: No VTE Prior VTE?: No VTE Risk Level:: Medical - moderate - high VTE Device Contraindication: Treatment Not Indicated VTE Drug Contraindication: N/A - Med Ordered
--- NOTE | 2024-06-21 13:44 | P.CONAN_ITS ---
HPI - Anesthesia Eval Consult details Narrative: 74 yo F presenting for ERCP. Procedure was cancelled yesterday due to tachycardia; cardiology was consulted and echo performed today. [facility] Active Problems Active Problems: All Active Problems Preoperative cardiovascular examination (Acute) Atrial arrhythmia (Acute) S/P laparoscopic cholecystectomy (Acute) Acute gallstone pancreatitis (Acute) Acute pancreatitis (Acute) Familial hypercholesterolemia (Acute) Anxiety (Acute) S/P bilateral oophorectomy (Acute) Cholelithiasis (Acute) Hypertension (Acute) Past Medical History Medical History Familial hypercholesterolemia Anxiety Hypertension Cholelithiasis Family History Family History Mother Lung cancer Father Stroke Sister Breast cancer Family history of problems with anesthesia: No Surgical History Surgical History Hx laparoscopic cholecystectomy H/O colonoscopy S/P bilateral oophorectomy History of Problems with Anesthesia: No Social History Social History Household Members: Spouse Housing: House Do you presently have visiting nurse or other home services: No Alcohol intake: current Alcohol intake frequency: does not drink Patient Tobacco Use Status: Never used Tobacco e-Cigarette/Vaping Use: Never Used Second Hand Smoke Exposure: No service: No Current occupational status: retired Cognitive needs: No Hearing needs: No Vision needs: Yes Meds Allergies Allergy/AdvReac Type Severity Reaction Status Date / Time No Known Allergies Allergy Verified 06/20/24 13:45 Active Medications: Current Medications Acetaminophen (Acetaminophen 325 Mg Tablet) 650 mg PO Q6H PRN PRN Reason: Pain, Mild (Pain Scale 1-3), fever or headache Amlodipine Besylate (Amlodipine Besylate 5 Mg Tablet) 5 mg PO DAILY [facility]; Protocol Last Admin: 06/21/24 09:06 Dose: 5 mg Atorvastatin Calcium (Atorvastatin Calcium 10 Mg Tablet) 10 mg PO BEDTIME [facility] Last Admin: 06/20/24 21:09 Dose: 10 mg Calcium Carbonate (Calcium Carbonate 750 Mg Tab.Chew) 750 mg PO Q4H PRN PRN Reason: Heartburn Docusate Sodium (Docusate Sodium 100 Mg Capsule) 200 mg PO BEDTIME [facility] Last Admin: 06/20/24 21:09 Dose: 200 mg Enoxaparin Sodium (Enoxaparin Sodium 40 Mg/0.4 Ml Syringe) 40 mg SUBCUT Q24H [facility] Last Admin: 06/20/24 17:31 Dose: 40 mg Lactated Ringer's (Lr) 1,000 mls @ 80 mls/hr IVCONT .[id number] [facility] Lactulose (Lactulose 20 Gm/30 Ml Solution) 20 gm PO DAILY PRN PRN Reason: Constipation Lisinopril (Lisinopril 20 Mg Tablet) 20 mg PO DAILY [facility]; Protocol Last Admin: 06/21/24 07:39 Dose: 20 mg Lorazepam (Lorazepam 0.5 Mg Tablet) 0.5 mg PO Q8H PRN PRN Reason: anxiety Last Admin: 06/20/24 15:05 Dose: 0.5 mg Magnesium Hydroxide (Milk Of Magnesia 30 Ml Oral.Susp) 30 ml PO DAILY PRN PRN Reason: Constipation Melatonin (Melatonin 3 Mg Tablet) 6 mg PO BEDTIME PRN PRN Reason: Insomnia Metoprolol Tartrate (Metoprolol Tartrate 50 Mg Tablet) 50 mg PO BID [facility]; Protocol Last Admin: 06/21/24 07:39 Dose: 50 mg Morphine Sulfate (Morphine Sulfate 4 Mg/Ml Cartridge) 4 mg IVPUSH Q4H PRN; Protocol PRN Reason: Pain, Severe (Pain Scale 7-10) Last Admin: 06/19/24 01:34 Dose: 4 mg Ondansetron HCl (Ondansetron Hcl 4 Mg/2 Ml Vial) 4 mg IVPUSH Q8H PRN PRN Reason: Nausea and Vomiting Last Admin: 06/18/24 21:09 Dose: 4 mg Oxycodone HCl (Oxycodone Hcl Immed Release 5 Mg Tablet) 5 mg PO Q6H PRN PRN Reason: Pain, Moderate(Pain Scale 4-6) Last Admin: 06/18/24 11:52 Dose: 5 mg Polyethylene Glycol (Polyethylene Glycol 3350 17 Gm Powd.Pack) 17 gm PO DAILY PRN PRN Reason: Constipation Sodium Chloride (0.9 % Sodium Chloride Flush 3 Ml Syringe) 3 ml IVFLUSH [facility]SHIFT [facility] Last Admin: 06/21/24 07:40 Dose: 3 ml Home Medications ?Medication ?Instructions ?Recorded ?Confirmed ?Last Taken ?Type propranolol 10 mg tablet 10 mg PO DAILY PRN anxiety 06/17/24 06/17/24 Unknown History Exam Exam Date and Time: 06/21/24 1350 Height,Weight and Vital Signs: Height 5 ft 1 in Weight 68.039 kg Last Vital Signs Temp 99.5 F 06/21/24 13:33 Pulse 81 06/21/24 13:38 Resp 16 06/21/24 13:33 BP 169/65 H 06/21/24 13:38 Pulse Ox 94 06/21/24 13:33 O2 Del Method Room Air 06/21/24 13:33 O2 Flow Rate 2 06/19/24 19:48 Pertinent Lab Results Pertinent Lab Results: Laboratory Tests 06/17/24 06/17/24 06/18/24 12:32 13:59 05:08 WBC 15.1 H RBC 5.00 Hgb 15.3 Hct 45.2 MCV 90.4 MCH 30.6 MCHC 33.8 RDW 12.3 Plt Count 290 MPV 10.8 Immature Gran % (Auto) 0.2 Neut % (Auto) 77.1 H Lymph % (Auto) 16.9 L Lyman % (Auto) 4.7 Eos % (Auto) 0.5 Baso % (Auto) 0.6 Lymph # (Auto) 2.5 Lyman # (Auto) 0.7 Eos # (Auto) 0.1 Baso # (Auto) 0.1 Abs Immat Gran (auto) 0.03 Absolute Neuts (auto) 11.6 H Absolute Nucleated RBC 0.000 Nucleated RBC % (auto) 0.0 Sodium 144 143 Potassium 3.8 4.0 Chloride 111 H 111 H Carbon Dioxide 26 23 Anion Gap 11 L 13 BUN 24 H 28 H Creatinine 1.02 0.95 Estim Creat Clear Calc 42.0 45.1 Estimated GFR 53 57 Random Glucose 145 H 152 H Lactic Acid 1.6 Calcium 8.9 D 8.8 Magnesium 1.9 Total Bilirubin 0.9 0.6 Direct Bilirubin AST 398 H 160 H ALT 354 H 282 H Alkaline Phosphatase 89 77 Troponin I High Sens Total Protein 6.3 L 5.8 L Albumin 3.9 3.7 Triglycerides 96 Lipase > 3000 H 792 H TSH Urine Color Yellow Urine Appearance Clear Urine pH 5.0 Ur Specific [place] 1.015 Urine Protein Negative Urine Glucose (UA) Negative Urine Ketones Negative Urine Blood Negative Urine Nitrite Negative Ur Leukocyte Esterase Trace H Urine RBC 0-2 Urine WBC 0-5 Ur Squamous Epith Cells 0-2 Urine Bacteria None Seen Hyaline Casts 0-2 Influenza Type A (PCR) NEGATIVE Influenza Type B (PCR) NEGATIVE RSV RNA Qual (PCR) NEGATIVE SARS-CoV-2 RNA (RT-PCR) NEGATIVE 06/19/24 06/20/24 06/20/24 05:39 05:10 14:57 WBC 12.7 H RBC 3.81 L D Hgb 11.6 L D Hct 34.5 L D MCV 90.6 MCH 30.4 MCHC 33.6 RDW 12.6 Plt Count 184 D MPV 11.2 Immature Gran % (Auto) Neut % (Auto) Lymph % (Auto) Lyman % (Auto) Eos % (Auto) Baso % (Auto) Lymph # (Auto) Lyman # (Auto) Eos # (Auto) Baso # (Auto) Abs Immat Gran (auto) Absolute Neuts (auto) Absolute Nucleated RBC 0.000 Nucleated RBC % (auto) 0.0 Sodium 145 Potassium 3.9 Chloride 109 H Carbon Dioxide 28 Anion Gap 12 BUN 13 Creatinine 0.72 Estim Creat Clear Calc 59.5 Estimated GFR > 60 Random Glucose 128 H Lactic Acid Calcium 8.3 L Magnesium Total Bilirubin 0.8 Direct Bilirubin 0.4 AST 76 H ALT 120 H Alkaline Phosphatase 63 Troponin I High Sens 9.0 D Total Protein 5.7 L Albumin 3.2 L Triglycerides Lipase 373 H TSH Urine Color Urine Appearance Urine pH Ur Specific [place] Urine Protein Urine Glucose (UA) Urine Ketones Urine Blood Urine Nitrite Ur Leukocyte Esterase Urine RBC Urine WBC Ur Squamous Epith Cells Urine Bacteria Hyaline Casts Influenza Type A (PCR) Influenza Type B (PCR) RSV RNA Qual (PCR) SARS-CoV-2 RNA (RT-PCR) 06/21/24 05:17 WBC 11.8 H RBC 3.96 L Hgb 11.9 L Hct 35.2 L MCV 88.9 MCH 30.1 MCHC 33.8 RDW 12.4 Plt Count 218 MPV 11.3 Immature Gran % (Auto) Neut % (Auto) Lymph % (Auto) Lyman % (Auto) Eos % (Auto) Baso % (Auto) Lymph # (Auto) Lyman # (Auto) Eos # (Auto) Baso # (Auto) Abs Immat Gran (auto) Absolute Neuts (auto) Absolute Nucleated RBC 0.000 Nucleated RBC % (auto) 0.0 Sodium 144 Potassium 3.4 Chloride 110 H Carbon Dioxide 26 Anion Gap 11 L BUN 14 Creatinine 0.74 Estim Creat Clear Calc 57.9 Estimated GFR > 60 Random Glucose 98 Lactic Acid Calcium 8.5 Magnesium Total Bilirubin Direct Bilirubin AST ALT Alkaline Phosphatase Troponin I High Sens Total Protein Albumin Triglycerides Lipase TSH 2.71 Urine Color Urine Appearance Urine pH Ur Specific [place] Urine Protein Urine Glucose (UA) Urine Ketones Urine Blood Urine Nitrite Ur Leukocyte Esterase Urine RBC Urine WBC Ur Squamous Epith Cells Urine Bacteria Hyaline Casts Influenza Type A (PCR) Influenza Type B (PCR) RSV RNA Qual (PCR) SARS-CoV-2 RNA (RT-PCR) Airway Mallampati Class: III (small mouth) TM Dist: >3cm Neck ROM: Full Loose/Missing/Broken Teeth: No (patient denies any loose or broken teeth) Heart: S1S2 Lungs: CTAB Assessment and Plan Assessment Anesthesia Assessment: Anesthesia Plan Discussed and Chart Reviewed Final Anesthetic Review Family History of Problems with Anesthesia: No History of Problems with Anesthesia: No NPO: Yes ASA Class: II Final Preanesthetic Review: No Changes in Pt Med Stat, Meds/Allgs Chart Reviewed, Consent Obtained/Reviewed and Anes Risks/Benef Reviewed Patient Risk: Low Procedure Risk: Low Anesthetic Plan Anesthetic Plan: GA and Agree w/ Assess. and Plan Disposition: Standard PACU
[2024-06-21] MEDS: Lactated Ringers 1,000 ML 80 ML IVCONT (13:47)
--- NOTE | 2024-06-21 14:11 | P.PNGI_ITS ---
Subjective Subjective Date of Service: 06/21/24 Interval History: no further palptns mild abdominal pain no chest pain trop neg Critical Care Time (minutes): 0 Physical Exam 2 Vital Signs: Vital Signs: Last Vital Signs Temp 99.5 F 06/21/24 13:33 Pulse 81 06/21/24 13:38 Resp 16 06/21/24 13:33 BP 169/65 H 06/21/24 13:38 Pulse Ox 94 06/21/24 13:33 O2 Del Method Room Air 06/21/24 13:33 O2 Flow Rate 2 06/19/24 19:48 BMI result Body Mass Index 28.3 EXAM: GENERAL: The patient is well developed and nontoxic. VITAL SIGNS:see workflow HEENT: Nonicteric sclerae, PERRLA, EOMI. Oropharynx clear. Moist mucous membranes. Conjunctivae appear well perfused. No thyroid mass. CHEST: Chest wall is nontender. HEART: Regular rate and rhythm without murmurs. LUNGS: Clear to auscultation bilaterally. ABDOMEN: Soft, positive bowel sounds, nontender, no organomegaly.no flank tenderness SKIN: No rash, no excessive bruising, petechiae, or purpura. NEUROLOGIC: Cranial nerves II-XII intact without motor/sensory deficit. Psych: normal affect Objective Data Labs 06/21/24 05:17 06/21/24 05:17 Labs: Laboratory Results - last 24 hr 06/20/24 06/21/24 14:57 05:17 WBC 11.8 H RBC 3.96 L Hgb 11.9 L Hct 35.2 L MCV 88.9 MCH 30.1 MCHC 33.8 RDW 12.4 Plt Count 218 MPV 11.3 Absolute Nucleated RBC 0.000 Nucleated RBC % (auto) 0.0 Sodium 144 Potassium 3.4 Chloride 110 H Carbon Dioxide 26 Anion Gap 11 L BUN 14 Creatinine 0.74 Estim Creat Clear Calc 57.9 Estimated GFR > 60 Random Glucose 98 Calcium 8.5 Troponin I High Sens 9.0 D TSH 2.71 Microbiology Microbiology Results: Microbiology 06/17/24 15:37 Blood - Venous Blood Culture - Preliminary No growth after 48 hours. 06/17/24 15:37 Blood - Venous Blood Culture - Preliminary No growth after 48 hours. Procedures Date of Service Date of Service: 06/21/24 Progress Note: A&P Assessment and plan (1) S/P laparoscopic cholecystectomy: Status: Acute Plan 1/ choledocholithiasis on IOC, stable, PLAN: 1/ Plan for ERCP today, no further palpnts, cardiology assessed Time Spent With Patient Time: Total time managing care of this patient today ____ minutes. Quality Stroke Does the patient have a stroke diagnosis?: No VTE Prior VTE?: No VTE Risk Level:: Medical - moderate - high VTE Device Contraindication: Treatment Not Indicated VTE Drug Contraindication: N/A - Med Ordered
--- NOTE | 2024-06-21 14:13 | MHC.SHP ---
Pre-Procedural Eval Section A - 24 Hr Update-Section A only Date of Service: 06/21/24 The patient is an INPATIENT: Yes The patient has been examined within 24 hours of the surgical procedure. The History & Physical has been completed within 30 days and I have reviewed it.: Yes Section B - Complete if H&P > 30 days Chief Complaint: Acute Pancreatitis Allergies: Allergies Allergy/AdvReac Type Severity Reaction Status Date / Time No Known Allergies Allergy Verified 06/20/24 13:45 Plan Diagnosis/Plan: Unchanged I have reviewed the history and physical and performed a pertinent physical examination on my patient. No changes have occurred unless specified. ERCP Time Spent With Patient Time: Total time managing care of this patient today ____ minutes.
--- NOTE | 2024-06-21 14:58 | W.PM.OPN ---
Operative Note Operative Note Date of Service: 06/21/24 Narrative: Description:?Endoscopic retrograde cholangiopancreatography (ERCP) PROCEDURE:?Endoscopic retrograde cholangiopancreatography with sphincterotomy and stone extraction, intra op cholangiogram and interpretation INDICATION FOR THE PROCEDURE:?Patient with a history of choledocholithiasis noted on IOC at time of cholecystectomy MEDICATIONS:?General anesthesia. Indomethacin 100 mg HI. The risks of the procedure were made aware to the patient and consisted of medication reaction, bleeding, perforation, aspiration, and post ERCP pancreatitis. DESCRIPTION OF PROCEDURE:?After informed consent and appropriate sedation, the duodenoscope was inserted into the oropharynx, down the esophagus, and into the stomach. The scope was then advanced through the pylorus to the ampulla. The CBD was immediately entered with the wire and placement confirmed with cholangiogram. x2 filling defects were noted in the distal CBD. A sphincterotomy was performed and a stone popped out rigth at the ampulla. An extraction balloon was then swept up and down the duct and a second yellow greenish stone was removed. An occlusion cholangiogram was performed and no filling defects were noted. FINDINGS: 1. choledocholithiasis RECOMMENDATIONS: 1. clears today and advance diet as tolerated over next 24 hrs
[2024-06-21] MEDS: Enoxaparin Sodium 40 MG/0.4 ML SYRINGE SUBCUT (17:36)
[2024-06-21] MEDS: Docusate Sodium 100 MG CAPSULE 200 MG PO (20:53)
[2024-06-21] MEDS: Atorvastatin Calcium 10 MG TABLET PO (20:53)
[2024-06-22 03:26] VITALS: BP 156/65; PULSE 67; RESP 18; TEMP 36.4; O2SAT 96
[2024-06-22] MEDS: Lactated Ringers 1,000 ML 80 ML IVCONT (04:24)
[2024-06-22 07:20] VITALS: BP 170/78; PULSE 80; RESP 16; TEMP 36.8; O2SAT 96
[2024-06-22] MEDS: Metoprolol Tartrate 50 MG TABLET PO (08:00)
[2024-06-22] MEDS: amLODIPine Besylate 5 MG TABLET PO (08:00)
[2024-06-22] MEDS: lisinopriL 20 MG TABLET PO (08:01)
--- NOTE | 2024-06-22 08:33 | PM.PNGS ---
Subjective Subjective Date of Service: 06/22/24 Interval history: Feels well this morning. Minimal incisional pain. Tolerating clear liquids and feels hungry. Physical Exam Vital Signs: Vital Signs: Last Vital Signs Temp 98.2 F 06/22/24 07:20 Pulse 80 06/22/24 07:20 Resp 16 06/22/24 07:20 BP 170/78 H 06/22/24 07:20 Pulse Ox 96 06/22/24 07:20 O2 Del Method Room Air 06/22/24 07:20 O2 Flow Rate 4 06/21/24 15:18 BMI result Body Mass Index 28.3 Const: General: comfortable, no acute distress and alert Resp: Effort & Inspection: normal respiratory effort GI: Inspection: No distended and Yes incision (clean) Palpation (GI): Soft to palpation and Tenderness to palpation present (GI) (mild incisional pain ) Skin: General skin exam: no rashes or lesions noted and no jaundice Objective Data Active Medications Acetaminophen (Acetaminophen 325 Mg Tablet) 650 mg PO Q6H PRN PRN Reason: Pain, Mild (Pain Scale 1-3), fever or headache Amlodipine Besylate (Amlodipine Besylate 5 Mg Tablet) 5 mg PO DAILY [facility]; Protocol Last Admin: 06/22/24 08:00 Dose: 5 mg Documented By: CHAO Atorvastatin Calcium (Atorvastatin Calcium 10 Mg Tablet) 10 mg PO BEDTIME [facility] Last Admin: 06/21/24 20:53 Dose: 10 mg Documented By: STALIN Calcium Carbonate (Calcium Carbonate 750 Mg Tab.Chew) 750 mg PO Q4H PRN PRN Reason: Heartburn Docusate Sodium (Docusate Sodium 100 Mg Capsule) 200 mg PO BEDTIME [facility] Last Admin: 06/21/24 20:53 Dose: 200 mg Documented By: STALIN Enoxaparin Sodium (Enoxaparin Sodium 40 Mg/0.4 Ml Syringe) 40 mg SUBCUT Q24H [facility] Last Admin: 06/21/24 17:36 Dose: 40 mg Documented By: CHAO Lactated Ringer's (Lr) 1,000 mls @ 80 mls/hr IVCONT .[id number] [facility] Last Admin: 06/22/24 04:24 Dose: 80 mls/hr Documented By: STALIN Lactulose (Lactulose 20 Gm/30 Ml Solution) 20 gm PO DAILY PRN PRN Reason: Constipation Lisinopril (Lisinopril 20 Mg Tablet) 20 mg PO DAILY [facility]; Protocol Last Admin: 06/22/24 08:01 Dose: 20 mg Documented By: CHAO Lorazepam (Lorazepam 0.5 Mg Tablet) 0.5 mg PO Q8H PRN PRN Reason: anxiety Last Admin: 06/20/24 15:05 Dose: 0.5 mg Documented By: CYN Magnesium Hydroxide (Milk Of Magnesia 30 Ml Oral.Susp) 30 ml PO DAILY PRN PRN Reason: Constipation Melatonin (Melatonin 3 Mg Tablet) 6 mg PO BEDTIME PRN PRN Reason: Insomnia Metoprolol Tartrate (Metoprolol Tartrate 50 Mg Tablet) 50 mg PO BID [facility]; Protocol Last Admin: 06/22/24 08:00 Dose: 50 mg Documented By: CHAO Morphine Sulfate (Morphine Sulfate 4 Mg/Ml Cartridge) 4 mg IVPUSH Q4H PRN; Protocol PRN Reason: Pain, Severe (Pain Scale 7-10) Last Admin: 06/19/24 01:34 Dose: 4 mg Documented By: GEORGE Naloxone HCl (Naloxone Hcl 0.4 Mg/Ml Vial) 0.04 mg IVPUSH Q5M PRN PRN Reason: Excessive sedation or RR < 8 Ondansetron HCl (Ondansetron Hcl 4 Mg/2 Ml Vial) 4 mg IVPUSH Q8H PRN PRN Reason: Nausea and Vomiting Last Admin: 06/18/24 21:09 Dose: 4 mg Documented By: GEORGE Oxycodone HCl (Oxycodone Hcl Immed Release 5 Mg Tablet) 5 mg PO Q6H PRN PRN Reason: Pain, Moderate(Pain Scale 4-6) Last Admin: 06/18/24 11:52 Dose: 5 mg Documented By: JUVENTINO Polyethylene Glycol (Polyethylene Glycol 3350 17 Gm Powd.Pack) 17 gm PO DAILY PRN PRN Reason: Constipation Sodium Chloride (0.9 % Sodium Chloride Flush 3 Ml Syringe) [facility] Last Admin: 06/22/24 08:00 Dose: Not Given Documented By: CHAO Non-Admin Reason: IV Running Labs 06/21/24 05:17 06/21/24 05:17 Procedures Date of Service Date of Service: 06/22/24 Progress Note: A&P Assessment and plan (1) S/P laparoscopic cholecystectomy: Status: Acute (2) Acute gallstone pancreatitis: Status: Acute Plan POD #3 s/p lap paxton with IOC for gallstone pancreatitis. Cholangiogram showed two possible filling defects. now s/p ERCP sphincterotomy and stone extraction, intra op cholangiogram and interpretation. Doing well from surgical standpoint, pain minimal and abd benign with clean incisions. Advance diet. Home if tolerating. F/u in office in 1 week. Time Spent With Patient Time: Total time managing care of this patient today ____ minutes. Quality Stroke Does the patient have a stroke diagnosis?: No VTE Prior VTE?: No VTE Risk Level:: Medical - moderate - high VTE Device Contraindication: Treatment Not Indicated VTE Drug Contraindication: N/A - Med Ordered
[2024-06-22 10:32] VITALS: BP 170/78; PULSE 80; O2SAT 96
--- NOTE | 2024-06-22 10:32 | HO.POSTANES ---
Post Anesthesia Evaluation Post Anesthesia Evaluation Date of Service: 06/22/24 Vital Signs: Vital Signs Temp Pulse Resp BP Pulse Ox O2 Del Method 06/22/24 07:20 98.2 F 80 16 170/78 H 96 Room Air 06/22/24 03:26 97.6 F 67 18 156/65 H 96 Room Air Anesthesia: General Endotracheal-GETA Mental Status: Awake Pain Control: Satisfactory Nausea/Vomiting: None Hydration: Adequate Anesthesia-Related Issues: No Anes. Related Issues
[2024-06-22 13:25] VITALS: O2SAT 97
--- NOTE | 2024-06-22 13:28 | P.DS_ITS ---
DS: Providers Provider Date of Service: 06/22/24 Date of admission: 06/17/24 17:07 Date of discharge: 06/22/24 Primary care physician: Prince Esposito MD Consults: 06/17/24 17:40 Consult to General Surgery Routine Consulting Provider: [facility] Reason for consultation: Acute pancreatitis likely secondary to gallstone 06/19/24 15:53 Consult to Gastroenterology Routine Consulting Provider: Yasmin Feliciano Reason for consultation: CBD stone on IOC Has provider been notified: No 06/20/24 14:28 Consult to Cardiology Routine Consulting Provider: [facility] Reason for consultation: tachycardia Has provider been notified: No DS: Diagnosis Discharge Diagnosis (1) S/P laparoscopic cholecystectomy: Status: Acute (2) Acute gallstone pancreatitis: Status: Acute (3) Cholelithiasis: Status: Acute (4) Atrial arrhythmia: Status: Acute (5) Hypertension: Status: Acute DS: Summary Hospital Course Hospital Course: From the history and physical by the admitting hospitalist, SURESH Sutton, 06/17/24: Pt is a 74-year-old female with a PMH significant for?HTN, HLD, cholelithiasis, pancreatitis, and bilateral oophorectomy who presents to the ED with?epigastric abdominal pain radiating to back with nausea and vomiting since this morning. Patient reports last night it a ?greasy? meal including pizza and a glass of wine. Had a brief ?gallbladder attack? last night that lasted for less than 15 minutes with sharp and shooting RUQ pain. Symptoms then subsided. This morning after breakfast patient experienced significant increase in symptoms, including intense, constant epigastric pain radiating to back and multiple episodes of nausea and vomiting. No fever, chills. Denies chest pain/pressure, palpitations. No shortness a breath or difficulty breathing. Of note, patient had similar episode in 11/20/2022 when she was admitted to the hospital for acute pancreatitis possibly secondary to a passed gallstone. She followed up with GI and decided against cholecystectomy at this time as her gallbladder was not bothering her. Patient also followed up for incidental findings of adnexal mass and had bilateral oophorectomy where mass was determined to be benign. In the ED pt was hypertensive up to 195/74 vitals otherwise stable and WNL. Labs were significant for leukocytosis of 15.1, AST 398, ALT 354, lipase >3000. No significant electrolyte abnormalities. Stable H&H P. Renal function baseline. UA negative. Negative for flu, RSV, and COVID. CT?abdomen and pelvis found peripancreatic fluid and fat stranding surrounding the entire pancreatitis had, body, and tail consistent with acute pancreatitis and secondary likely duodenitis. Pt was treated with ondansetron, Protonix, IVF, and ceftriaxone. Pt will be admitted to the hospital for treatment and further evaluation of acute pancreatitis likely secondary to gallstone. She was admitted to the medical-surgical unit. General Surgery was consulted and she underwent laparoscopic cholecystectomy by Dr Franco Garcia on 06/19/24. IOC showed 2 possible filling deficits, so Gastroenterology was consulted. She underwent ERCP on 06/21/[address] Yasmin Feliciano. A sphincterotomy was performed and a stone popped out at the ampulla. Balloon swepping yielded a second stone. There were no filling defects on a subsequent occlusion cholangiogram. Preoperatively, she did develop marked tachycardia, which prompted cardiac workup. Echocardiogram showed preserved EF and inferolateral hypokinesis. She was seen by Dr Jaskaran Stevens and started on metoprolol tartrate for possible atrial tachycrdia versus flutter, likely sympathetic surge from acute medical illness. For hypertension, amlodipine was added to lisinopril and metoprolol as above [to replace propranolol, which she was taking prn anxiety]. She did will after the ERCP and was tolerating diet without any abdominal pain. She was discharged home with instructions to follow up with Primary Care, General Surgery, and Cardiology. Time Attestation Discharge Coordination Time (in mins): 45 Quality: Safe Use of Opioids Does Pt have an Active Cancer Diagnosis on the Problem List?: No Quality: Stroke Does the patient have a stroke diagnosis?: No Physical Exam Vital Signs: Vital Signs: Last Vital Signs Temp 98.2 F 06/22/24 07:20 Pulse 80 06/22/24 10:32 Resp 16 06/22/24 07:20 BP 170/78 H 06/22/24 10:32 Pulse Ox 97 06/22/24 13:25 O2 Del Method Room Air 06/22/24 13:25 O2 Flow Rate 4 06/21/24 15:18 BMI result Body Mass Index 28.3 Gen: in no acute distress HEENT: sclera anicteric, moist mucus membranes Neck: supple Lungs: clear to auscultation bilaterally Heart: regular rate and rhythm, no murmurs Abd: soft, non-tender, non-distended, laparoscopic incisions with clean/dry Steri-strips Ext: no edema Skin: warm/well-perfused Neuro: alert and oriented x3, no focal findings Psych: appropriate affect DS: Data Data Completed and Pending Completed studies during hospitalization [Text1]: Laboratory Results WBC 11.8 X10*3/uL (4.8-10.8) H 06/21/24 05:17 RBC 3.96 X10*6/uL (4.20-5.50) L 06/21/24 05:17 Hgb 11.9 g/dl (12.0-16.0) L 06/21/24 05:17 Hct 35.2 % (37.0-47.0) L 06/21/24 05:17 MCV 88.9 fL (80.0-98.0) 06/21/24 05:17 MCH 30.1 pg (27.0-33.0) 06/21/24 05:17 MCHC 33.8 g/dl (31.0-35.0) 06/21/24 05:17 RDW 12.4 % (11.0-16.0) 06/21/24 05:17 Plt Count 218 X10*3/uL (160-400) 06/21/24 05:17 MPV 11.3 fL (9.4-12.3) 06/21/24 05:17 Immature Gran % (Auto) 0.2 % (0.0-0.4) 06/17/24 12:32 Neut % (Auto) 77.1 % (45-73) H 06/17/24 12:32 Lymph % (Auto) 16.9 % (20-40) L 06/17/24 12:32 [place] % (Auto) 4.7 % (2-11) 06/17/24 12:32 Eos % (Auto) 0.5 % (0-4) 06/17/24 12:32 Baso % (Auto) 0.6 % (0-2) 06/17/24 12:32 Lymph # (Auto) 2.5 X10*3/uL (1.2-4.9) 06/17/24 12:32 [place]eman # (Auto) 0.7 X10*3/uL (0.1-1.2) 06/17/24 12:32 Eos # (Auto) 0.1 X10*3/uL (0.0-0.4) 06/17/24 12:32 Baso # (Auto) 0.1 X10*3/uL (0.0-0.2) 06/17/24 12:32 Abs Immat Gran (auto) 0.03 X10*3/uL (0.00-0.03) 06/17/24 12:32 Absolute Neuts (auto) 11.6 x10*3/uL (2.0-8.3) H 06/17/24 12:32 Absolute Nucleated RBC 0.000 X10*3/uL (0.0-0.012) 06/21/24 05:17 Nucleated RBC % (auto) 0.0 /100WBC (0.0-0.2) 06/21/24 05:17 Sodium 144 mmol/L (135-145) 06/21/24 05:17 Potassium 3.4 mmol/L (3.3-5.1) 06/21/24 05:17 Chloride 110 mmol/L (96-108) H 06/21/24 05:17 Carbon Dioxide 26 mmol/L (22-29) 06/21/24 05:17 Anion Gap 11 (12-20) L 06/21/24 05:17 BUN 14 mg/dL (9-16) 06/21/24 05:17 Creatinine 0.74 mg/dL (0.5-1.4) 06/21/24 05:17 Estim Creat Clear Calc 57.9 06/21/24 05:17 Estimated GFR > 60 06/21/24 05:17 Random Glucose 98 mg/dL (60-115) 06/21/24 05:17 Lactic Acid 1.6 mmol/L (0.5-2.0) 06/17/24 12:32 Calcium 8.5 mg/dL (8.4-10.2) 06/21/24 05:17 Magnesium 1.9 mg/dL (1.6-2.6) 06/17/24 13:59 Total Bilirubin 0.8 mg/dL (0.0-1.0) 06/20/24 05:10 Direct Bilirubin 0.4 mg/dL (0.0-0.5) 06/20/24 05:10 AST 76 U/L (5-31) H 06/20/24 05:10 ALT 120 U/L (0-31) H 06/20/24 05:10 Alkaline Phosphatase 63 U/L (39-117) 06/20/24 05:10 Troponin I High Sens 9.0 ng/L (<3.5-17.0) D 06/20/24 14:57 Total Protein 5.7 g/dL (6.5-8.0) L 06/20/24 05:10 Albumin 3.2 g/dL (3.5-5.0) L 06/20/24 05:10 Triglycerides 96 mg/dL (<150) 06/17/24 13:59 Lipase 373 U/L (8-78) H 06/19/24 05:39 TSH 2.71 uIU/mL (0.32-4.0) 06/21/24 05:17 Urine Color Yellow 06/17/24 13:59 Urine Appearance Clear 06/17/24 13:59 Urine pH 5.0 (5.0-9.0) 06/17/24 13:59 Ur Specific [place] 1.015 (1.005-1.025) 06/17/24 13:59 Urine Protein Negative mg/dL (Neg-Trace) 06/17/24 13:59 Urine Glucose (UA) Negative mg/dL (Negative) 06/17/24 13:59 Urine Ketones Negative mg/dL (Negative) 06/17/24 13:59 Urine Blood Negative (Negative) 06/17/24 13:59 Urine Nitrite Negative (Negative) 06/17/24 13:59 Ur Leukocyte Esterase Trace (Negative) H 06/17/24 13:59 Urine RBC 0-2 /HPF (0-2) 06/17/24 13:59 Urine WBC 0-5 /HPF (0-5) 06/17/24 13:59 Ur Squamous Epith Cells 0-2 /HPF (0-2) 06/17/24 13:59 Urine Bacteria None Seen (None Seen) 06/17/24 13:59 Hyaline Casts 0-2 /LPF (0-2) 06/17/24 13:59 Influenza Type A (PCR) NEGATIVE (Negative) 06/17/24 12:32 Influenza Type B (PCR) NEGATIVE (Negative) 06/17/24 12:32 RSV RNA Qual (PCR) NEGATIVE (Negative) 06/17/24 12:32 SARS-CoV-2 RNA (RT-PCR) NEGATIVE (Negative) 06/17/24 12:32 Impressions Abdomen/Pelvis CT 06/17/24 14:40 IMPRESSION: 1. Peripancreatic fluid and fat stranding surrounding the entire pancreas head body and tail, most likely acute pancreatitis. No CT evidence of focal pancreatic necrosis, no thromboses or other complication, adjacent mild wall thickening and low attenuation of the duodenal wall probably sequela of secondary duodenitis. Please correlate with patient's clinical presentation, laboratory data amylase lipase. 2. Cholelithiasis. 3. Heavy sigmoid diverticulosis without CT evidence of acute diverticulitis. Electronically signed by: Chantelle Luu MD 06/17/2024 03:32 PM C-nario Abdomen Ultrasound 06/18/24 09:57 IMPRESSION: Cholelithiasis. No gallbladder wall thickening or pericholecystic fluid. Imaged portion of common bile duct measures 0.4 cm in diameter. This study was presented today to June 18, 2024 for interpretation. Stat results provided at this time as requested by referring provider. Electronically signed by: Charissa Anderson MD 06/18/2024 11:25 AM [employer] RP Labs on day of discharge: Preliminary micro results at discharge 06/17/24 15:37 Blood Culture - Preliminary Blood - Venous No growth after 48 hours. 06/17/24 15:37 Blood Culture - Preliminary Blood - Venous No growth after 48 hours. Discharge Plan Discharge Anticipated Discharge Date/Time: 06/22/24 13:20 Patient Disposition: Home, Self-Care Discharge Diagnosis: cholelithiasis gallstone pancreatitis atrial arrhythmia hypertension Referrals: Franco Garcia MD [Physician] - 1 Week Jaskaran Stevens MD [Physician] - 2 Weeks Prince Esposito MD [Primary Care Provider] - 1 Week Discharge Medications: New hydrocodone-acetaminophen 5-325 mg tablet 1 tab PO Q4-6H PRN (Reason: pain) Qty: 30 0RF Rx Instructions: Partial Fill upon patient request. amlodipine 5 mg Tablet 5 mg PO DAILY Qty: 30 0RF Protocol: Hold for SBP< HOLD for SBP < : 90 metoprolol tartrate 50 mg Tablet 50 mg PO BID Qty: 60 0RF Protocol: Hold for SBP/HR < HOLD for SBP < : 90 HOLD for HR < : 60 Continued atorvastatin 10 mg tablet 10 mg PO BEDTIME Qty: 90 1RF lisinopril 10 mg tablet 10 mg PO DAILY Qty: 90 1RF Discontinued propranolol 10 mg tablet 10 mg PO DAILY PRN (Reason: anxiety) Discharge Orders: Discharge Order (Routine); Ordered 06/22/24 Ordered By: Hailey Jasmine Diet: Advance to usual diet Activity on Discharge: No heavy lifting Stand Alone Forms: Patient Portal Discharge page Print Language: Yakut Activity Restrictions/Additional Instructions: Apply an ice pack for short intervals (20 minutes on, followed by at least 20 minutes off) for the first 2 days. Do not apply heat. Do not use creams, lotions, or topical antibiotics. These can cause infection or allergic reaction. Ok to shower 48 hours after your surgery. You have steri strips (small white cloth strips) covering your incision- these will fall off ~1 week. Follow up in office with Dr. Garcia in 1 week. ([phone]) No heavy lifting (>10lbs) or strenuous activity! Call Your Doctor If: -Your temperature exceeds 101.5? F -You experience excessive pain or swelling -You have an unexpected reaction to medication -You have excessive bleeding -You experience continued vomiting/nausea -Your incision begins to separate -Your incision shows signs of infection such as increased redness, swelling, excessive pain, drainage (light blood or clear fluid is normal) or heat Care Plan Goals: recovery from operation Health Concerns: cholelithiasis gallstone pancreatitis atrial arrhythmia hypertension Plan of Treatment: low-fat diet acetaminophen [Tylenol] [id number] for mild-moderate pain; hydrocodone- oxycodone [Percocet] for severe pain follow up with [facility] in 1 week; additional instructions as above add amlodipine 5 mg daily to lisinopril 10 mg daily; change propranolol to metoprolol tartrate 50 mg twice daily follow up with [facility] in 2 weeks Please follow up with your primary care doctor within 1 week. Return to the hospital if you experience recurrent or worsening symptoms. Assessment: See Discharge Summary.
--- NOTE | 2024-06-22 13:34 | MHC.CM.PN ---
DP: PT HAS BEEN MEDICALLY CLEARED FOR DC HOME, NO SERVICES. PT HAS OWN RIDE HOME.
--- NOTE | 2024-06-24 20:46 | PC.NURSE ---
Gave 5mg Oxycodne administered on 06/17/24 @ 1926 for pain management per patient request stating she didn't like how the morphine was making her feel.
== END 2024-06-22 13:55 | disposition home or self-care (01) | DRG 418 ==
LOC: HO.ED 16:47 → HO.EDOVER 17:46 → HO.S3 06-18 08:23
PROVIDERS: Hospitalist; Internal Medicine Gastroenterology; Nurse Practitioner Family; Student in an Organized Health Care Education/Training Program; Surgery; Admitting Provider Student in an Organized Health Care Education/Training Program; Emergency Provider Emergency Medicine; PCP Internal Medicine; Visit Provider Family Medicine
PROC: 0FT44ZZ Resection of Gallbladder, Percutaneous Endoscopic Approach (ICD-10-PCS; CPT 47562; principal; 2024-06-19 14:00)
PROC: 0FC98ZZ Extirpation of Matter from Common Bile Duct, Via Natural or Artificial Opening Endoscopic (ICD-10-PCS; CPT 43260; principal; 2024-06-21 16:30)
DX: K85.10 Biliary acute pancreatitis without necrosis or infection (principal); I47.19 Other supraventricular tachycardia; I48.92 Unspecified atrial flutter; K80.50 Calculus of bile duct without cholangitis or cholecystitis without obstruction; K82.8 Other specified diseases of gallbladder; I16.0 Hypertensive urgency; I10 Essential (primary) hypertension; E78.5 Hyperlipidemia, unspecified; Z20.822 Contact with and (suspected) exposure to COVID-19; Z79.899 Other long term (current) drug therapy
CPT/HCPCS: 0241U; 36415; 74177; 76705; 80048; 80053; 80076; 81001; 83605; 83690; 83735; 84443; 84478; 84484; 85025; 85027; 87040; 88304; 93005; 93306; 97161; 99285; J0131; J0690; J0696; J1100; J1171; J1610; J1650; J1920; J2003; J2270; J2371; J2405; J2470; J2704; J2795; J3010; J7120; Q9957; Q9967

== ENCOUNTER 2024-06-17 17:07 | Outpatient (BNV) | payer MEDICARE, OTHER, SELFPAY | END 2024-06-20 13:41 | PROVIDERS: Admitting Provider Student in an Organized Health Care Education/Training Program; Emergency Provider Emergency Medicine; PCP Internal Medicine; Visit Provider Internal Medicine | DX: R07.9 Chest pain, unspecified (principal) | CPT/HCPCS: 93010 ==

== ENCOUNTER 2024-06-17 17:07 | Outpatient (BNV) | payer MEDICARE, OTHER, SELFPAY | END 2024-06-21 07:00 | PROVIDERS: Admitting Provider Student in an Organized Health Care Education/Training Program; Emergency Provider Emergency Medicine; PCP Internal Medicine; Visit Provider Internal Medicine | DX: I35.8 Other nonrheumatic aortic valve disorders (principal); I34.81 Nonrheumatic mitral (valve) annulus calcification | CPT/HCPCS: 93306 ==

== ENCOUNTER → 2024-06-17 17:07 | Outpatient (BNV) | payer MEDICARE, OTHER, SELFPAY | PROVIDERS: Admitting Provider Student in an Organized Health Care Education/Training Program; Emergency Provider Emergency Medicine; PCP Internal Medicine; Visit Provider Internal Medicine Gastroenterology | DX: Z90.49 Acquired absence of other specified parts of digestive tract (principal) | CPT/HCPCS: 99223 ==

== ENCOUNTER → 2024-06-17 17:07 | Outpatient (BNV) | payer MEDICARE, OTHER, SELFPAY | PROVIDERS: Admitting Provider Student in an Organized Health Care Education/Training Program; Emergency Provider Emergency Medicine; PCP Internal Medicine; Visit Provider Surgery | DX: K85.10 Biliary acute pancreatitis without necrosis or infection (principal); Z90.49 Acquired absence of other specified parts of digestive tract | CPT/HCPCS: 47563; 99024; 99222; 99499 ==

== ENCOUNTER → 2024-06-17 17:07 | Outpatient (BNV) | payer MEDICARE, OTHER, SELFPAY | PROVIDERS: Admitting Provider Student in an Organized Health Care Education/Training Program; Emergency Provider Emergency Medicine; PCP Internal Medicine; Visit Provider Student in an Organized Health Care Education/Training Program | DX: K85.10 Biliary acute pancreatitis without necrosis or infection (principal); K80.20 Calculus of gallbladder without cholecystitis without obstruction; I49.8 Other specified cardiac arrhythmias; Z90.49 Acquired absence of other specified parts of digestive tract; I10 Essential (primary) hypertension | CPT/HCPCS: 99223; 99232; 99239 ==

== ENCOUNTER → 2024-06-17 17:07 | Outpatient (BNV) | payer MEDICARE, OTHER, SELFPAY | PROVIDERS: Admitting Provider Student in an Organized Health Care Education/Training Program; Emergency Provider Emergency Medicine; PCP Internal Medicine; Visit Provider Internal Medicine | DX: I49.8 Other specified cardiac arrhythmias (principal); Z01.810 Encounter for preprocedural cardiovascular examination; I10 Essential (primary) hypertension | CPT/HCPCS: 99223 ==

== ENCOUNTER 2024-07-02 08:28 | Outpatient (AMB) | payer MEDICARE, OTHER, SELFPAY ==
--- NOTE | 2024-07-02 08:32 | A.OFFVIS_ITS ---
Intake Visit Reasons: s/p lap paxton Intake Note: Patient here s/p laparoscopic cholecystectomy with cholangiogram. Reports incisions healing well. Patient c/o: no concerns. No longer taking rx pain meds. 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 She is doing well. She is tolerating a diet. He is having regular bowel habits. She is increasing her activity level. She has minimal incisional discomfort. [facility] Medical History (Updated 06/30/24 @ 00:02 by Nanda Alonso) Preoperative cardiovascular examination Familial hypercholesterolemia Anxiety Hypertension Cholelithiasis Surgical History (Updated 07/02/24 @ 08:38 by Franco Garcia MD) S/P laparoscopic cholecystectomy Hx laparoscopic cholecystectomy (06/19/24) H/O colonoscopy S/P bilateral oophorectomy Family History Mother Lung cancer Father Stroke Sister Breast cancer Social History Household Members: Spouse Housing: House Do you presently have visiting nurse or other home services: No Alcohol intake: current Alcohol intake frequency: does not drink Patient Tobacco Use Status: Never used Tobacco e-Cigarette/Vaping Use: Never Used Second Hand Smoke Exposure: No service: No Current occupational status: retired Cognitive needs: No Hearing needs: No Vision needs: Yes Physical Exam Eyes Other: Anicteric GI Other: Abdomen is soft, benign. All wounds clean dry and intact healing well Assessment & Plan Assessment & Plan (1) Status post laparoscopic cholecystectomy: Code(s): Z90.49 - Acquired absence of other specified parts of digestive tract Category: Medical Plan Patient was been given local instructions including avoiding strenuous activities next few weeks time will otherwise follow-up p.r.n.. All questions answered. Coding Level of Care Code Global (59538) Diagnoses Status post laparoscopic cholecystectomy Z90.49
== END 2024-07-02 08:37 | disposition home or self-care (01) ==
PROVIDERS: PCP Internal Medicine; Visit Provider Surgery
DX: Z90.49 Acquired absence of other specified parts of digestive tract (principal)
CPT/HCPCS: 99024

== ENCOUNTER → 2024-07-02 08:28 | Outpatient (BNVA) | payer MEDICARE, OTHER, SELFPAY | PROVIDERS: PCP Internal Medicine; Visit Provider Surgery | DX: K85.10 Biliary acute pancreatitis without necrosis or infection (principal); I10 Essential (primary) hypertension; Z79.899 Other long term (current) drug therapy; Z90.49 Acquired absence of other specified parts of digestive tract | CPT/HCPCS: 99212; 99495 ==

== ENCOUNTER 2024-07-02 14:51 | Outpatient (AMB) | payer MEDICARE, OTHER, SELFPAY ==
--- NOTE | 2024-07-02 15:30 | MHC.PC.OV ---
Vital Signs 07/02/24 15:31 Height 5 ft 1 in Weight 171 lb 2 oz BMI 32.3 BP 136/78 Blood Pressure Location Lt brachial Position Sitting Pulse 89 Pulse Source Pulse Oximeter Pulse Oximetry (%) 98 Oxygen Delivery Method Room Air Intake Visit Reasons: [place]CM [facility] [place] [place] Intake Note: Patient is here for hospital discharge and TCM follow up. Patient was [place] [facility] [place]. 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 ? Date of admission: 06/17/2024 Date of discharge: This is a Follow-up from admission at [facility] HPI: Patient was admitted for abdominal pain. ER visited confirmed a diagnosis of gallstone pancreatitis Hospital Course/Discharge Summary: Pt underwent a ERCP and Lap Cholecystectomy, Hospital course complicated by hypertension and tachycardia Discharged to/Current Location: Home Lives with: Diagnosis: Procedures performed:Cholecystectomy and ERCP New medications: Amlodipine 5 mg, PO daily Discontinued medications: None Change medications/dosing: Pending labs: None Pending diagnostic test: NO Any Follow-up Labs required? No Any Follow-up Diagnostic test required? No How are you feeling? GOOD Are you in any pain or discomfort? No Do you have any questions about your condition or discharge instructions? None Were you able to get your medications filled? Yes Do you have any questions about your medications? NO Any referrals required? Yes, General Surgeon follow up Were you able to schedule your follow-up appointment? Yes If home health was ordered, have they contact you? NA Any outpatient services, if so, are you scheduled? NA Are there any additional resources like transportation you might need during her recovery? ? - VNA? - SWIMMING POOL SERVICER? - Meals on wheels? Educational need/resources: What support system do you have? [employer] Medical History (Updated 07/09/24 @ 14:55 by Prince Esposito MD) Hypertension Preoperative cardiovascular examination Familial hypercholesterolemia Anxiety Cholelithiasis Surgical History S/P laparoscopic cholecystectomy Hx laparoscopic cholecystectomy (06/19/24) H/O colonoscopy S/P bilateral oophorectomy Family History Mother Lung cancer Father Stroke Sister Breast cancer Social History Household Members: Spouse Housing: House Do you presently have visiting nurse or other home services: No Alcohol intake: current Alcohol intake frequency: does not drink Patient Tobacco Use Status: Never used Tobacco e-Cigarette/Vaping Use: Never Used Second Hand Smoke Exposure: No service: No Current occupational status: retired Cognitive needs: No Hearing needs: No Vision needs: Yes Questionnaire Thrive Questionnaire Date Thrive assessed: 06/18/24 AUDIT C Alcohol Use Questionnaire (AUDIT-C) 2. How many drinks containing alcohol do you have on a typical day when you are drinking?: 1 or 2 3. How often do you have six or more drinks on one occasion?: Never Total Score: 0 GEOVANI-7 AMB Questionnaire GEOVANI-7 Date GEOVANI - 7 assessed: 07/18/23 Source: Developed by Drs. Yohannes Guevara, Pam Villaseñor, Chriss Ring and colleagues, with an educational marvin from [employer]. Physical exam (Primary Care) Vital Signs: Last Vital Signs Pulse 89 07/02/24 15:31 BP 136/78 07/02/24 15:31 Pulse Ox 98 07/02/24 15:31 Oxygen Delivery Method Room Air 07/02/24 15:31 BMI result Body Mass Index 32.3 Tobacco/Smoking Status: Tobacco use Status Tobacco use date assessed 07/02/24 07/02/24 15:31 Patient Tobacco Use Status Never used Tobacco 07/02/24 15:31 e-Cigarette/Vaping Use Never Used 07/02/24 15:31 Thrive Assessment: Date of Thrive Assessment Date Thrive assessed 06/18/24 07/02/24 15:31 Const General: cooperative and healthy appearing Nutritional Appearance: well nourished Orientation/consciousness: patient oriented x3 Limitations: no limitations HENMT Head: Yes normal to inspection Eyes General: appearance normal, both eyes and all related structures Neck Neck: Yes normal visual inspection Chest Chest palpation & inspection: normal palpation of entire chest wall Resp Effort & Inspection: normal respiratory effort Neuro General: patient oriented x3 Coding Level of Care Code TCM Mod MDM <= 14 Days Complex EM visit Add On G2211 Diagnoses Gallstone pancreatitis K85.10 Hypertension I10 Assessment & Plan Assessment & Plan (1) Gallstone pancreatitis: Code(s): K85.10 - Biliary acute pancreatitis without necrosis or infection Plan: See above (2) Hypertension: Code(s): I10 - Essential (primary) hypertension Category: Medical Plan: BP is in range. Continue meds at same dosage
[2024-07-02 15:31] VITALS: BP 136/78; PULSE 89; O2SAT 98; BMI 32.3
== END 2024-07-02 16:10 | disposition home or self-care (01) ==
PROVIDERS: PCP Internal Medicine; Visit Provider Internal Medicine
DX: K85.10 Biliary acute pancreatitis without necrosis or infection (principal); I10 Essential (primary) hypertension

== ENCOUNTER 2024-07-09 08:37 | Outpatient (REF) | payer MEDICARE, OTHER, SELFPAY ==
[2024-07-09 10:26] LABS: Appearance Urine Clear; Color Urine Yellow; Glucose Urine UA Negative (Negative); Leukocyte Esterase Urine Small (1+) (Negative); Nitrite Urine Negative (Negative); Specific Gravity - Urine 1.025 (1.005-1.025); UMIC TRIGGER UA YES; Urine Blood Negative (Negative); Urine Ketones Negative (Negative); Urine Protein Negative (Neg-Trace)
[2024-07-09 10:32] LABS: Bacteria Urine Trace (None Seen); Hyaline Casts Urine 0-2 /LPF (0-2); RBC Urine 0-2 /HPF (0-2)
[2024-07-09 10:36] LABS: Hematocrit 40.3 % (37.0-47.0); Mean Corpuscular HGB Conc 32.3 g/dl (31.0-35.0); Mean Corpuscular Hemoglobin 29.5 pg (27.0-33.0); Mean Corpuscular Volume 91.4 fL (80.0-98.0); Mean Platelet Volume 11.6 fL (9.4-12.3); Platelet Count 329 X10*3/uL (160-400); Red Blood Count 4.41 X10*6/uL (4.20-5.50); White Blood Count 6.6 X10*3/uL (4.8-10.8)
[2024-07-09 10:58] LABS: Alanine Aminotransferase 26 U/L (0-31); Albumin Level 4.1 g/dL (3.5-5.0); Alkaline Phosphatase 68 U/L (39-117); Anion Gap 12 (12-20); Aspartate Amino Transferase 23 U/L (5-31); Bilirubin Direct 0.2 mg/dL (0.0-0.5); Bilirubin Total 0.8 mg/dL (0.0-1.0); Blood Urea Nitrogen 21 mg/dL (9-16); Calcium 9.7 mg/dL (8.4-10.2); Carbon Dioxide 25 mmol/L (22-29); Chloride 110 mmol/L (96-108); Cholesterol 179 mg/dL (<200); Estimated Glomerular Filt Rate > 60; Glucose Random 103 mg/dL (60-115); HDL Cholesterol 41 mg/dL (>40); LDL Cholesterol Calculated 109 mg/dL (<100); Potassium 3.8 mmol/L (3.3-5.1); Sodium 143 mmol/L (135-145); Total Protein 6.6 g/dL (6.5-8.0); Triglycerides 147 mg/dL (<150)
[2024-07-09 11:18] LABS: Thyroid Stimulating Hormone 1.09 uIU/mL (0.32-4.0)
== END 2024-07-09 08:38 | disposition home or self-care (01) ==
LOC: HO.HMGCLDS 08:37
PROVIDERS: PCP Internal Medicine; Visit Provider Internal Medicine
DX: I49.8 Other specified cardiac arrhythmias (principal); Z90.49 Acquired absence of other specified parts of digestive tract
CPT/HCPCS: 36415; 80048; 80061; 80076; 81001; 84443; 85027

== ENCOUNTER 2024-08-24 09:35 | Outpatient (REF) | payer MEDICARE, OTHER, SELFPAY ==
--- OUTSIDE RECORDS SUMMARY | 2024-08-24 10:06 | XMS_ITS | Clinical Summary ---
Author Organization [facility] [address] [address] Care Team Providers Care Health Safety Manager Name Role Phone Unavailable Primary Care Provider Unavailabl e Social History Tobacco Use Types Packs/Day Years Used Date Smoking Tobacco: Never Assessed Sex and Gender Information Value Date Recorded Sex Assigned at Not on file Gender Identity Not on file Sexual Orientation Not on file Plan of Treatment Health Maintenance Due Date Last Done Comments CT Colonography 1949 Colonoscopy 1949 Colorectal Cancer Screening 1949 FIT DNA 1949 FIT 1949 Sigmoidoscopy (10 year) with FIT yearly 1949 Sigmoidoscopy 1949 Hepatitis C Screening 1967 Tetanus/Diphtheria/Pertussis Vaccines (1 - Tdap) 03/02 Pneumoccocal Vaccine: 50+ (1 of 1 - PCV) 1999 Zoster vaccine (1 of 2) 1999 Advance Directive 2004 Bone Density Scan 2014 RSV Vaccine (1 - 1-dose 75+ series) 2024 Covid-19 Vaccine (1 - season) 2024 Influenza (Flu) vaccine (1 o f 1 - Influenza standard series) 03/04/2024
== END 2024-08-24 09:36 | disposition home or self-care (01) ==
LOC: HO.MAMMO 09:35
PROVIDERS: PCP Internal Medicine; Visit Provider Internal Medicine
DX: Z12.31 Encounter for screening mammogram for malignant neoplasm of breast (principal)
CPT/HCPCS: 77063; 77067

== ENCOUNTER → 2024-08-24 09:45 | Outpatient (BNV) | payer MEDICARE, OTHER, SELFPAY | PROVIDERS: PCP Internal Medicine; Visit Provider Internal Medicine | DX: Z12.31 Encounter for screening mammogram for malignant neoplasm of breast (principal) | CPT/HCPCS: 77063; 77067 ==